=== PATIENT | male | born 1965 | race Hispanic/Latino ===

== ENCOUNTER 2017-04-18 15:31 | Emergency (ER) | payer MEDICAID, MEDICARE ==
[2017-04-18 16:16] LABS: Basophils % (Auto) 1.8 % (0.0-1.8); Eosinophils % (Auto) 8.4 % (0.0-4.3); Hematocrit 47.3 % (35.5-45.6); Hemoglobin 16.2 gm/dl (11.8-15.2); Mean Corpuscular HGB Conc 34 % (32-34); Mean Corpuscular Hemoglobin 32 pg (28-32); Mean Corpuscular Volume 94 fl (84-94); Red Blood Count 5.05 M/mm3 (3.65-5.03); Red Cell Distribution Width 13.5 % (13.2-15.2); White Blood Count 9.5 K/mm3 (4.5-11.0)
[2017-04-18 16:17] LABS: Platelet Count 210 K/mm3 (140-440)
[2017-04-18 16:30] LABS: Anion Gap 18 mmol/L; BUN/Creatinine Ratio 7; Blood Urea Nitrogen 4 mg/dL (9-20); Calcium 8.7 mg/dL (8.4-10.2); Carbon Dioxide 27 mmol/L (22-30); Chloride 97.9 mmol/L (98-107); Glucose 85 mg/dL (75-100); Potassium 4.2 mmol/L (3.6-5.0); Sodium 139 mmol/L (137-145)
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
[2017-04-18] MEDS ORDERED: NORCO 5/325 PO ONE (20:47)
[2017-04-18 22:29] VITALS: BP 140/92
== END 2017-04-18 22:45 | disposition left against medical advice (07) ==
LOC: ED 15:31
DX: R07.89 Other chest pain (principal); I10 Essential (primary) hypertension; R56.9 Unspecified convulsions; F17.200 Nicotine dependence, unspecified, uncomplicated; Z88.8 Allergy status to other drugs, medicaments and biological substances; Y04.8XXA Assault by other bodily force, initial encounter; Y93.89 Activity, other specified; Y92.89 Other specified places as the place of occurrence of the external cause; Y99.8 Other external cause status
CPT/HCPCS: 36415; 71111; 80048; 84484; 85025; 93005; 93010; 99283

== ENCOUNTER 2017-05-14 15:48 | Emergency (ER) | payer MEDICARE ==
[2017-05-14 17:17] LABS: Bilirubin,Urine NEG (Negative); Blood,Urine SM (Negative); Ketones,Urine NEG (Negative); Leukocyte Esterase,Urine NEG (Negative); Nitrite,Urine NEG (Negative); Protein,Urine <15 mg/dL mg/dL (Negative); Urobilinogen,Urine < 2.0 mg/dL (<2.0); WBC,Urine < 1.0 /HPF (0.0-6.0)
[2017-05-14 17:19] LABS: Hematocrit 44.3 % (35.5-45.6); Hemoglobin 15.7 gm/dl (11.8-15.2); Mean Corpuscular HGB Conc 36 % (32-34); Mean Corpuscular Hemoglobin 33 pg (28-32); Mean Corpuscular Volume 92 fl (84-94); Platelet Count 252 K/mm3 (140-440); Red Blood Count 4.79 M/mm3 (3.65-5.03); Red Cell Distribution Width 13.4 % (13.2-15.2); White Blood Count 9.8 K/mm3 (4.5-11.0)
[2017-05-14 17:25] LABS: Alanine Aminotransferase 67 units/L (7-56); Albumin 3.7 g/dL (3.9-5); Albumin/Globulin Ratio 1.4 %; Alkaline Phosphatase 106 units/L (35-129); Anion Gap 18 mmol/L; BUN/Creatinine Ratio 4; Blood Urea Nitrogen 3 mg/dL (9-20); Calcium 8.8 mg/dL (8.4-10.2); Carbon Dioxide 27 mmol/L (22-30); Chloride 99.1 mmol/L (98-107); Glucose 86 mg/dL (75-100); Lipase 38 units/L (13-60); Potassium 3.2 mmol/L (3.6-5.0); Sodium 141 mmol/L (137-145); Total Protein 6.4 g/dL (6.3-8.2)
[2017-05-14] MEDS ORDERED: K-DUR PO ONE (17:32)
[2017-05-14] MEDS ORDERED: BENTYL IM ONE (17:59)
[2017-05-14] MEDS ORDERED: ZOFRAN IV ONE (18:00)
--- NOTE | 2017-05-14 19:33 | Ultrasound Report ---
FINAL REPORT EXAM: US ABDOMEN LIMITED HISTORY: RUQ pain TECHNIQUE: Ultrasound abdomen PRIORS: None. FINDINGS: Liver demonstrates mildly diffuse echogenicity may reflect fatty infiltration No evidence of cholelithiasis or gallbladder wall thickening. No pericholecystic fluid seen. The common bile duct is within normal limits measuring 0.3 centimeters Right kidney demonstrates no evidence of hydronephrosis. It measures 12.5 x 5.7 x 5.3 centimeters cortical thickness is 1.4 centimeters There is some limitations due to patient body habitus IMPRESSION: Mild fatty infiltration of the liver No evidence for cholelithiasis or acute cholecystitis
[2017-05-14 19:40] VITALS: BP 151/101
--- NOTE | 2017-05-14 20:09 | Emergency Department Report ---
ED Abdominal Pain HPI - General Chief Complaint: Abdominal Pain Stated Complaint: ABD PAIN Time Seen by Provider: 05/14/17 17:24 Source: patient Mode of arrival: Stretcher Limitations: No Limitations - History of Present Illness Initial Comments: Patient with RUQ pain for over a month with an US done 2 weeks ago. He saw his PCP today, Dr. Salcedo, who told him he had a bad gallbladder and sent him to outpatient surgery and sent in [facility]. Patient came here instead. He did tell me the US said it was infected. No F/C. MD Complaint: abdominal pain -: Gradual, week(s) (4) Location: RUQ Radiation: none Migration to: no migration Severity scale (0 -10): 8 Quality: cramping, sharp Consistency: constant Improves With: nothing Worsens With: eating Associated Symptoms: nausea, vomiting - Related Data Allergies Allergy/AdvReac Type Severity Reaction Status Date / Time chlorpromazine Allergy Seizure Verified 04/18/17 15:47 [From Thorazine] phenobarbital Allergy Seizure Verified 04/18/17 15:47 phenytoin [From Dilantin] Allergy Seizure Verified 04/18/17 15:47 ED Review of Systems ROS: Stated complaint: ABD PAIN Other details as noted in HPI Constitutional: denies: chills, fever Eyes: denies: eye pain, eye discharge, vision change ENT: denies: ear pain, throat pain Respiratory: denies: cough, shortness of breath, wheezing Cardiovascular: denies: chest pain, palpitations Endocrine: no symptoms reported Gastrointestinal: abdominal pain, nausea. denies: diarrhea Genitourinary: denies: urgency, dysuria Musculoskeletal: denies: back pain, joint swelling, arthralgia Skin: denies: rash, lesions Neurological: denies: headache, weakness, paresthesias Psychiatric: denies: anxiety, depression Hematological/Lymphatic: denies: easy bleeding, easy bruising ED Past Medical Hx - Past Medical History Previous Medical History?: Yes Hx Hypertension: Yes Hx Seizures: Yes Hx Psychiatric Treatment: Yes - Surgical History Past Surgical History?: Yes Additional Surgical History: Lower Back. Right Hip - Social History Smoking Status: Current Every Day Smoker Substance Use Type: None ED Physical Exam - General Limitations: No Limitations General appearance: alert, in no apparent distress - Head Head exam: Present: atraumatic, normocephalic - Eye Eye exam: Present: normal appearance - ENT ENT exam: Present: mucous membranes moist - Neck Neck exam: Present: normal inspection - Respiratory Respiratory exam: Present: normal lung sounds bilaterally. Absent: respiratory distress - Cardiovascular Cardiovascular Exam: Present: regular rate, normal rhythm. Absent: systolic murmur, diastolic murmur, rubs, gallop - GI/Abdominal GI/Abdominal exam: Present: soft, tenderness (RUQ with positive Hinson's sign. No peritonitis or guarding.), normal bowel sounds - Rectal Rectal exam: Present: deferred - Extremities Exam Extremities exam: Present: normal inspection - Back Exam Back exam: Present: normal inspection - Neurological Exam Neurological exam: Present: alert, oriented X3 - Psychiatric Psychiatric exam: Present: normal affect, normal mood - Skin Skin exam: Present: warm, dry, intact, normal color. Absent: rash ED Course Vital Signs 05/14/17 05/14/17 05/14/17 16:00 16:25 16:52 Temperature 98.8 F 98.7 F Pulse Rate 94 H 94 H Respiratory 20 18 15 Rate Blood Pressure 170/90 Blood Pressure 162/102 [Right] O2 Sat by Pulse 99 96 97 Oximetry 05/14/17 05/14/17 05/14/17 17:00 17:16 17:30 Temperature Pulse Rate 98 H 88 93 H Respiratory 12 17 17 Rate Blood Pressure 148/105 157/100 157/100 Blood Pressure [Right] O2 Sat by Pulse 96 97 100 Oximetry 05/14/17 05/14/17 05/14/17 17:46 18:22 18:30 Temperature Pulse Rate 94 H Respiratory 12 Rate Blood Pressure 170/108 170/108 157/104 Blood Pressure [Right] O2 Sat by Pulse 99 99 98 Oximetry 05/14/17 05/14/17 05/14/17 18:46 19:00 19:16 Temperature Pulse Rate 97 H 94 H 94 H Respiratory 15 17 18 Rate Blood Pressure 157/104 157/104 151/101 Blood Pressure [Right] O2 Sat by Pulse 98 97 94 Oximetry 05/14/17 05/14/17 19:30 19:40 Temperature 98.9 F Pulse Rate 97 H Respiratory 17 Rate Blood Pressure 151/101 Blood Pressure [Right] O2 Sat by Pulse 97 Oximetry ED Medical Decision Making - Lab Data Result diagrams: 05/14/17 16:49 05/14/17 16:49 Low potassium but otherwise unremarkable. - EKG Data -: EKG Interpreted by Me EKG shows normal: sinus rhythm, intervals (prolonged LA interval. ), QRS complexes (multiple PVCs), ST-T waves (no changes.) Rate: normal - EKG Data Interpretation: no acute changes - Radiology Data Radiology results: report reviewed No cholecystitis or cholelithiasis. - Medical Decision Making Patient with RUQ pain and told abnormal US and sent to General surgery. I have told him his gallbladder is not infected and he should follow up with the referal given by his PCP. He should get the bentyl from the pharmacy as he was sure that was the medication sent into the pharmacy. Critical care attestation.: If time is entered above; I have spent that time in minutes in the direct care of this critically ill patient, excluding procedure time. ED Disposition Clinical Impression: Abdominal pain, RUQ Disposition: DC-01 TO HOME OR SELFCARE Is pt being admited?: No Does the pt Need Aspirin: No Condition: Good Instructions: Abdominal Pain (ED), Non-Alcoholic Fatty Liver Disease (ED) Referrals: Mary Salcedo [Other] - 3-5 Days Time of Disposition: 20:14
== END 2017-05-14 20:31 | disposition home or self-care (01) ==
LOC: ED 15:48
DX: R10.11 Right upper quadrant pain (principal)
CPT/HCPCS: 36415; 76705; 80053; 81001; 83690; 85025; 93005; 93010; 96372; 96374; 99284; J0500; J2405

== ENCOUNTER 2017-08-13 23:04 | Emergency (ER) | payer MEDICARE ==
[2017-08-13] MEDS ORDERED: ASPIRIN PO ONE (23:34)
[2017-08-13 23:59] LABS: Basophils # (Auto) 0.1 K/mm3 (0.0-0.1); Basophils % (Auto) 1.1 % (0.0-1.8); Eosinophils # (Auto) 0.9 K/mm3 (0.0-0.4); Eosinophils % (Auto) 7.1 % (0.0-4.3); Hematocrit 49.1 % (35.5-45.6); Hemoglobin 17.1 gm/dl (11.8-15.2); Lymphocytes # (Auto) 2.9 K/mm3 (1.2-5.4); Lymphocytes % (Auto) 21.9 % (13.4-35.0); Mean Corpuscular HGB Conc 35 % (32-34); Mean Corpuscular Hemoglobin 33 pg (28-32); Mean Corpuscular Volume 94 fl (84-94); Monocytes % (Auto) 7.3 % (0.0-7.3); Platelet Count 284 K/mm3 (140-440); Red Blood Count 5.24 M/mm3 (3.65-5.03); Red Cell Distribution Width 13.9 % (13.2-15.2)
[2017-08-14 00:14] LABS: BUN/Creatinine Ratio 11; Blood Urea Nitrogen 9 mg/dL (9-20); Calcium 8.7 mg/dL (8.4-10.2); Hemolysis Index 30
--- NOTE | 2017-08-14 07:46 | Emergency Department Report ---
ED Chest Pain HPI - General Chief Complaint: Chest Pain Stated Complaint: CP; WEAKNESS Time Seen by Provider: 08/14/17 07:42 Source: patient Mode of arrival: Stretcher Limitations: No Limitations - Related Data Allergies Allergy/AdvReac Type Severity Reaction Status Date / Time chlorpromazine Allergy Seizure Verified 04/18/17 15:47 [From Thorazine] phenobarbital Allergy Seizure Verified 04/18/17 15:47 phenytoin [From Dilantin] Allergy Seizure Verified 04/18/17 15:47 ED Review of Systems ROS: Stated complaint: CP; WEAKNESS Other details as noted in HPI ED Past Medical Hx - Past Medical History Hx Hypertension: Yes Hx Heart Attack/AMI: Yes (PVC's) Hx Seizures: Yes Hx Psychiatric Treatment: Yes (Bipolar) Additional medical history: Sleep Apnea - Surgical History Additional Surgical History: Lower Back. Right Hip - Social History Smoking Status: Current Every Day Smoker Substance Use Type: None ED Physical Exam - General Limitations: No Limitations ED Course Vital Signs 08/13/17 08/13/17 23:16 23:27 Temperature 98.1 F 98.1 F Pulse Rate 98 H 98 H Respiratory 18 18 Rate Blood Pressure 179/107 179/107 O2 Sat by Pulse 96 96 Oximetry ED Medical Decision Making - Lab Data Result diagrams: 08/13/17 23:48 08/13/17 23:48 Laboratory Results - last 24 hr 08/13/17 08/13/17 08/14/17 23:48 23:48 02:59 WBC 13.1 H RBC 5.24 H Hgb 17.1 H Hct 49.1 H MCV 94 MCH 33 H MCHC 35 H RDW 13.9 Plt Count 284 Lymph % (Auto) 21.9 [place] % (Auto) 7.3 Eos % (Auto) 7.1 H Baso % (Auto) 1.1 Lymph # 2.9 [place] # 1.0 H Eos # 0.9 H Baso # 0.1 Seg Neutrophils % 62.6 Seg Neutrophils # 8.2 H Sodium 137 Potassium 3.4 L Chloride 96.0 L Carbon Dioxide 24 Anion Gap 20 BUN 9 Creatinine 0.8 Estimated GFR > 60 BUN/Creatinine Ratio 11 Glucose 108 H Calcium 8.7 Troponin T < 0.010 < 0.010 08/14/17 05:52 WBC RBC Hgb Hct MCV MCH MCHC RDW Plt Count Lymph % (Auto) [place] % (Auto) Eos % (Auto) Baso % (Auto) Lymph # [place] # Eos # Baso # Seg Neutrophils % Seg Neutrophils # Sodium Potassium Chloride Carbon Dioxide Anion Gap BUN Creatinine Estimated GFR BUN/Creatinine Ratio Glucose Calcium Troponin T < 0.010 Critical care attestation.: If time is entered above; I have spent that time in minutes in the direct care of this critically ill patient, excluding procedure time. ED Disposition Condition: Stable Referrals: RONNIE GABRIEL MD [Primary Care Provider] - 3-5 Days
--- NOTE | 2017-08-14 08:41 | XRay Report ---
AP CHEST: HISTORY: Cough AP view of the chest demonstrates a normal mediastinal and cardiac contour with clear lungs and normal bony and soft tissue structures. IMPRESSION: No acute process. No significant change since 04/18/17.
[2017-08-14 08:50] LABS: INR 0.88 (0.87-1.13)
[2017-08-14 08:51] LABS: Partial Thromboplastin Time 25.3 Sec. (24.2-36.6)
--- NOTE | 2017-08-14 09:34 | Cat Scan Report ---
CT ABDOMEN PELVIS WITH CONTRAST: HISTORY: Right upper quadrant abdominal pain. COMPARISON: none. TECHNIQUE: Helical CT in 1.25mm intervals following IV contrast. Sagittal and coronal reconstructions. FINDINGS: Lung bases: Normal. Liver: There is moderate diffuse fatty infiltration throughout the liver. No focal mass or surface nodularity. The portal venous system is patent. Biliary system: Normal. Pancreas: Normal. Spleen: Normal. Kidneys/ureters/bladder: There are 2 exophytic cysts at the inferior pole the left kidney measuring up to 2.5 cm. The kidneys, ureters and bladder are within normal limits otherwise. Normal prostate gland. Adrenal glands: Normal. Aorta: Normal. Intestines: Normal. Appendix: Appendectomy. Ascites: None. Adenopathy: None. Musculoskeletal: Mild lumbar spondylosis. IMPRESSION: No acute process is identified in the abdomen or pelvis. Fatty change of the liver. Left renal cysts. Appendectomy.
[2017-08-14 09:56] VITALS: BP 161/110
[2017-08-14 16:06] LABS: Alanine Aminotransferase 58 units/L (7-56); Lipase 38 units/L (13-60)
[2017-08-14 16:09] LABS: Bilirubin,Direct < 0.2 mg/dL (0-0.2)
== END 2017-08-14 14:39 | disposition home or self-care (01) ==
LOC: ED 23:04
DX: R07.89 Other chest pain (principal); R53.1 Weakness
CPT/HCPCS: 36415; 71045; 74177; 80048; 80074; 82140; 83690; 83735; 83880; 84484; 85025; 85610; 85730; 87040; 93005; 93010; Q9967

== ENCOUNTER 2018-03-01 13:30 | Emergency (ER) | payer MEDICARE ==
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
[2018-03-01 14:47] LABS: Hematocrit 45.6 % (35.5-45.6); Hemoglobin 15.7 gm/dl (11.8-15.2); Mean Corpuscular HGB Conc 34 % (32-34); Mean Corpuscular Hemoglobin 32 pg (28-32); Mean Corpuscular Volume 94 fl (84-94); Platelet Count 246 K/mm3 (140-440); Red Blood Count 4.85 M/mm3 (3.65-5.03); Red Cell Distribution Width 13.8 % (13.2-15.2)
[2018-03-01 14:48] LABS: INR 0.92 (0.87-1.13)
[2018-03-01 14:49] LABS: Partial Thromboplastin Time 23.9 Sec. (24.2-36.6)
[2018-03-01 14:52] LABS: Alanine Aminotransferase 25 units/L (7-56); Albumin 4.3 g/dL (3.9-5); BUN/Creatinine Ratio 10; Blood Urea Nitrogen 9 mg/dL (9-20); Calcium 9.5 mg/dL (8.4-10.2); Hemolysis Index 4
--- NOTE | 2018-03-01 14:55 | XRay Report ---
FINAL REPORT EXAM: XR CHEST ROUTINE 2V HISTORY: CP TECHNIQUE: Frontal and lateral chest x-ray. PRIORS: None. FINDINGS: Cardiac and mediastinal silhouette within normal limits. Lungs are normally expanded. No significant vascular congestion. No focal consolidation, apparent pleural effusion or pneumothorax. Bony thorax grossly unremarkable. IMPRESSION: 1. No acute findings.
[2018-03-01] MEDS ORDERED: LACTATED RINGERS 1,000 ML IV SCH (15:00)
[2018-03-01 15:44] LABS: Bilirubin,Urine NEG (Negative); Blood,Urine NEG (Negative); Color,Urine Colorless (Yellow); Protein,Urine <15 mg/dL mg/dL (Negative); RBC,Urine < 1.0 /HPF (0.0-6.0); Urobilinogen,Urine < 2.0 mg/dL (<2.0); WBC,Urine < 1.0 /HPF (0.0-6.0)
[2018-03-02 17:24] VITALS: BP 138/84
== END 2018-03-02 17:22 ==
LOC: ED 13:30 → EEVIPCON 13:30 → ED 03-02 17:22
DX: F41.9 Anxiety disorder, unspecified (principal); F31.9 Bipolar disorder, unspecified; I10 Essential (primary) hypertension; I25.2 Old myocardial infarction; F17.200 Nicotine dependence, unspecified, uncomplicated; Z86.73 Personal history of transient ischemic attack (TIA), and cerebral infarction without residual deficits; Z88.8 Allergy status to other drugs, medicaments and biological substances
CPT/HCPCS: 36415; 71046; 80053; 80164; 81001; 84484; 85027; 85610; 85730; 93005; 93010; 99284; J7120

== ENCOUNTER 2019-01-27 20:09 | Observation (INO) | payer MEDICARE ==
[2019-01-27] MEDS ORDERED: NACL 0.9% 1000 ML 1,000 ML ONE (20:40)
[2019-01-27] MEDS ORDERED: ASPIRIN PO ONE (20:43)
[2019-01-27] MEDS ORDERED: NACL 0.9% 1000 ML 1,000 ML IV ONE (20:45)
[2019-01-27 21:09] LABS: Hematocrit 42.8 % (35.5-45.6); Hemoglobin 14.9 gm/dl (11.8-15.2); Mean Corpuscular HGB Conc 35 % (32-34); Mean Corpuscular Volume 92 fl (84-94); Red Blood Count 4.65 M/mm3 (3.65-5.03)
[2019-01-27 21:10] LABS: Platelet Count 244 K/mm3 (140-440)
[2019-01-27 21:54] LABS: Calcium 9.2 mg/dL (8.4-10.2)
[2019-01-27] MEDS ORDERED: ZOFRAN IV PRN (22:26)
[2019-01-27] MEDS ORDERED: SODIUM CHLORIDE FLUSH SYRINGE 10 ML IV PRN (22:26)
[2019-01-27] MEDS ORDERED: TYLENOL PO PRN (22:26)
--- NOTE | 2019-01-27 22:27 | XRay Report ---
CHEST 1 VIEW INDICATION / CLINICAL INFORMATION: Chest Pain. COMPARISON: 01/21/2019 FINDINGS: SUPPORT DEVICES: None. HEART / MEDIASTINUM: No significant abnormality. LUNGS / PLEURA: No significant pulmonary or pleural abnormality. No pneumothorax. ADDITIONAL FINDINGS: Nodular density in the previous examination projecting over the right lower tino thorax is not reproduced. IMPRESSION: 1. No acute findings. Signer Name: Toby Shultz MD Signed: 01/27/2019 10:22 PM Workstation Name: [id number]
--- NOTE | 2019-01-27 22:29 | History and Physical Report ---
History of Present Illness Date of examination: 01/27/19 History of present illness: 53 -year-old with history of hypertension, bipolar, coronary artery disease, Bipolar, hyperlipidemia,. CHF comes emergency room with complaints of chest pain in the epigastric. The patient was just discharged from the hospital this morn ing, s/p stent to the LAD. He described pain as stabbing, intermittent every 30 minutes, intensity 5/10, relieved with nitroglycerin, associated with shortness breath, diaphoresis, no nausea, vomiting, palpitations eview Of Systems: Constitutional: no weight loss, fever, chills Ears, eyes, nose, mouth and throat: no nasal congestion, no nasal discharge, no sinus pressure, blurry vision, diplopia Neck: No neck pain or rigidity. Cardiovascular: No palpitations Respiratory: No cough Gastrointestinal: No hematochezia, abdominal pain Genitourinary : no dysuria, frequency , hematuria Musculoskeletal: no muscle ache , joint pain Integumentary: no rash, no pruritis Neurological: no parathesias, focal weakness Endocrine: no cold or heat intolerance, no polyuria or polydipsia Hematologic/Lymphatic: no easy bruising, no easy bleeding, no gland swelling Allergic/Immunologic: no urticaria, no angioedema. PAST MEDICAL HISTORY:hypertension, bipolar, coronary artery disease, Bipolar, hyperlipidemia,. CHF PAST SURGICAL HISTORY: Cyst removal from back FAMILY HISTORY:hypertension, diabetes SOCIAL HISTORY: Denies tobacco, drugs, alcohol Medications and Allergies Allergies Allergy/AdvReac Type Severity Reaction Status Date / Time chlorpromazine Allergy Seizure Verified 04/18/17 15:47 [From Thorazine] phenobarbital Allergy Seizure Verified 04/18/17 15:47 phenytoin [From Dilantin] Allergy Seizure Verified 04/18/17 15:47 Home Medications Medication Instructions Recorded Confirmed Last Taken Type Lansoprazole [Prevacid] 15 mg PO BID #30 cap 06/05/18 01/23/19 Unknown Rx Quetiapine Fumarate [Seroquel] 400 mg PO QHS 01/24/19 01/23/19 Unknown History Aspirin EC [Halfprin EC] 81 mg PO QDAY #30 tablet. 01/27/19 Unknown Rx AtorvaSTATin [Lipitor] 40 mg PO QHS #30 tablet 01/27/19 Unknown Rx Carvedilol [Coreg] 6.25 mg PO BID #60 tablet 01/27/19 Unknown Rx Clopidogrel [Plavix] 75 mg PO QDAY #30 tablet 01/27/19 Unknown Rx Furosemide [Lasix TAB] 20 mg PO QDAY #30 tablet 01/27/19 Unknown Rx Lisinopril [Zestril TAB] 10 mg PO QDAY #30 tablet 01/27/19 Unknown Rx Exam - Physical Exam Narrative exam: General Apperance: The patient sitting in bed no acute distress HEENT: Normocephalic, atraumatic. Pupils equally round and reactive to light, e xtraocular movement intact, and no sclericterus or JVD or thyromegaly or nodule. Neck supple, no carotid bruit, mucous membranes moist, no exudate or erythema Heart: S1-S2, regular is rhythm Lungs: Clear to auscultation bilaterally, breathing comfortable Abdomen: Positive bowel sounds, soft, nontender, nondistended, no organomegaly Extremities: No edema cyanosis clubbing Skin: no rash, nodule, warm and dry Neuro:CN 2 -12 intact, motor/sensory intact, speech is fluent - Constitutional Vitals: Temp Pulse Resp BP Pulse Ox 76 15 107/70 95 01/27/19 22:00 01/27/19 22:00 01/27/19 22:00 01/27/19 20:46 Results - Labs CBC & Chem 7: 01/27/19 20:51 01/27/19 20:51 Labs: Abnormal lab results 01/27/19 01/27/19 Range/Units 20:51 20:51 WBC 13.8 H (4.5-11.0) K/mm3 MCHC 35 H (32-34) % RDW 13.0 L (13.2-15.2) % Creatinine 1.7 H D (0.8-1.5) mg/dL Troponin T 0.169 H* (0.00-0.029) ng/mL - Imaging and Cardiology EKG: image reviewed Chest x-ray: report reviewed Assessment and Plan Assessment Chest pain Recent stent to LAD coronary artery disease hypertension Bipolar hyperlipidemia . Chronic kidney disease Plan Admit to medicine Check cardiac enzymes, consult cardiology Continue appropiate medications, start gentle IV fluids DVT medications
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
[2019-01-28 00:03] LABS: Basophils % (Manual) 0 % (0.0-1.8); Platelet Estimate Consistent w Auto; RBC Morphology Normal; Total Cells Counted 100
[2019-01-28 01:14] LABS: Basophils # (Auto) 0.1 K/mm3 (0.0-0.1); Basophils % (Auto) 1.1 % (0.0-1.8); Eosinophils # (Auto) 0.8 K/mm3 (0.0-0.4); Eosinophils % (Auto) 6.2 % (0.0-4.3); Lymphocytes # (Auto) 2.9 K/mm3 (1.2-5.4); Monocytes # (Auto) 1.2 K/mm3 (0.0-0.8); Monocytes % (Auto) 8.6 % (0.0-7.3)
[2019-01-28 02:17] LABS: Creatine Kinase MB 3.8 ng/mL (0.0-4.0)
[2019-01-28 04:51] LABS: Basophils # (Auto) 0.1 K/mm3 (0.0-0.1); Basophils % (Auto) 0.8 % (0.0-1.8); Eosinophils # (Auto) 0.9 K/mm3 (0.0-0.4); Eosinophils % (Auto) 8.5 % (0.0-4.3); Hemoglobin 15.2 gm/dl (11.8-15.2); Lymphocytes # (Auto) 2.6 K/mm3 (1.2-5.4); Lymphocytes % (Auto) 25.6 % (13.4-35.0); Mean Corpuscular HGB Conc 35 % (32-34); Mean Corpuscular Volume 93 fl (84-94); Monocytes # (Auto) 0.8 K/mm3 (0.0-0.8); Monocytes % (Auto) 8.1 % (0.0-7.3); Platelet Count 207 K/mm3 (140-440); Red Blood Count 4.75 M/mm3 (3.65-5.03); Red Cell Distribution Width 13.3 % (13.2-15.2)
[2019-01-28 04:59] LABS: BUN/Creatinine Ratio 13; Blood Urea Nitrogen 15 mg/dL (9-20); Hemolysis Index 2
[2019-01-28 05:08] LABS: Creatine Kinase MB 3.3 ng/mL (0.0-4.0)
[2019-01-28] MEDS: NACL 0.9% 1000 ML 1,000 ML IV SCH ×3 (09:41→20:15)
[2019-01-28] MEDS: LOVENOX SUB-Q SCH (09:41)
[2019-01-28] MEDS: PLAVIX PO SCH (09:42)
[2019-01-28] MEDS: HALFPRIN EC PO SCH (09:42)
[2019-01-28] MEDS: SODIUM CHLORIDE FLUSH SYRINGE 10 ML IV SCH ×2 (09:42→20:18)
[2019-01-28] MEDS: PROTONIX PO SCH ×2 (09:42→20:18)
[2019-01-28] MEDS ORDERED: LOVENOX SUB-Q SCH (10:00)
--- NOTE | 2019-01-28 13:49 | Consultation ---
History of Present Illness Consult date: 01/28/19 Consult reason: chest pain History of present illness: The patient is a 53-year-old man with coronary artery disease, who underwent coronary stent placement to the LAD 2 days ago, with a 5.0 mm bare-metal stent. Diffuse moderate to severe disease of a small nondominant right coronary was recommended for medical therapy. There was a moderately severe ischemic cardiomyopathy with ejection fraction 30-35%. He was just discharged yesterday, and after a few hours readmitted with atypical chest pain. Today, he looks and feels better, no further chest pain. ECG was normal sinus rhythm, normal ECG with no ST or T-wave abnormalities. The measured troponin levels indicate a continuing downward trend from his post intervention levels. Past History Past Medical History: CAD, hypertension Medications and Allergies Allergies Allergy/AdvReac Type Severity Reaction Status Date / Time chlorpromazine Allergy Seizure Verified 04/18/17 15:47 [From Thorazine] phenobarbital Allergy Seizure Verified 04/18/17 15:47 phenytoin [From Dilantin] Allergy Seizure Verified 04/18/17 15:47 Home Medications Medication Instructions Recorded Confirmed Last Taken Type Lansoprazole [Prevacid] 15 mg PO BID #30 cap 06/05/18 01/23/19 Unknown Rx Quetiapine Fumarate [Seroquel] 400 mg PO QHS 01/24/19 01/23/19 Unknown History Aspirin EC [Halfprin EC] 81 mg PO QDAY #30 tablet. 01/27/19 Unknown Rx AtorvaSTATin [Lipitor] 40 mg PO QHS #30 tablet 01/27/19 Unknown Rx Carvedilol [Coreg] 6.25 mg PO BID #60 tablet 01/27/19 Unknown Rx Clopidogrel [Plavix] 75 mg PO QDAY #30 tablet 01/27/19 Unknown Rx Furosemide [Lasix TAB] 20 mg PO QDAY #30 tablet 01/27/19 Unknown Rx Lisinopril [Zestril TAB] 10 mg PO QDAY #30 tablet 01/27/19 Unknown Rx Active Meds: Active Medications Acetaminophen (Tylenol) 650 mg PO Q4H PRN PRN Reason: Pain MILD(1-3)/Fever >100.5/CEJA Last Admin: 01/28/19 09:49 Dose: 650 mg Documented by: Aspirin (Halfprin Ec) 81 mg PO QDAY [facility] Last Admin: 01/28/19 09:42 Dose: 81 mg Documented by: Atorvastatin Calcium (Lipitor) 40 mg PO QHS [facility] Clopidogrel Bisulfate (Plavix) 75 mg PO QDAY [facility] Last Admin: 01/28/19 09:42 Dose: 75 mg Documented by: Enoxaparin Sodium (Lovenox) 40 mg SUB-Q QDAY [facility] Last Admin: 01/28/19 09:41 Dose: 40 mg Documented by: Sodium Chloride (Nacl 0.9% 1000 Ml) 1,000 mls @ 50 mls/hr IV DIRECT [facility] Last Admin: 01/28/19 09:41 Dose: 50 mls/hr Documented by: Ondansetron HCl (Zofran) 4 mg IV Q8H PRN PRN Reason: Nausea And Vomiting Pantoprazole Sodium (Protonix) 20 mg PO BID [facility] Last Admin: 01/28/19 09:42 Dose: 20 mg Documented by: Quetiapine Fumarate (Seroquel) 400 mg PO QHS [facility] Sodium Chloride (Sodium Chloride Flush Syringe 10 Ml) 10 ml IV BID [facility] Last Admin: 01/28/19 09:42 Dose: 10 ml Documented by: Sodium Chloride (Sodium Chloride Flush Syringe 10 Ml) 10 ml IV PRN PRN PRN Reason: LINE FLUSH Review of Systems Cardiovascular: chest pain, no orthopnea, no palpitations, no rapid/irregular heart beat, no edema, no syncope, no lightheadedness, no shortness of breath Physical Examination Vital Signs Pulse Resp BP 79 26 H 89/48 01/27/19 20:34 01/27/19 20:34 01/27/19 20:34 General appearance: no acute distress HEENT: Positive: PERRL Neck: Positive: neck supple Cardiac: Positive: Reg Rate and Rhythm Lungs: Positive: Decreased Breath Sounds Neuro: Positive: Grossly Intact Abdomen: Positive: Soft Male genitourinary: Positive: deferred Skin: Positive: Clear Extremities: Absent: edema Results 01/28/19 03:55 01/28/19 03:55 Cardiac Enzymes 01/27/19 01/28/19 Range/Units 22:52 03:55 CK-MB (CK-2) 3.8 3.3 (0.0-4.0) ng/mL CBC 01/27/19 01/28/19 Range/Units 20:51 03:55 WBC 13.8 H 10.2 (4.5-11.0) K/mm3 RBC 4.65 4.75 (3.65-5.03) M/mm3 Hgb 14.9 15.2 (11.8-15.2) gm/dl Hct 42.8 44.0 (35.5-45.6) % Plt Count 244 207 (140-440) K/mm3 Lymph # 2.9 2.6 (1.2-5.4) K/mm3 Taliaferro # 1.2 H 0.8 (0.0-0.8) K/mm3 Eos # 0.8 H 0.9 H (0.0-0.4) K/mm3 Baso # 0.1 0.1 (0.0-0.1) K/mm3 Comprehensive Metabolic Panel 01/27/19 01/28/19 Range/Units 20:51 03:55 Sodium 142 142 (137-145) mmol/L Potassium 3.9 3.7 (3.6-5.0) mmol/L Chloride 104.1 106.3 (98-107) mmol/L Carbon Dioxide 23 25 (22-30) mmol/L BUN 13 15 (9-20) mg/dL Creatinine 1.7 H D 1.2 (0.8-1.5) mg/dL Glucose 83 103 H (75-100) mg/dL Calcium 9.2 9.0 (8.4-10.2) mg/dL EKG interpretations - Telemetry EKG Rhythm: Sinus Rhythm Assessment and Plan - Patient Problems (1) Chest pain Current Visit: No Status: Acute Qualifiers: Chest pain type: unspecified Qualified Code(s): R07.9 - Chest pain, unspecified Plan to address problem: Patient has coronary artery disease status post stenting to the mid LAD, no further ischemic workup is indicated, continue medical therapy including dual antiplatelet therapy.
--- NOTE | 2019-01-28 14:37 | Progress Note ---
History Interval history: chest pain Hospitalist Physical - Constitutional Vitals: Temp Pulse Resp BP Pulse Ox 97.6 F 55 L 18 117/69 97 01/28/19 07:35 01/28/19 07:35 01/28/19 07:35 01/28/19 07:35 01/28/19 08:42 General appearance: Present: no acute distress Results - Labs CBC & Chem 7: 01/28/19 03:55 01/28/19 03:55 Labs: Laboratory Last Values WBC 10.2 K/mm3 (4.5-11.0) 01/28/19 03:55 RBC 4.75 M/mm3 (3.65-5.03) 01/28/19 03:55 Hgb 15.2 gm/dl (11.8-15.2) 01/28/19 03:55 Hct 44.0 % (35.5-45.6) 01/28/19 03:55 MCV 93 fl (84-94) 01/28/19 03:55 MCH 32 pg (28-32) 01/28/19 03:55 MCHC 35 % (32-34) H 01/28/19 03:55 RDW 13.3 % (13.2-15.2) 01/28/19 03:55 Plt Count 207 K/mm3 (140-440) 01/28/19 03:55 Lymph % (Auto) 25.6 % (13.4-35.0) 01/28/19 03:55 Mckenzie % (Auto) 8.1 % (0.0-7.3) H 01/28/19 03:55 Eos % (Auto) 8.5 % (0.0-4.3) H 01/28/19 03:55 Baso % (Auto) 0.8 % (0.0-1.8) 01/28/19 03:55 Lymph # 2.6 K/mm3 (1.2-5.4) 01/28/19 03:55 Mckenzie # 0.8 K/mm3 (0.0-0.8) 01/28/19 03:55 Eos # 0.9 K/mm3 (0.0-0.4) H 01/28/19 03:55 Baso # 0.1 K/mm3 (0.0-0.1) 01/28/19 03:55 Add Manual Diff Complete 01/27/19 20:51 Total Counted 100 01/27/19 20:51 Seg Neutrophils % 57.0 % (40.0-70.0) 01/28/19 03:55 Seg Neuts % (Manual) 65.0 % (40.0-70.0) 01/27/19 20:51 0 % 01/27/19 20:51 21.0 % (13.4-35.0) 01/27/19 20:51 Reactive Lymphs % (Man) 0 % 01/27/19 20:51 7.0 % (0.0-7.3) 01/27/19 20:51 7.0 % (0.0-4.3) H 01/27/19 20:51 0 % (0.0-1.8) 01/27/19 20:51 0 % 01/27/19 20:51 0 % 01/27/19 20:51 0 % 01/27/19 20:51 0 % 01/27/19 20:51 Nucleated RBC % Not Reportable 01/27/19 20:51 Seg Neutrophils # 5.8 K/mm3 (1.8-7.7) 01/28/19 03:55 Seg Neutrophils # Man 9.0 K/mm3 (1.8-7.7) H 01/27/19 20:51 Band Neutrophils # 0.0 K/mm3 01/27/19 20:51 2.9 K/mm3 (1.2-5.4) 01/27/19 20:51 Abs React Lymphs (Man) 0.0 K/mm3 01/27/19 20:51 1.0 K/mm3 (0.0-0.8) H 01/27/19 20:51 1.0 K/mm3 (0.0-0.4) H 01/27/19 20:51 0.0 K/mm3 (0.0-0.1) 01/27/19 20:51 0.0 K/mm3 01/27/19 20:51 0.0 K/mm3 01/27/19 20:51 0.0 K/mm3 01/27/19 20:51 Blast Cells # 0.0 K/mm3 01/27/19 20:51 WBC Morphology Not Reportable 01/27/19 20:51 Hypersegmented Neuts Not Reportable 01/27/19 20:51 Hyposegmented Neuts Not Reportable 01/27/19 20:51 Hypogranular Neuts Not Reportable 01/27/19 20:51 Not Reportable 01/27/19 20:51 Not Reportable 01/27/19 20:51 Not Reportable 01/27/19 20:51 Not Reportable 01/27/19 20:51 Not Reportable 01/27/19 20:51 Not Reportable 01/27/19 20:51 Consistent w auto 01/27/19 20:51 Not Reportable 01/27/19 20:51 Plt Clumps, EDTA Not Reportable 01/27/19 20:51 Not Reportable 01/27/19 20:51 Not Reportable 01/27/19 20:51 Not Reportable 01/27/19 20:51 Plt Morphology Comment Not Reportable 01/27/19 20:51 RBC Morphology Normal 01/27/19 20:51 Dimorphic RBCs Not Reportable 01/27/19 20:51 Not Reportable 01/27/19 20:51 Not Reportable 01/27/19 20:51 Not Reportable 01/27/19 20:51 Not Reportable 01/27/19 20:51 Not Reportable 01/27/19 20:51 Not Reportable 01/27/19 20:51 Not Reportable 01/27/19 20:51 Not Reportable 01/27/19 20:51 Not Reportable 01/27/19 20:51 Not Reportable 01/27/19 20:51 Not Reportable 01/27/19 20:51 Not Reportable 01/27/19 20:51 Not Reportable 01/27/19 20:51 Not Reportable 01/27/19 20:51 Not Reportable 01/27/19 20:51 Not Reportable 01/27/19 20:51 Not Reportable 01/27/19 20:51 Not Reportable 01/27/19 20:51 Not Reportable 01/27/19 20:51 Acanthocytes (Spur) Not Reportable 01/27/19 20:51 Rouleaux Not Reportable 01/27/19 20:51 Not Reportable 01/27/19 20:51 Not Reportable 01/27/19 20:51 Not Reportable 01/27/19 20:51 Not Reportable 01/27/19 20:51 Hem Pathologist Commnt No 01/27/19 20:51 Sodium 142 mmol/L (137-145) 01/28/19 03:55 Potassium 3.7 mmol/L (3.6-5.0) 01/28/19 03:55 Chloride 106.3 mmol/L (98-107) 01/28/19 03:55 Carbon Dioxide 25 mmol/L (22-30) 01/28/19 03:55 14 mmol/L 01/28/19 03:55 BUN 15 mg/dL (9-20) 01/28/19 03:55 1.2 mg/dL (0.8-1.5) 01/28/19 03:55 Estimated GFR > 60 ml/min 01/28/19 03:55 13 % 01/28/19 03:55 Glucose 103 mg/dL (75-100) H 01/28/19 03:55 Calcium 9.0 mg/dL (8.4-10.2) 01/28/19 03:55 76 units/L (55-170) 01/28/19 03:55 CK-MB (CK-2) 3.3 ng/mL (0.0-4.0) 01/28/19 03:55 CK-MB (CK-2) Rel Index 4.3 (0-4) H 01/28/19 03:55 0.085 ng/mL (0.00-0.029) H 01/28/19 03:55 0.088 ng/mL (0.00-0.029) H 01/28/19 03:55 Active Medications - Current Medications Current Medications: Generic Name Dose Route Start Last Admin Trade Name Freq PRN Reason Stop Dose Admin Acetaminophen 650 mg 01/27/19 22:26 01/28/19 09:49 Tylenol PO 650 mg Q4H PRN Administration Pain MILD(1-3)/Fever >100.5/CEJA Aspirin 81 mg 01/28/19 10:00 01/28/19 09:42 Halfprin Ec PO 81 mg QDAY SONJA Administration Atorvastatin Calcium 40 mg 01/28/19 22:00 Lipitor PO QHS [facility] Carvedilol 3.125 mg 01/28/19 15:00 Coreg PO BID [facility] Clopidogrel Bisulfate 75 mg 01/28/19 10:00 01/28/19 09:42 Plavix PO 75 mg QDAY SONJA Administration Enoxaparin Sodium 40 mg 01/28/19 10:00 01/28/19 09:41 Lovenox SUB-Q 40 mg QDAY SONJA Administration Sodium Chloride 1,000 mls @ 50 mls/hr 01/27/19 23:00 01/28/19 09:41 Nacl 0.9% 1000 Ml IV 50 mls/hr DIRECT SONJA Administration Isosorbide Mononitrate 30 mg 01/28/19 15:00 Imdur PO QDAY SONJA Lisinopril 5 mg 01/28/19 15:00 Zestril PO QDAY [facility] Ondansetron HCl 4 mg 01/27/19 22:26 Zofran IV Q8H PRN Nausea And Vomiting Pantoprazole Sodium 20 mg 01/28/19 10:00 01/28/19 09:42 Protonix PO 20 mg BID SONJA Administration Quetiapine Fumarate 400 mg 01/28/19 22:00 Seroquel PO QHS SONJA Sodium Chloride 10 ml 01/28/19 10:00 01/28/19 09:42 Sodium Chloride Flush Syringe 10 Ml IV 10 ml BID SONJA Administration Sodium Chloride 10 ml 01/27/19 22:26 Sodium Chloride Flush Syringe 10 Ml IV PRN PRN LINE FLUSH
[2019-01-28] MEDS: ZESTRIL PO SCH (15:41)
[2019-01-28] MEDS: IMDUR PO SCH (15:41)
[2019-01-28] MEDS: COREG PO SCH ×3 (15:42→22:32)
[2019-01-29 04:41] VITALS: BP 98/50
[2019-01-29] MEDS: PROTONIX PO SCH ×2 (07:33→10:05)
[2019-01-29] MEDS: SODIUM CHLORIDE FLUSH SYRINGE 10 ML IV SCH ×2 (07:33→10:05)
[2019-01-29] MEDS: COREG PO SCH (10:04)
[2019-01-29] MEDS: IMDUR PO SCH (10:05)
[2019-01-29] MEDS: PLAVIX PO SCH (10:05)
[2019-01-29] MEDS: LOVENOX SUB-Q SCH (10:05)
[2019-01-29] MEDS: ZESTRIL PO SCH (10:05)
[2019-01-29] MEDS: HALFPRIN EC PO SCH (10:05)
--- NOTE | 2019-01-29 10:14 | Progress Note ---
Assessment and Plan Chest pain, atypical ECG was normal sinus rhythm, normal ECG with no ST or T-wave abnormalities. The measured troponin levels indicate a continuing downward trend from his post intervention levels. Hx of coronary artery disease s/p coronary stent placement to the LAD 3 days ago, with a 5.0 mm bare-metal stent. Ischemic cardiomyopathy ejection fraction 30-35%. No further ischemic workup is indicated Continue medical therapy for coronary artery disease including dual antiplatelet therapy. Stable for cardiac discharge. Follow up with [facility] on Feb.03 at 3p. Subjective Date of service: 01/29/19 Interval history: Patient is resting in bed comfortably, no chest pain or shortness of breath. Objective Vital Signs Temp Pulse Resp BP BP Pulse Ox 01/29/19 04:41 56 L 94 01/29/19 04:40 98.3 F 19 98/50 01/29/19 02:00 56 L 01/28/19 23:39 97.6 F 60 18 108/44 96 01/28/19 20:17 66 139/96 01/28/19 19:09 98.3 F 62 18 133/84 99 01/28/19 18:30 66 01/28/19 15:41 98.9 F 66 18 139/96 - Physical Examination General: No Apparent Distress HEENT: Positive: PERRL Neck: Positive: neck supple Cardiac: Positive: Reg Rate and Rhythm Lungs: Positive: Decreased Breath Sounds Neuro: Positive: Grossly Intact Abdomen: Positive: Soft Extremities: Absent: edema
--- NOTE | 2019-01-29 11:12 | Discharge Summary ---
Providers - Providers Date of Admission: 01/27/19 22:26 Date of discharge: 01/29/19 Attending physician: RONNIE MOORE 01/27/19 22:26 Consult to Physician [CONS] Routine Comment: Consulting Provider: REGGIE SOTO Physician Instructions: Reason For Exam: cp Hospitalization Condition: Fair Disposition: DC-01 TO HOME OR SELFCARE Exam - Constitutional Vitals: Temp Pulse Resp BP Pulse Ox 98.3 F 56 L 19 98/50 94 01/29/19 04:40 01/29/19 04:41 01/29/19 04:40 01/29/19 04:40 01/29/19 04:41 Plan Diet: low fat, low cholesterol, low salt Plan of Treatment: 1.Follow up with PCP in 1 week. 2.Follow up with [facility] on 02/03/19. 3.No strenous activity until cleared by Physician Assessment: 1.Unstable angina Follow up with: EMIL BRUNNER [Other] - 7 Days Forms: AMA Form Prescriptions: Carvedilol [Coreg] 3.125 mg PO BID #60 tablet ISOSORBIDE MONOnitrate [Imdur ER] 30 mg PO QDAY #30 tablet Lisinopril [Zestril TAB] 5 mg PO QDAY #30 tablet
== END 2019-01-29 12:30 | disposition home or self-care (01) ==
LOC: ED 20:09 → 4A 22:26
PROVIDERS: ADMIT Internal Medicine; ATTEND Internal Medicine
DX: R07.89 Other chest pain (principal); I13.0 Hypertensive heart and chronic kidney disease with heart failure and stage 1 through stage 4 chronic kidney disease, or unspecified chronic kidney disease; I50.9 Heart failure, unspecified; N18.9 Chronic kidney disease, unspecified; R56.9 Unspecified convulsions; I25.10 Atherosclerotic heart disease of native coronary artery without angina pectoris; F31.9 Bipolar disorder, unspecified; E78.5 Hyperlipidemia, unspecified; Z95.1 Presence of aortocoronary bypass graft; Z79.82 Long term (current) use of aspirin; Z87.891 Personal history of nicotine dependence
CPT/HCPCS: 36415; 71045; 80048; 82550; 82553; 84484; 85007; 85025; 93005; 93010; 96372; 99291; A9270; G0378; J1650; J7030

== ENCOUNTER 2019-02-10 02:15 | Observation (INO) | payer MEDICARE ==
--- NOTE | 2019-02-10 03:05 | Emergency Department Report ---
ED Chest Pain HPI - General Stated Complaint: CHEST PAIN Time Seen by Provider: 02/10/19 03:01 Source: patient, EMS - History of Present Illness Initial Comments: 53-year-old male with history of bipolar disorder, hypertension, CAD presents to ED from [facility] with complaint of chest pain. Patient states pain began a few hours ago. States pain is substernal, unable to characterize the pain. Reports associated nausea and mild shortness of breath. Patient had a LAD stent placed 2 weeks ago at this facility. Patient presented to [facility] for suicidal ideations, patient has no plan. States he is depressed because he has no money and has been homeless for the last 4 months. Patient reports tobacco use, denies drugs and alcohol. MD Complaint: chest pain -: hour(s) (3) Onset: during rest Pain Location: substernal Pain Radiation: none Severity: moderate Quality: other (unable to characterize) Consistency: intermittent Improves With: nothing Worsens With: nothing re: nausea, dyspnea. denies: vomting Other Symptoms: cough - Related Data Home Medications Medication Instructions Recorded Confirmed Last Taken Quetiapine Fumarate [Seroquel] 400 mg PO QHS 01/24/19 01/23/19 Unknown Previous Rx's Medication Instructions Recorded Last Taken Type Lansoprazole [Prevacid] 15 mg PO BID #30 cap 06/05/18 Unknown Rx Aspirin EC [Halfprin EC] 81 mg PO QDAY #30 tablet.dr 01/27/19 Unknown Rx AtorvaSTATin [Lipitor] 40 mg PO QHS #30 tablet 01/27/19 Unknown Rx Clopidogrel [Plavix] 75 mg PO QDAY #30 tablet 01/27/19 Unknown Rx Furosemide [Lasix TAB] 20 mg PO QDAY #30 tablet 01/27/19 Unknown Rx Carvedilol [Coreg] 3.125 mg PO BID #60 tablet 01/29/19 Unknown Rx ISOSORBIDE MONOnitrate [Imdur ER] 30 mg PO QDAY #30 tablet 01/29/19 Unknown Rx Lisinopril [Zestril TAB] 5 mg PO QDAY #30 tablet 01/29/19 Unknown Rx Allergies Allergy/AdvReac Type Severity Reaction Status Date / Time chlorpromazine Allergy Seizure Verified 04/18/17 15:47 [From Thorazine] phenobarbital Allergy Seizure Verified 04/18/17 15:47 phenytoin [From Dilantin] Allergy Seizure Verified 04/18/17 15:47 Heart Score - HEART Score History: Slightly suspicious EKG: Normal Age: 45-65 Risk factors: > 3 risk factors or hx of atherosclerotic disease Troponin: < normal limit HEART Score: 3 - Critical Actions Critical Actions: 0-3 pts:0.9-1.7%risk of adverse cardiac event.Candidate for discharge ED Review of Systems ROS: Stated complaint: CHEST PAIN Other details as noted in HPI Comment: All other systems reviewed and negative Respiratory: cough, shortness of breath Cardiovascular: chest pain Gastrointestinal: nausea. denies: vomiting Psychiatric: depression, suicidal thoughts. 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) Hx Congestive Heart Failure: Yes Hx Diabetes: No Hx Deep Vein Thrombosis: No Hx Pulmonary Embolism: No Hx GERD: No Hx Liver Disease: No Hx Renal Disease: No Hx Sickle Cell Disease: No Hx Arthritis: No Hx Headaches / Migraines: No Hx Seizures: Yes Hx Kidney Stones: No Hx Psychiatric Treatment: Yes (BIPOLAR AND ANXIETY) Hx Asthma: No Hx COPD: No Hx Tuberculosis: No Hx Dementia: No Hx HIV: No Additional medical history: Sleep Apnea,facial droop r/t jaw surgery 11/2017, PVC'S - Surgical History Hx Coronary Stent: No Hx Open Heart Surgery: No Hx Pacemaker: No Hx Internal Defibrillator: No Hx Cholecystectomy: No Hx Appendectomy: No Hx Breast Surgery: No Additional Surgical History: Lower Back, jaw 2017. Right Hip - Social History Smoking Status: Never Smoker - Medications Home Medications: Home Medications Medication Instructions Recorded Confirmed Last Taken Type Lansoprazole [Prevacid] 15 mg PO BID #30 cap 06/05/18 01/23/19 Unknown Rx Quetiapine Fumarate [Seroquel] 400 mg PO QHS 01/24/19 01/23/19 Unknown History Aspirin EC [Halfprin EC] 81 mg PO QDAY #30 tablet. 01/27/19 Unknown Rx AtorvaSTATin [Lipitor] 40 mg PO QHS #30 tablet 01/27/19 Unknown Rx Clopidogrel [Plavix] 75 mg PO QDAY #30 tablet 01/27/19 Unknown Rx Furosemide [Lasix TAB] 20 mg PO QDAY #30 tablet 01/27/19 Unknown Rx Carvedilol [Coreg] 3.125 mg PO BID #60 tablet 01/29/19 Unknown Rx ISOSORBIDE MONOnitrate [Imdur ER] 30 mg PO QDAY #30 tablet 01/29/19 Unknown Rx Lisinopril [Zestril TAB] 5 mg PO QDAY #30 tablet 01/29/19 Unknown Rx ED Physical Exam - General General appearance: alert, in no apparent distress, other (appears unkempt) - Head Head exam: Present: atraumatic, normocephalic - Eye Eye exam: Present: normal appearance, PERRL, EOMI - ENT ENT exam: Present: mucous membranes moist - Neck Neck exam: Present: normal inspection - Respiratory Respiratory exam: Present: normal lung sounds bilaterally. Absent: respiratory distress - Cardiovascular Cardiovascular Exam: Present: regular rate, normal rhythm - GI/Abdominal GI/Abdominal exam: Present: soft. Absent: distended, tenderness - Extremities Exam Extremities exam: Present: normal inspection. Absent: pedal edema, calf te nderness - Neurological Exam Neurological exam: Present: alert, oriented X3 - Psychiatric Psychiatric exam: Present: normal affect, normal mood - Skin Skin exam: Present: warm, dry, intact, normal color ED Course Vital Signs 02/10/19 02/10/19 02/10/19 02:30 03:06 03:11 Temperature 98.6 F Pulse Rate 58 L 59 L Respiratory 17 22 Rate Blood Pressure 104/77 [Left] O2 Sat by Pulse 96 97 Oximetry 02/10/19 02/10/19 03:15 04:06 Temperature Pulse Rate 60 58 L Respiratory 19 22 Rate Blood Pressure 123/81 [Left] O2 Sat by Pulse 97 Oximetry SHILOH score - Shiloh Score Age > 65: (0) No Aspirin use within the Past 7 Days: (1) Yes 3 or more CAD Risk Factors: (1) Yes 2 or more Angina events in past 24 hrs: (1) Yes Known CAD with more than 50% Stenosis: (1) Yes Elevated Cardiac Markers: (1) Yes ST Deviation Greater than 0.5mm: (0) No SHILOH Score: 5 ED Medical Decision Making - Lab Data Result diagrams: 02/10/19 03:54 02/10/19 03:54 - Radiology Data Radiology results: report reviewed, image reviewed - Medical Decision Making 53 yo M w/ recent LAD stent placement 2 weeks ago, presents to ED w/ chest pain onset 2-3 hours ago. Vitals, EKG, troponin normal at this time. Pt appears comfortable. Due to cardiac history and recent procedure, will admit to hospitalist, Dr Perea, for further management. - Differential Diagnosis ACS, pulm edema, pneumonia Critical care attestation.: If time is entered above; I have spent that time in minutes in the direct care of this critically ill patient, excluding procedure time. ED Disposition Clinical Impression: Acute chest pain, Hypokalemia Disposition: OP ADMIT IP TO THIS HOSP Is pt being admited?: Yes Condition: Stable Instructions: Chest Pain (ED) Referrals: MONTANA DE LEON MD [Primary Care Provider] - 3-5 Days Time of Disposition: 04:34
[2019-02-10] MEDS ORDERED: ASPIRIN PO ONE (03:30)
--- NOTE | 2019-02-10 04:05 | XRay Report ---
CHEST 1 VIEW [id number] INDICATION / CLINICAL INFORMATION: Chest Pain. COMPARISON: 01/27/2019 FINDINGS: SUPPORT DEVICES: None HEART / MEDIASTINUM: No significant abnormality. LUNGS / PLEURA: Mild increase in interstitial markings is again seen. No areas of consolidation are n oted. No pneumothorax. ADDITIONAL FINDINGS: No significant additional findings. IMPRESSION: No significant acute abnormality Signer Name: Andres Cameron MD Signed: 02/10/2019 4:00 AM Workstation Name: [id number]
[2019-02-10 04:06] LABS: Basophils # (Auto) 0.1 K/mm3 (0.0-0.1); Basophils % (Auto) 1.3 % (0.0-1.8); Eosinophils # (Auto) 0.9 K/mm3 (0.0-0.4); Eosinophils % (Auto) 10.8 % (0.0-4.3); Hematocrit 38.6 % (35.5-45.6); Hemoglobin 13.6 gm/dl (11.8-15.2); Lymphocytes # (Auto) 2.8 K/mm3 (1.2-5.4); Lymphocytes % (Auto) 34.4 % (13.4-35.0); Mean Corpuscular HGB Conc 35 % (32-34); Mean Corpuscular Volume 93 fl (84-94); Monocytes # (Auto) 0.6 K/mm3 (0.0-0.8); Monocytes % (Auto) 7.6 % (0.0-7.3); Platelet Count 203 K/mm3 (140-440); Red Blood Count 4.17 M/mm3 (3.65-5.03); Red Cell Distribution Width 13.8 % (13.2-15.2)
[2019-02-10 04:28] LABS: BUN/Creatinine Ratio 18; Blood Urea Nitrogen 18 mg/dL (9-20); Calcium 8.6 mg/dL (8.4-10.2); Hemolysis Index 8
[2019-02-10] MEDS ORDERED: K-DUR PO ONE (04:32)
[2019-02-10] MEDS ORDERED: SODIUM CHLORIDE FLUSH SYRINGE 10 ML IV PRN ×2 (04:59)
[2019-02-10] MEDS ORDERED: PERCOCET 5/325 PO PRN (04:59)
[2019-02-10] MEDS ORDERED: ZOFRAN IV PRN (04:59)
[2019-02-10] MEDS ORDERED: TYLENOL PO PRN (04:59)
--- NOTE | 2019-02-10 05:10 | History and Physical Report ---
History of Present Illness Date of examination: 02/10/19 Date of admission: 02/10/2019 Chief complaint: Chest Pain History of present illness: 53-year-old male who is a resident at [facility] with history of bipolar disorder, depression, anxiety, coronary artery disease, hypertension s/p stent, CHF, and hyperlipidemia who presents to [facility] ED with c/o substernal non-radiating chest pain. Pt states that having intermittent chest pain for the past few weeks. This particular episode of chest pain began a few hours ago. He is unable to describe the pain but admits that he's had intermittent chest pain , since undergoing LHC with stent placed in LAD approximately 2 weeks ago. Pt states that his chest pain was accompanied by nausea and mild dyspnea with exertion. He denies emesis. Pt also c/o of depression d/t homelessness and lack of funds. Pt states that he has suicidal ideation, but when asked about his plan he states that he doesn't have one. Past History Past Medical History: CAD, GERD, heart failure, hypertension, hyperlipidemia, stroke (rt arm weakness), other (anxiety, bipolar; Sleep Apnea; facial droop r/t jaw surgery 11/2017; PVC'S) Past Surgical History: Other (s/p stent LAD 12/2018; Lower Back, jaw 2017; Right Hip) Social history: other (resident at [facility]) Family history: no significant family history Medications and Allergies Allergies Allergy/AdvReac Type Severity Reaction Status Date / Time chlorpromazine Allergy Seizure Verified 04/18/17 15:47 [From Thorazine] phenobarbital Allergy Seizure Verified 04/18/17 15:47 phenytoin [From Dilantin] Allergy Seizure Verified 04/18/17 15:47 Home Medications Medication Instructions Recorded Confirmed Last Taken Type Lansoprazole [Prevacid] 15 mg PO BID #30 cap 06/05/18 01/23/19 Unknown Rx Quetiapine Fumarate [Seroquel] 400 mg PO QHS 01/24/19 01/23/19 Unknown History Aspirin EC [Halfprin EC] 81 mg PO QDAY #30 tablet. 01/27/19 Unknown Rx AtorvaSTATin [Lipitor] 40 mg PO QHS #30 tablet 01/27/19 Unknown Rx Clopidogrel [Plavix] 75 mg PO QDAY #30 tablet 01/27/19 Unknown Rx Furosemide [Lasix TAB] 20 mg PO QDAY #30 tablet 01/27/19 Unknown Rx Carvedilol [Coreg] 3.125 mg PO BID #60 tablet 01/29/19 Unknown Rx ISOSORBIDE MONOnitrate [Imdur ER] 30 mg PO QDAY #30 tablet 01/29/19 Unknown Rx Lisinopril [Zestril TAB] 5 mg PO QDAY #30 tablet 01/29/19 Unknown Rx Active Meds: Active Medications Acetaminophen (Tylenol) 650 mg PO Q4H PRN PRN Reason: Pain MILD(1-3)/Fever >100.5/CEJA Aspirin (Halfprin Ec) 81 mg PO QDAY SONJA Atorvastatin Calcium (Lipitor) 40 mg PO QHS SONJA Carvedilol (Coreg) 3.125 mg PO BID SONJA Clopidogrel Bisulfate (Plavix) 75 mg PO QDAY SONJA Docusate Sodium (Colace) 100 mg PO BID SONJA Enoxaparin Sodium (Lovenox) 40 mg SUB-Q QDAY SONJA Furosemide (Lasix) 20 mg PO QDAY SONJA Hydromorphone HCl (Dilaudid) 0.5 mg IV Q3H PRN PRN Reason: Pain , Severe (7-10) Isosorbide Mononitrate (Imdur) 30 mg PO QDAY SONJA Lisinopril (Zestril) 5 mg PO QDAY [facility] Miscellaneous Medication (Lansoprazole [Prevacid]) 15 mg PO BID SONJA Ondansetron HCl (Zofran) 4 mg IV Q8H PRN PRN Reason: Nausea And Vomiting Oxycodone/Acetaminophen (Percocet 5/325) 1 tab PO Q6H PRN PRN Reason: Pain, Moderate (4-6) Sodium Chloride (Sodium Chloride Flush Syringe 10 Ml) 10 ml IV BID SONJA Sodium Chloride (Sodium Chloride Flush Syringe 10 Ml) 10 ml IV PRN PRN PRN Reason: LINE FLUSH Sodium Chloride (Sodium Chloride Flush Syringe 10 Ml) 10 ml IV PRN PRN PRN Reason: LINE FLUSH Review of Systems All systems: negative Cardiovascular: chest pain, shortness of breath Respiratory: cough, shortness of breath Psychiatric: suicidal ideation, depression Exam - Physical Exam Narrative exam: Physical exam General appearance: Present: No acute distress, alert and oriented 3, well- developed, well-nourished, adult male - EENT Eyes: Present: PERRL, EOM intact, abrasion/ bruising to the right thigh ENT: hearing intact, missing teeth - Neck Neck: Present: supple, normal ROM - Respiratory Respiratory effort: Non-labored Respiratory: CTA bilaterally - Cardiovascular Heart rate: 60(bpm) Rhythm: SR Heart Sounds: Present: S1 & S2. Absent: rub, click - Extremities Extremities: no ischemia, pulses intact, - Peripheral Assessment Peripheral Pulses: within normal limits - Abdominal General gastrointestinal: soft, non-tender, normal bowel sounds - Integumentary Integumentary: Present: warm, dry, - Musculoskeletal Musculoskeletal: able to move all extremities -Neurological Neurological: CN II-XII grossly intact - Psychiatric Psychiatric: cooperative - Constitutional Vitals: Temp Pulse Resp BP Pulse Ox 98.6 F 58 L 22 123/81 97 02/10/19 02:30 02/10/19 04:06 02/10/19 04:06 02/10/19 04:06 02/10/19 04:06 Results - Labs CBC & Chem 7: 02/10/19 03:54 02/10/19 03:54 Labs: Laboratory Last Values WBC 8.2 K/mm3 (4.5-11.0) 02/10/19 03:54 RBC 4.17 M/mm3 (3.65-5.03) 02/10/19 03:54 Hgb 13.6 gm/dl (11.8-15.2) 02/10/19 03:54 Hct 38.6 % (35.5-45.6) 02/10/19 03:54 MCV 93 fl (84-94) 02/10/19 03:54 MCH 33 pg (28-32) H 02/10/19 03:54 MCHC 35 % (32-34) H 02/10/19 03:54 RDW 13.8 % (13.2-15.2) 02/10/19 03:54 Plt Count 203 K/mm3 (140-440) 02/10/19 03:54 Lymph % (Auto) 34.4 % (13.4-35.0) 02/10/19 03:54 [place] % (Auto) 7.6 % (0.0-7.3) H 02/10/19 03:54 Eos % (Auto) 10.8 % (0.0-4.3) H 02/10/19 03:54 Baso % (Auto) 1.3 % (0.0-1.8) 02/10/19 03:54 Lymph # 2.8 K/mm3 (1.2-5.4) 02/10/19 03:54 [place] # 0.6 K/mm3 (0.0-0.8) 02/10/19 03:54 Eos # 0.9 K/mm3 (0.0-0.4) H 02/10/19 03:54 Baso # 0.1 K/mm3 (0.0-0.1) 02/10/19 03:54 Seg Neutrophils % 45.9 % (40.0-70.0) 02/10/19 03:54 Seg Neutrophils # 3.8 K/mm3 (1.8-7.7) 02/10/19 03:54 Sodium 142 mmol/L (137-145) 02/10/19 03:54 Potassium 3.1 mmol/L (3.6-5.0) L 02/10/19 03:54 Chloride 105.9 mmol/L (98-107) 02/10/19 03:54 Carbon Dioxide 23 mmol/L (22-30) 02/10/19 03:54 16 mmol/L 02/10/19 03:54 BUN 18 mg/dL (9-20) 02/10/19 03:54 1.0 mg/dL (0.8-1.5) 02/10/19 03:54 Estimated GFR > 60 ml/min 02/10/19 03:54 18 % 02/10/19 03:54 Glucose 87 mg/dL (75-100) 02/10/19 03:54 Calcium 8.6 mg/dL (8.4-10.2) 02/10/19 03:54 < 0.010 ng/mL (0.00-0.029) 02/10/19 03:54 - Imaging and Cardiology Imaging and Cardiology: CXR: FINDINGS: SUPPORT DEVICES: None HEART / MEDIASTINUM: No significant abnormality. LUNGS / PLEURA: Mild increase in interstitial markings is again seen. No areas of consolidation are noted. No pneumothorax. ADDITIONAL FINDINGS: No significant additional findings. IMPRESSION: No significant acute abnormality Assessment and Plan Assessment and plan: 53-year-old male who is a resident at [facility] with history of bipolar disorder, depression, anxiety, coronary artery disease, hypertension s/p stent, CHF, and hyperlipidemia who presents to [facility] ED with c/o substernal non-radiating chest pain. Acute atypical Chest Pain -Initiate chest pain protocol -Continuous telemetry monitoring -Continue supportive care -Pain mgmt -Ischemic cardiomyopathy with EF 30-35% seen on [facility] 12/2018 -S/P LAD stent 12/2018 -Troponin negative x 1, will continue to trend -Cardiology Consulted Hypokalemia -3.1 on admission -Repleted -Continue to monitor electrolytes, replete prn Coronary artery disease -Continue aspirin, Plavix, statin Hypertension -Continue to monitor BP -Resume home antihypertensive meds to optimize BP Suicidal ideation -Voluntary Admission to [facility] -Mental Health consult pending Tobacco Abuse -Current every day smokes -Counseled for cessation -Nicotine patch PRN History of Bipolar disorder History of Depression History of anxiety DVT PPX -on Lovenox Advance Directives: No VTE prophylaxis?: Chemical Plan of care discussed with patient/family: Yes
[2019-02-10 08:27] VITALS: BP 133/90
[2019-02-10] MEDS: DILAUDID IV PRN ×2 (08:32→13:50)
[2019-02-10] MEDS ORDERED: HABITROL TD SCH (10:00)
[2019-02-10] MEDS ORDERED: SODIUM CHLORIDE FLUSH SYRINGE 10 ML IV SCH (10:00)
[2019-02-10] MEDS ORDERED: HALFPRIN EC PO SCH (10:00)
[2019-02-10] MEDS ORDERED: PROTONIX PO SCH (10:00)
[2019-02-10] MEDS ORDERED: ZESTRIL PO SCH (10:00)
[2019-02-10] MEDS ORDERED: IMDUR PO SCH (10:00)
[2019-02-10] MEDS ORDERED: COREG PO SCH (10:00)
[2019-02-10] MEDS ORDERED: LOVENOX SUB-Q SCH (10:00)
[2019-02-10] MEDS ORDERED: COLACE PO SCH (10:00)
[2019-02-10] MEDS ORDERED: PLAVIX PO SCH (10:00)
[2019-02-10] MEDS ORDERED: LASIX PO SCH (10:00)
--- NOTE | 2019-02-10 11:52 | Event Note ---
Date: 02/10/19
--- NOTE | 2019-02-10 12:22 | Discharge Summary ---
Providers - Providers Date of Admission: 02/10/19 06:38 Date of discharge: 02/10/19 Attending physician: DIETER SIDDIQI 02/10/19 04:56 Consult to Physician [CONS] Routine Comment: Consulting Provider: REGGIE SOTO Physician Instructions: Reason For Exam: chest pain , s/p stent LAD est pt 02/10/19 04:58 Consult to Mental Health [CONS] Routine Reason For Exam: hx bipolar & anxiety Place consult to:: Mental Health Notified:: Bradford RN Phone number called:: [phone] Was contact made?: Yes If yes, spoke with:: [facility] Time called:: 08:53 02/10/19 04:59 Consult to Case Management [CONS] Routine 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:: case management Primary care physician: [facility] MD JOAQUIN Hospitalization Condition: Stable Disposition: [id number]/TX-65 PSY HOSP/PSY UNIT Time spent for discharge: 32 min Core Measure Documentation - Palliative Care Palliative Care/ Comfort Measures: Not Applicable - Core Measures Any of the following diagnoses?: none Exam - Constitutional Vitals: Temp Pulse Resp BP Pulse Ox 97.8 F 64 18 133/90 98 02/10/19 08:26 02/10/19 08:26 02/10/19 08:26 02/10/19 08:26 02/10/19 08:26 General appearance: Present: no acute distress, well-nourished - EENT Eyes: Present: PERRL, EOM intact - Neck Neck: Present: supple, normal ROM - Respiratory Respiratory effort: normal Respiratory: bilateral: diminished, negative: rales, rhonchi, wheezing - Cardiovascular Rhythm: regular Heart Sounds: Present: S1 & S2 - Extremities Extremities: no ischemia, No edema - Abdominal General gastrointestinal: Present: soft, non-tender, non-distended, normal bowel sounds - Integumentary Integumentary: Present: clear, warm - Musculoskeletal Musculoskeletal: strength equal bilaterally - Psychiatric Psychiatric: appropriate mood/affect, cooperative - Neurologic Neurologic: CNII-XII intact, moves all extremities Plan Activity: no restrictions Diet: other (cardiac diet) Additional Instructions: Advised to go to [place] for further management Follow up with: [facility] [Outside] - 7 Days [place] DE LEON MD [Primary Care Provider] - 3-5 Days REGGIE SOTO MD [Staff Physician] - 7 Days Forms: AMA Form Prescriptions: Nicotine [Habitrol] 14 mg TD QDAY #30 patch Ranolazine ER [Ranexa ER] 500 mg PO BID #60 tablet
--- NOTE | 2019-02-10 12:39 | Consultation ---
<ROBIN LACEY - Last Filed: 02/10/19 12:39> History of Present Illness Consult date: 02/10/19 Consult reason: chest pain History of present illness: Patient is a 53-year-old man with coronary artery disease, who underwent coronary stent placement to the LAD one month ago, with a 5.0 mm bare-metal stent. Diffuse moderate to severe disease of a small nondominant right coronary was recommended for medical therapy. There was a moderately severe ischemic cardiomyopathy with ejection fraction 30-35%. Patient returns and admitted with atypical chest pain. In addition, patient reports social issues and is homeless. ECG was normal sinus rhythm. No ST or T- wave abnormalities. Cycled troponin levels are normal. Cardiac consultation was requested for further evaluation. Past History Past Medical History: CAD, GERD, heart failure, hypertension, hyperlipidemia, other (anxiety, bipolar; Sleep Apnea; facial droop r/t jaw surgery 11/2017; PVC'S) Past Surgical History: Other (s/p stent LAD 12/2018; Lower Back, jaw 2017; Right Hip) Social history: other (resident at [place]) Family history: no significant family history Medications and Allergies Allergies Allergy/AdvReac Type Severity Reaction Status Date / Time chlorpromazine Allergy Seizure Verified 04/18/17 15:47 [From Thorazine] phenobarbital Allergy Seizure Verified 04/18/17 15:47 phenytoin [From Dilantin] Allergy Seizure Verified 04/18/17 15:47 Home Medications Medication Instructions Recorded Confirmed Last Taken Type Lansoprazole [Prevacid] 15 mg PO BID #30 cap 06/05/18 02/10/19 Unknown Rx Quetiapine Fumarate [Seroquel] 400 mg PO QHS 01/24/19 02/10/19 Unknown History Aspirin EC [Halfprin EC] 81 mg PO QDAY #30 tablet. 01/27/19 02/10/19 Unknown Rx AtorvaSTATin [Lipitor] 40 mg PO QHS #30 tablet 01/27/19 02/10/19 Unknown Rx Clopidogrel [Plavix] 75 mg PO QDAY #30 tablet 01/27/19 02/10/19 Unknown Rx Furosemide [Lasix TAB] 20 mg PO QDAY #30 tablet 01/27/19 02/10/19 Unknown Rx Carvedilol [Coreg] 3.125 mg PO BID #60 tablet 01/29/19 02/10/19 Unknown Rx ISOSORBIDE MONOnitrate [Imdur ER] 30 mg PO QDAY #30 tablet 01/29/19 02/10/19 Unknown Rx Lisinopril [Zestril TAB] 5 mg PO QDAY #30 tablet 01/29/19 02/10/19 Unknown Rx Nicotine [Habitrol] 14 mg TD QDAY #30 patch 02/10/19 Unknown Rx Ranolazine ER [Ranexa ER] 500 mg PO BID #60 tablet 02/10/19 Unknown Rx Active Meds: Active Medications Acetaminophen (Tylenol) 650 mg PO Q4H PRN PRN Reason: Pain MILD(1-3)/Fever >100.5/CEJA Aspirin (Halfprin Ec) 81 mg PO QDAY [facility] Last Admin: 02/10/19 11:30 Dose: Not Given Documented by: Atorvastatin Calcium (Lipitor) 40 mg PO QHS [facility] Carvedilol (Coreg) 3.125 mg PO BID [facility] Last Admin: 02/10/19 11:30 Dose: Not Given Documented by: Clopidogrel Bisulfate (Plavix) 75 mg PO QDAY [facility] Last Admin: 02/10/19 11:30 Dose: Not Given Documented by: Docusate Sodium (Colace) 100 mg PO BID [facility] Last Admin: 02/10/19 11:28 Dose: Not Given Documented by: Enoxaparin Sodium (Lovenox) 40 mg SUB-Q QDAY [facility] Last Admin: 02/10/19 11:30 Dose: Not Given Documented by: Furosemide (Lasix) 20 mg PO QDAY [facility] Last Admin: 02/10/19 11:30 Dose: Not Given Documented by: Hydromorphone HCl (Dilaudid) 0.5 mg IV Q3H PRN PRN Reason: Pain , Severe (7-10) Last Admin: 02/10/19 08:32 Dose: 0.5 mg Documented by: Isosorbide Mononitrate (Imdur) 30 mg PO QDAY [facility] Last Admin: 02/10/19 11:30 Dose: Not Given Documented by: Lisinopril (Zestril) 5 mg PO QDAY [facility] Last Admin: 02/10/19 11:31 Dose: Not Given Documented by: Nicotine (Habitrol) 14 mg TD QDAY [facility] Last Admin: 02/10/19 11:30 Dose: Not Given Documented by: Ondansetron HCl (Zofran) 4 mg IV Q8H PRN PRN Reason: Nausea And Vomiting Oxycodone/Acetaminophen (Percocet 5/325) 1 tab PO Q6H PRN PRN Reason: Pain, Moderate (4-6) Pantoprazole Sodium (Protonix) 20 mg PO BID [facility] Last Admin: 02/10/19 11:30 Dose: Not Given Documented by: Ranolazine (Ranexa Er) 500 mg PO BID [facility] Sodium Chloride (Sodium Chloride Flush Syringe 10 Ml) 10 ml IV BID [facility] Last Admin: 02/10/19 11:31 Dose: Not Given Documented by: Sodium Chloride (Sodium Chloride Flush Syringe 10 Ml) 10 ml IV PRN PRN PRN Reason: LINE FLUSH Physical Examination Vital Signs Temp Pulse Resp BP Pulse Ox 98.6 F 58 L 17 104/77 96 02/10/19 02:30 02/10/19 02:30 02/10/19 02:30 02/10/19 02:30 02/10/19 02:30 General appearance: no acute distress HEENT: Positive: PERRL Neck: Positive: trachea midline Cardiac: Positive: Reg Rate and Rhythm Lungs: Positive: Decreased Breath Sounds Neuro: Positive: Grossly Intact Results 02/10/19 03:54 02/10/19 03:54 CBC 02/10/19 Range/Units 03:54 WBC 8.2 (4.5-11.0) K/mm3 RBC 4.17 (3.65-5.03) M/mm3 Hgb 13.6 (11.8-15.2) gm/dl Hct 38.6 (35.5-45.6) % Plt Count 203 (140-440) K/mm3 Lymph # 2.8 (1.2-5.4) K/mm3 [place] # 0.6 (0.0-0.8) K/mm3 Eos # 0.9 H (0.0-0.4) K/mm3 Baso # 0.1 (0.0-0.1) K/mm3 Comprehensive Metabolic Panel 02/10/19 Range/Units 03:54 Sodium 142 (137-145) mmol/L Potassium 3.1 L (3.6-5.0) mmol/L Chloride 105.9 (98-107) mmol/L Carbon Dioxide 23 (22-30) mmol/L BUN 18 (9-20) mg/dL Creatinine 1.0 (0.8-1.5) mg/dL Glucose 87 (75-100) mg/dL Calcium 8.6 (8.4-10.2) mg/dL Assessment and Plan Chest pain, atypical ECG was normal sinus rhythm, with no ST or T-wave abnormalities. Troponin are normal Hx of coronary artery disease s/p coronary stent placement to the LAD 12/2018, with a 5.0 mm bare-metal stent. Ischemic cardiomyopathy ejection fraction 30-35%. Hypertension No further ischemic workup is indicated. Continue medical therapy for coronary artery disease including dual antiplatelet therapy. In addition, we will add ranexa 500mg twice a day for small vessel coronary disease. <RONNIE UP - Last Filed: 02/10/19 13:43> Medications and Allergies Active Meds: Active Medications Acetaminophen (Tylenol) 650 mg PO Q4H PRN PRN Reason: Pain MILD(1-3)/Fever >100.5/CEJA Aspirin (Halfprin Ec) 81 mg PO QDAY [facility] Last Admin: 02/10/19 11:30 Dose: Not Given Documented by: Atorvastatin Calcium (Lipitor) 40 mg PO QHS [facility] Carvedilol (Coreg) 3.125 mg PO BID [facility] Last Admin: 02/10/19 11:30 Dose: Not Given Documented by: Clopidogrel Bisulfate (Plavix) 75 mg PO QDAY [facility] Last Admin: 02/10/19 11:30 Dose: Not Given Documented by: Docusate Sodium (Colace) 100 mg PO BID [facility] Last Admin: 02/10/19 11:28 Dose: Not Given Documented by: Enoxaparin Sodium (Lovenox) 40 mg SUB-Q QDAY [facility] Last Admin: 02/10/19 11:30 Dose: Not Given Documented by: Furosemide (Lasix) 20 mg PO QDAY [facility] Last Admin: 02/10/19 11:30 Dose: Not Given Documented by: Hydromorphone HCl (Dilaudid) 0.5 mg IV Q3H PRN PRN Reason: Pain , Severe (7-10) Last Admin: 02/10/19 08:32 Dose: 0.5 mg Documented by: Isosorbide Mononitrate (Imdur) 30 mg PO QDAY [facility] Last Admin: 02/10/19 11:30 Dose: Not Given Documented by: Lisinopril (Zestril) 5 mg PO QDAY [facility] Last Admin: 02/10/19 11:31 Dose: Not Given Documented by: Nicotine (Habitrol) 14 mg TD QDAY [facility] Last Admin: 02/10/19 11:30 Dose: Not Given Documented by: Ondansetron HCl (Zofran) 4 mg IV Q8H PRN PRN Reason: Nausea And Vomiting Oxycodone/Acetaminophen (Percocet 5/325) 1 tab PO Q6H PRN PRN Reason: Pain, Moderate (4-6) Pantoprazole Sodium (Protonix) 20 mg PO BID [facility] Last Admin: 02/10/19 11:30 Dose: Not Given Documented by: Ranolazine (Ranexa Er) 500 mg PO BID [facility] Sodium Chloride (Sodium Chloride Flush Syringe 10 Ml) 10 ml IV BID [facility] Last Admin: 02/10/19 11:31 Dose: Not Given Documented by: Sodium Chloride (Sodium Chloride Flush Syringe 10 Ml) 10 ml IV PRN PRN PRN Reason: LINE FLUSH Physical Examination Vital Signs Temp Pulse Resp BP Pulse Ox 98.6 F 58 L 17 104/77 96 02/10/19 02:30 02/10/19 02:30 02/10/19 02:30 02/10/19 02:30 02/10/19 02:30 Results 02/10/19 03:54 02/10/19 03:54 CBC 02/10/19 Range/Units 03:54 WBC 8.2 (4.5-11.0) K/mm3 RBC 4.17 (3.65-5.03) M/mm3 Hgb 13.6 (11.8-15.2) gm/dl Hct 38.6 (35.5-45.6) % Plt Count 203 (140-440) K/mm3 Lymph # 2.8 (1.2-5.4) K/mm3 [place] # 0.6 (0.0-0.8) K/mm3 Eos # 0.9 H (0.0-0.4) K/mm3 Baso # 0.1 (0.0-0.1) K/mm3 Comprehensive Metabolic Panel 02/10/19 Range/Units 03:54 Sodium 142 (137-145) mmol/L Potassium 3.1 L (3.6-5.0) mmol/L Chloride 105.9 (98-107) mmol/L Carbon Dioxide 23 (22-30) mmol/L BUN 18 (9-20) mg/dL Creatinine 1.0 (0.8-1.5) mg/dL Glucose 87 (75-100) mg/dL Calcium 8.6 (8.4-10.2) mg/dL Assessment and Plan I have seen and evaluated the patient and agree with the assessment and plan. Patient had a recent cardiac cath with placement of a bare metal stent. Patient comes to the hospital with recurrent chest pain. Notably patient is not taking any of his medications due to cost. Troponins are negative. Continue to follow. EKG shows sinus rhythm with nonspeciifc STTW changes. No invasive management required at this time. Recommend patient be restarted on goal directed medical therapy. criminal justice social worker to help with medications funding.
[2019-02-10] MEDS ORDERED: RANEXA ER PO SCH (22:00)
== END 2019-02-10 19:30 ==
LOC: ED 02:15 → 4A 06:38
PROVIDERS: ADMIT Internal Medicine; ATTEND Internal Medicine
DX: R07.89 Other chest pain (principal); E87.6 Hypokalemia; I25.10 Atherosclerotic heart disease of native coronary artery without angina pectoris; I11.0 Hypertensive heart disease with heart failure; I50.9 Heart failure, unspecified; R45.851 Suicidal ideations; F17.210 Nicotine dependence, cigarettes, uncomplicated; F31.9 Bipolar disorder, unspecified; E78.5 Hyperlipidemia, unspecified; F41.9 Anxiety disorder, unspecified; K21.9 Gastro-esophageal reflux disease without esophagitis; G47.30 Sleep apnea, unspecified; Z95.1 Presence of aortocoronary bypass graft; Z86.73 Personal history of transient ischemic attack (TIA), and cerebral infarction without residual deficits; Z79.82 Long term (current) use of aspirin; Z79.02 Long term (current) use of antithrombotics/antiplatelets
CPT/HCPCS: 36415; 71045; 80048; 84484; 85025; 93005; 93010; 96374; 96376; 99284; G0378; J1170

== ENCOUNTER 2019-03-21 00:43 | Observation (INO) | payer MEDICARE ==
[2019-03-21] MEDS ORDERED: MORPHINE IV ONE (01:00)
[2019-03-21] MEDS ORDERED: NITROSTAT SL ONE (01:00)
--- NOTE | 2019-03-21 01:19 | Emergency Department Report ---
ED Chest Pain HPI - General Chief Complaint: Chest Pain Stated Complaint: CHEST PAIN Time Seen by Provider: 03/21/19 00:53 Source: patient, EMS Mode of arrival: Stretcher Limitations: No Limitations - History of Present Illness Initial Comments: 53-year-old male presents to the emergency department via EMS from home with complaint of some midsternal to left-sided chest pain that started about 30 minutes prior to presentation. It is associated with some shortness of breath. He denies any nausea, vomiting, back pain, fever or diaphoresis. He did not take anything for her symptoms prior to presentation and was given a baby aspirin in route. He is a tobacco smoker but denies any illicit drug use. He has a past medical history that includes coronary artery disease with previous IL, dilated cardiomyopathy, bipolar disorder, hypertension. The patient had a heart catheterization done here on 01/26/19 that showed 2 vessel disease and the patient had angioplasty and stenting of the mid LAD and was also found to have an EF of 30-35%. He has a primary care physician, Dr. Salcedo, but does not have a backhaul driver. No recent travel or sick contacts at home. Severity scale (0 -10): 7 - Related Data Home Medications Medication Instructions Recorded Confirmed Last Taken Quetiapine Fumarate [Seroquel] 400 mg PO QHS 01/24/19 03/21/19 Unknown Previous Rx's Medication Instructions Recorded Last Taken Type Lansoprazole [Prevacid] 15 mg PO BID #30 cap 06/05/18 Unknown Rx Aspirin EC [Halfprin EC] 81 mg PO QDAY #30 tablet. 01/27/19 Unknown Rx AtorvaSTATin [Lipitor] 40 mg PO QHS #30 tablet 01/27/19 Unknown Rx Clopidogrel [Plavix] 75 mg PO QDAY #30 tablet 01/27/19 Unknown Rx Furosemide [Lasix TAB] 20 mg PO QDAY #30 tablet 01/27/19 Unknown Rx Carvedilol [Coreg] 3.125 mg PO BID #60 tablet 01/29/19 Unknown Rx ISOSORBIDE MONOnitrate [Imdur ER] 30 mg PO QDAY #30 tablet 01/29/19 Unknown Rx Lisinopril [Zestril TAB] 5 mg PO QDAY #30 tablet 01/29/19 Unknown Rx Nicotine [Habitrol] 14 mg TD QDAY #30 patch 02/10/19 Unknown Rx Ranolazine ER [Ranexa ER] 500 mg PO BID #60 tablet 02/10/19 Unknown Rx Allergies Allergy/AdvReac Type Severity Reaction Status Date / Time chlorpromazine Allergy Seizure Verified 04/18/17 15:47 [From Thorazine] phenobarbital Allergy Seizure Verified 04/18/17 15:47 phenytoin [From Dilantin] Allergy Seizure Verified 04/18/17 15:47 Heart Score - HEART Score History: Moderately suspicious EKG: Non-specific Age: 45-65 Risk factors: > 3 risk factors or hx of atherosclerotic disease Troponin: < normal limit HEART Score: 5 - Critical Actions Critical Actions: 4-6 pts:12-16.6% risk of adverse cardiac event. Should be ad mitted ED Review of Systems ROS: Stated complaint: CHEST PAIN Other details as noted in HPI Comment: All other systems reviewed and negative Constitutional: denies: chills, fever Eyes: denies: eye pain, vision change ENT: denies: ear pain, throat pain Respiratory: shortness of breath. denies: cough Cardiovascular: chest pain. denies: palpitations Gastrointestinal: denies: abdominal pain, vomiting Genitourinary: denies: dysuria, discharge Musculoskeletal: denies: back pain, arthralgia Skin: denies: rash, lesions Neurological: denies: headache, weakness ED Past Medical Hx - Past Medical History Previous Medical History?: Yes Hx Hypertension: Yes Hx CVA: Yes (right arm weakness) Hx Heart Attack/AMI: Yes (PVC's) Hx Congestive Heart Failure: Yes Hx Diabetes: No Hx Deep Vein Thrombosis: No Hx Pulmonary Embolism: No Hx GERD: No Hx Liver Disease: No Hx Renal Disease: No Hx Sickle Cell Disease: No Hx Arthritis: No Hx Headaches / Migraines: No Hx Seizures: Yes Hx Kidney Stones: No Hx Psychiatric Treatment: Yes (BIPOLAR AND ANXIETY) Hx Asthma: No Hx COPD: No Hx Tuberculosis: No Hx Dementia: No Hx HIV: No Additional medical history: Sleep Apnea,facial droop r/t jaw surgery 11/2017, PVC'S - Surgical History Past Surgical History?: Yes Hx Coronary Stent: No Hx Open Heart Surgery: No Hx Pacemaker: No Hx Internal Defibrillator: No Hx Cholecystectomy: No Hx Appendectomy: No Hx Breast Surgery: No Additional Surgical History: Lower Back, jaw 2017. Right Hip, stent placed - Social History Smoking Status: Current Every Day Smoker Substance Use Type: None - Medications Home Medications: Home Medications Medication Instructions Recorded Confirmed Last Taken Type Lansoprazole [Prevacid] 15 mg PO BID #30 cap 06/05/18 03/21/19 Unknown Rx Quetiapine Fumarate [Seroquel] 400 mg PO QHS 01/24/19 03/21/19 Unknown History Aspirin EC [Halfprin EC] 81 mg PO QDAY #30 tablet. 01/27/19 03/21/19 Unknown Rx AtorvaSTATin [Lipitor] 40 mg PO QHS #30 tablet 01/27/19 03/21/19 Unknown Rx Clopidogrel [Plavix] 75 mg PO QDAY #30 tablet 01/27/19 03/21/19 Unknown Rx Furosemide [Lasix TAB] 20 mg PO QDAY #30 tablet 01/27/19 03/21/19 Unknown Rx Carvedilol [Coreg] 3.125 mg PO BID #60 tablet 01/29/19 03/21/19 Unknown Rx ISOSORBIDE MONOnitrate [Imdur ER] 30 mg PO QDAY #30 tablet 01/29/19 03/21/19 Unknown Rx Lisinopril [Zestril TAB] 5 mg PO QDAY #30 tablet 01/29/19 03/21/19 Unknown Rx Nicotine [Habitrol] 14 mg TD QDAY #30 patch 02/10/19 03/21/19 Unknown Rx Ranolazine ER [Ranexa ER] 500 mg PO BID #60 tablet 02/10/19 03/21/19 Unknown Rx ED Physical Exam - General Limitations: No Limitations - Other Other exam information: GENERAL: The patient is well-developed well-nourished. HENT: Normocephalic. Atraumatic. Patient has moist mucous membranes. EYES: Extraocular motions are intact. NECK: Supple. Trachea is midline. CHEST/LUNGS: Clear to auscultation. There is no respiratory distress noted. HEART/CARDIOVASCULAR: Regular. There is no tachycardia. There is no murmur. ABDOMEN: Abdomen is soft, nontender. Patient has normal bowel sounds. There is no abdominal distention. SKIN: Skin is warm and dry. NEURO: The patient is awake, alert, and oriented. The patient is cooperative. The patient has no focal neurologic deficits. Normal speech. MUSCULOSKELETAL: There is no tenderness or deformity. There is no evidence of acute injury. ED Course Vital Signs 03/21/19 03/21/19 03/21/19 00:52 00:58 01:01 Temperature 99 F Pulse Rate 100 H 96 H Respiratory 22 19 Rate Blood Pressure 166/91 161/91 O2 Sat by Pulse 97 97 96 Oximetry 03/21/19 03/21/19 03/21/19 01:11 01:31 02:00 Temperature Pulse Rate 100 H 93 H 81 Respiratory 13 17 Rate Blood Pressure 161/91 140/82 131/88 O2 Sat by Pulse 94 94 Oximetry 03/21/19 03/21/19 02:30 03:00 Temperature Pulse Rate 82 81 Respiratory 15 17 Rate Blood Pressure 133/83 131/85 O2 Sat by Pulse 95 95 Oximetry SHILOH score - Shiloh Score Age > 65: (0) No Aspirin use within the Past 7 Days: (1) Yes 3 or more CAD Risk Factors: (1) Yes 2 or more Angina events in past 24 hrs: (1) Yes Known CAD with more than 50% Stenosis: (1) Yes Elevated Cardiac Markers: (0) No ST Deviation Greater than 0.5mm: (0) No SHILOH Score: 4 ED Medical Decision Making - Lab Data Result diagrams: 03/21/19 01:14 03/21/19 01:14 - EKG Data -: EKG Interpreted by Me EKG shows normal: sinus rhythm (with ventricular trigeminy), axis, intervals, QRS complexes, ST-T waves Rate: normal - EKG Data When compared to previous EKG there are: no significant change Interpretation: unchanged when compared t (02/10/19) - Radiology Data Radiology results: image reviewed interpreted by me: Chest x-ray does not show any acute process. There are no pleural effusions, obvious pneumonia and there is no pneumothorax. - Medical Decision Making This patient presents with some acute midsternal to left-sided chest pain that started about 30 minutes prior to arrival. He has a history of coronary artery disease with previous IL, hypertension, dilated cardiomyopathy. The patient did have a heart catheterization done about 2 months ago but didn't require angioplasty and stent placement for the mid LAD at that time. He was given some morphine and sublingual nitroglycerin here and still continues to have chest discomfort. EKG did not show any signs of ST elevation IL and is unchanged from previous. Chest x-ray did not show any acute process. First troponin negative, as is the d-dimer level. He has a moderate heart score and SHILOH score. The patient will be admitted to the hospital for further evaluation and treatment and was accepted for admission by the hospitalist, Dr. Taylor. - Differential Diagnosis IL, PE, Costochondritis, CHF, Pneumonia Critical Care Time: No Critical care attestation.: If time is entered above; I have spent that time in minutes in the direct care of this critically ill patient, excluding procedure time. ED Disposition Clinical Impression: Acute chest pain, Dilated cardiomyopathy, Tobacco abuse disorder CAD (coronary artery disease) Qualifiers: Coronary Disease-Associated Artery/Lesion type: unspecified vessel or lesion t ype [place] vs. transplanted heart: [place] heart Associated angina: with stable angina Qualified Code(s): I25.118 - Atherosclerotic heart disease of [place] coronary artery with other forms of angina pectoris Hypertension Qualifiers: Hypertension type: essential hypertension Qualified Code(s): I10 - Essential (primary) hypertension Disposition: 09 OP ADMIT IP TO THIS HOSP Is pt being admited?: Yes Condition: Fair Instructions: Chest Pain (ED), Hypertension (ED) Referrals: PRIMARY CARE, [Referring] - 3-5 Days Time of Disposition: 02:30
--- NOTE | 2019-03-21 01:23 | XRay Report ---
CHEST 1 VIEW INDICATION / CLINICAL INFORMATION: CP. COMPARISON: None available. FINDINGS: SUPPORT DEVICES: None. HEART / MEDIASTINUM: No significant abnormality. LUNGS / PLEURA: No significant pulmonary or pleural abnormality. No pneumothorax. ADDITIONAL FINDINGS: No significant additional findings. IMPRESSION: 1. No acute findings. Signer Name: Rambo Sosa MD Signed: 03/21/2019 1:18 AM Workstation Name: [id number]
[2019-03-21 01:29] LABS: Basophils # (Auto) 0.1 K/mm3 (0.0-0.1); Eosinophils % (Auto) 10.3 % (0.0-4.3); Hematocrit 43.3 % (35.5-45.6); Lymphocytes # (Auto) 2.4 K/mm3 (1.2-5.4); Lymphocytes % (Auto) 25.8 % (13.4-35.0); Mean Corpuscular HGB Conc 35 % (32-34); Mean Corpuscular Volume 94 fl (84-94); Monocytes # (Auto) 0.8 K/mm3 (0.0-0.8); Monocytes % (Auto) 8.3 % (0.0-7.3); Platelet Count 198 K/mm3 (140-440); Red Cell Distribution Width 14.3 % (13.2-15.2)
[2019-03-21 01:56] LABS: Alanine Aminotransferase 24 units/L (7-56); Albumin 4.3 g/dL (3.9-5); BUN/Creatinine Ratio 11; Blood Urea Nitrogen 9 mg/dL (9-20); Calcium 8.8 mg/dL (8.4-10.2); Hemolysis Index 13
[2019-03-21] MEDS ORDERED: ZOFRAN IV PRN (02:56)
[2019-03-21] MEDS ORDERED: DILAUDID IV PRN (02:56)
[2019-03-21] MEDS ORDERED: TYLENOL PO PRN (02:57)
[2019-03-21] MEDS ORDERED: NITROSTAT SL PRN (03:00)
[2019-03-21] MEDS: NITRO-BID 2% TP SCH ×2 (06:09→10:19)
--- NOTE | 2019-03-21 06:57 | History and Physical Report ---
CHIEF COMPLAINT: Chest pain. HISTORY OF PRESENT ILLNESS: The patient is a 53-year-old male, who was complaining about mid sternal chest pain, also extending to the precordial area. He said pain started about 30 minutes prior to presentation. The patient's chest pain is associated with shortness of breath, but there was no history of nausea, vomiting, diaphoresis, fever, or cough. Also, patient denied history of dizziness and patient had cardiac catheterization done in December that showed 2-vessel disease and patient had stent placed during the visit and was subsequently found to have low ejection fraction of about 30-35%. The patient's chest pain is relieved with pain medication. PAST MEDICAL HISTORY: Pertinent for hypertension, cerebrovascular accident with right arm weakness, coronary artery disease, congestive heart failure. Also, patient has past medical history of seizure disorder, bipolar disorder; anxiety disorder, sleep apnea. PAST SURGICAL HISTORY: Pertinent for lower back surgery, jaw area of surgery, right hip surgery and coronary artery stent placement. FAMILY HISTORY: Noncontributory. SOCIAL HISTORY: The patient smokes cigarette, does not drink alcohol and does not use illicit drugs. MEDICATIONS: The patient is on Prevacid 50 mg by mouth twice daily, Seroquel 400 mg by mouth at bedtime, enteric-coated aspirin 81 mg by mouth daily, Lipitor 40 mg at bedtime, Plavix 75 mg by mouth daily, Lasix 20 mg by mouth daily, carvedilol 3.125 mg by mouth twice daily, isosorbide mononitrate 30 mg by mouth daily, lisinopril 5 mg by mouth daily, nicotine patch 15 mg transdermally daily, ranolazine 500 mg by mouth twice daily. ALLERGIES: THE PATIENT IS ALLERGIC TO CHLORPROMAZINE, PHENOBARBITAL, PHENYTOIN. REVIEW OF SYSTEMS: CONSTITUTIONAL: There is no fever, no chills, no diaphoresis. HEENT: There is no headache or sore throat. CARDIOVASCULAR SYSTEM: Chest pain is present. No orthopnea. RESPIRATORY SYSTEM: Shortness of breath is present. No cough. GASTROINTESTINAL SYSTEM: There is no nausea, no vomiting, no abdominal pain, diarrhea or constipation. NEUROLOGICAL SYSTEM: There is no numbness, no dizziness, no altered mental status. MUSCULOSKELETAL SYSTEM: There is no joint pain or swelling. DERMATOLOGICAL SYSTEM: There is no skin rash or itching. GENITOURINARY SYSTEM: There is no dysuria, hematuria, or flank pain. Rest of system review is normal. PHYSICAL EXAMINATION: GENERAL: At the time of exam, patient was found to be alert, oriented x 3 and in mild distress due to chest pain. VITAL SIGNS: At the initial time of presentation showed temperature of 99 degrees Fahrenheit, pulse of 100, respirations 22, blood pressure 166/91, O2 sat of 97% on room air. HEENT: Showed pupils to be equal, round, reactive to light and accommodating. Extraocular muscles are intact. NECK: Supple with no JVD or carotid bruit. CARDIOVASCULAR SYSTEM: Showed normal first and second heart sounds with no gallops or murmurs. RESPIRATORY SYSTEM: Showed good air entry on both sides of the lungs with no abnormal breath sounds. GASTROINTESTINAL SYSTEM: Show abdomen to be full, soft, nontender with no organomegaly or rigidity. NEUROLOGIC: Shows no focal deficit. MUSCULOSKELETAL SYSTEM: Show no joint swelling or tenderness. DERMATOLOGICAL SYSTEM: Show no skin rash. GENITOURINARY SYSTEM: Showing no costovertebral angle tenderness. PERTINENT LABORATORY AND IMAGING STUDIES: The patient has CBC done with normal white count, normal hemoglobin and normal hematocrit with CBC differential showing high eosinophil count of 10.3% and high monocyte count of 8.3%. The patient's coagulation studies were unremarkable and chemistry was unremarkable. The patient's troponin level came back normal. DIAGNOSIS: Chest pain. PLAN OF CARE: 1. The patient will be placed on observation on telemetry. 2. The patient will have serial cardiac enzymes checked every 6 hours x 2 more levels and this involves troponin, total CK, and CK-MB. 3. The patient will have Cardiology consult with [facility] surgeon with Dr. Savannah Galvan mention because of chest pain with cardiomyopathy and recent history of cardiac catheterization and stent placement. 4. The patient will be on p.r.n. medications like Tylenol 650 mg by mouth every 4 hours for fever and headache and IV Zofran 4 mg every 8 hours as needed for nausea and vomiting. 5. The patient will be on aspirin 325 mg by mouth daily and will be on nitro paste half inch to anterior chest wall q.i.d. as well as Nitrostat 0.4 mg sublingual every 5 minutes as needed for breakthrough chest pain. 6. The patient will be on IV Dilaudid 0.5 mg every 4 hours as needed for chest pain. 7. The patient will be on his home medication as shown in the medication reconciliation section. 8. The patient will be on oxygen by nasal cannula at 2 liters per minute. 9. The patient will be n.p.o. until seen by the machine load clerk. 10. The patient will be on heparin 5000 units q. 12 subcutaneous for DVT prophylaxis. JOB# [id number] OCN/NTS
--- NOTE | 2019-03-21 09:24 | Consultation ---
History of Present Illness Consult date: 03/21/19 Consult reason: chest pain History of present illness: 53 year old male presenting with substernal chest pain. Patient has a history of coronary artery disease and he is status post a bare metal stent inserted to the LAD approximately one to 2 months ago with a residual ischemic cardiomyopathy. His chest pain felt to be atypical troponin so far negative cardiac consultation obtained Past History Past Medical History: CAD, hypertension, hyperlipidemia Past Surgical History: PTCA Social history: smoking, alcohol abuse Medications and Allergies Allergies Allergy/AdvReac Type Severity Reaction Status Date / Time chlorpromazine Allergy Seizure Verified 04/18/17 15:47 [From Thorazine] phenobarbital Allergy Seizure Verified 04/18/17 15:47 phenytoin [From Dilantin] Allergy Seizure Verified 04/18/17 15:47 Home Medications Medication Instructions Recorded Confirmed Last Taken Type Lansoprazole [Prevacid] 15 mg PO BID #30 cap 06/05/18 03/21/19 Unknown Rx Quetiapine Fumarate [Seroquel] 400 mg PO QHS 01/24/19 03/21/19 Unknown History Aspirin EC [Halfprin EC] 81 mg PO QDAY #30 tablet. 01/27/19 03/21/19 Unknown Rx AtorvaSTATin [Lipitor] 40 mg PO QHS #30 tablet 01/27/19 03/21/19 Unknown Rx Clopidogrel [Plavix] 75 mg PO QDAY #30 tablet 01/27/19 03/21/19 Unknown Rx Furosemide [Lasix TAB] 20 mg PO QDAY #30 tablet 01/27/19 03/21/19 Unknown Rx Carvedilol [Coreg] 3.125 mg PO BID #60 tablet 01/29/19 03/21/19 Unknown Rx ISOSORBIDE MONOnitrate [Imdur ER] 30 mg PO QDAY #30 tablet 01/29/19 03/21/19 Unknown Rx Lisinopril [Zestril TAB] 5 mg PO QDAY #30 tablet 01/29/19 03/21/19 Unknown Rx Nicotine [Habitrol] 14 mg TD QDAY #30 patch 02/10/19 03/21/19 Unknown Rx Ranolazine ER [Ranexa ER] 500 mg PO BID #60 tablet 02/10/19 03/21/19 Unknown Rx Active Meds: Active Medications Acetaminophen (Tylenol) 650 mg PO Q4H PRN PRN Reason: Headache Aspirin (Aspirin) 325 mg PO QDAY [facility] Atorvastatin Calcium (Lipitor) 40 mg PO QHS [facility] Carvedilol (Coreg) 3.125 mg PO BID [facility] Clopidogrel Bisulfate (Plavix) 75 mg PO QDAY [facility] Furosemide (Lasix) 20 mg PO QDAY [facility] Hydromorphone HCl (Dilaudid) 0.5 mg IV Q4H PRN PRN Reason: Pain , Severe (7-10) Last Admin: 03/21/19 05:24 Dose: 0.5 mg Documented by: Lisinopril (Zestril) 5 mg PO QDAY [facility] Nicotine (Habitrol) 14 mg TD QDAY [facility] Nitroglycerin (Nitro-Bid 2%) 0.5 inch TP QIDNTG [facility]; Protocol Last Admin: 03/21/19 06:09 Dose: 0.5 inch Documented by: Nitroglycerin (Nitrostat) 0.4 mg SL .Q5MIN PRN PRN Reason: Chest Pain Ondansetron HCl (Zofran) 4 mg IV Q8H PRN PRN Reason: Nausea And Vomiting Pantoprazole Sodium (Protonix) 20 mg PO QDAY [facility] Quetiapine Fumarate (Seroquel) 400 mg PO QHS [facility] Ranolazine (Ranexa Er) 500 mg PO BID [facility] Review of Systems All systems: negative Cardiovascular: chest pain Physical Examination Vital Signs Temp Pulse Resp BP Pulse Ox 99 F 100 H 22 166/91 97 03/21/19 00:52 03/21/19 00:52 03/21/19 00:52 03/21/19 00:52 03/21/19 00:52 General appearance: no acute distress, well-nourished HEENT: Positive: PERRL, Mucus Membranes Moist Neck: Positive: neck supple, trachea midline Cardiac: Positive: Reg Rate and Rhythm, S1/S2. Negative: Audible Murmur Lungs: Positive: clear to auscultation, Normal Breath Sounds Neuro: Positive: Grossly Intact Abdomen: Positive: Soft, Active Bowel Sounds. Negative: Tender, Distended Male genitourinary: Positive: normal Skin: Positive: Clear Incision: Cardiac Cath Site Musculoskeletal: No Pain, Normal Range of Motion Extremities: Present: normal. Absent: edema Results 03/21/19 01:14 10/20/19 01:14 Cardiac Enzymes 03/21/19 03/21/19 Range/Units 01:14 06:35 AST 15 (5-40) units/L CK-MB (CK-2) 2.0 (0.0-4.0) ng/mL CBC 03/21/19 Range/Units 01:14 WBC 9.5 (4.5-11.0) K/mm3 RBC 4.60 (3.65-5.03) M/mm3 Hgb 15.0 (11.8-15.2) gm/dl Hct 43.3 (35.5-45.6) % Plt Count 198 (140-440) K/mm3 Lymph # 2.4 (1.2-5.4) K/mm3 Jones # 0.8 (0.0-0.8) K/mm3 Eos # 1.0 H (0.0-0.4) K/mm3 Baso # 0.1 (0.0-0.1) K/mm3 Comprehensive Metabolic Panel 03/21/19 Range/Units 01:14 Sodium 141 (137-145) mmol/L Potassium 3.8 (3.6-5.0) mmol/L Chloride 103.1 (98-107) mmol/L Carbon Dioxide 23 (22-30) mmol/L BUN 9 (9-20) mg/dL Creatinine 0.8 (0.8-1.5) mg/dL Glucose 98 (75-100) mg/dL Calcium 8.8 (8.4-10.2) mg/dL AST 15 (5-40) units/L ALT 24 (7-56) units/L Alkaline Phosphatase 95 (35-129) units/L Total Protein 6.6 (6.3-8.2) g/dL Albumin 4.3 (3.9-5) g/dL EKG interpretations - EKG Sinus rhythms and dysrhythmias: sinus rhythm Assessment and Plan 1. Atypical chest pain 2. Coronary artery disease status post PCI with bare metal stent to the left anterior descending artery. 3. Essential hypertension 4. Hyperlipidemia 5. Bipolar disorder 6. Ischemic cardiomyopathy left ventricular ejection fraction 30-35% Plan. Currently stable chest pain felt to be atypical troponin levels so far negative. Recommend conservative management I just anti-ischemic medication and maximize anti-ischemic medication.
--- NOTE | 2019-03-21 09:48 | Discharge Summary ---
Providers - Providers Date of Admission: 03/21/19 03:17 Date of discharge: 03/21/19 Attending physician: SARBJIT LI 03/21/19 06:00 Consult to Physician [CONS] Routine Comment: Consulting Provider: REGGIE SOTO Physician Instructions: Reason For Exam: CHEST PAIN WITH CARDIOMYOPATHY & RECENT CACATH. Hospitalization Condition: Fair Hospital course: 53-year-old male presents to the emergency department via EMS from home with complaint of some midsternal to left-sided chest pain that started about 30 minutes prior to presentation. It is associated with some shortness of breath. He denies any nausea, vomiting, back pain, fever or diaphoresis. He did not take anything for her symptoms prior to presentation and was given a baby aspirin in route. He is a tobacco smoker but denies any illicit drug use. He has a past medical history that includes coronary artery disease with previous [place], dilated cardiomyopathy, bipolar disorder, hypertension. The patient had a heart catheterization done here on 01/26/19 that showed 2 vessel disease and the patient had angioplasty and stenting of the mid LAD and was also found to have an EF of 30-35%. He has a primary care physician, Dr. Salcedo, but does not have a drafter patent. No recent travel or sick contacts at home. Some chest pain presint now. D/w Cardiolgy Dr Grider ==No further work up. If Troponins are negative patient to be discharged. 1. Atypical chest pain 2. Coronary artery disease status post PCI with bare metal stent to the left anterior descending artery. 3. Essential hypertension 4. Hyperlipidemia 5. Bipolar disorder 6. Ischemic cardiomyopathy left ventricular ejection fraction 30-35 7. Nicotine Dependence- 8.Ventricular bigeminy and Trigeminy.D/w Cardiolgy Dr Grider--no intervention.To follow up with Dr Grider as out patient.- Plan. Currently stable chest pain felt to be atypical troponin levels so far negative. Recommend conservative management and maximize anti-ischemic medication. patient advised to [place] regulary atleast 2 miles a day everyday and loose his weight and stop smoking. Patient has multiple risk factors on which he can work and improve. Disposition: - TO HOME OR SELFCARE Core Measure Documentation - Palliative Care Palliative Care/ Comfort Measures: Not Applicable - Core Measures Any of the following diagnoses?: none Exam - Constitutional Vitals: Temp Pulse Resp BP Pulse Ox 98.6 F 74 18 129/62 97 03/21/19 07:35 03/21/19 07:35 03/21/19 07:35 03/21/19 07:35 03/21/19 08:17 General appearance: Present: no acute distress, well-nourished - EENT Eyes: Present: PERRL ENT: hearing intact, clear oral mucosa - Neck Neck: Present: supple, normal ROM - Respiratory Respiratory effort: normal Respiratory: bilateral: CTA - Cardiovascular Heart rate: 78 Rhythm: regular Heart Sounds: Present: S1 & S2. Absent: rub, click - Extremities Extremities: pulses symmetrical, No edema Peripheral Pulses: within normal limits - Abdominal General gastrointestinal: Present: soft, non-tender, non-distended, normal bowel sounds Male genitourinary: Present: normal - Integumentary Integumentary: Present: clear, warm, dry - Musculoskeletal Musculoskeletal: gait normal, strength equal bilaterally - Psychiatric Psychiatric: appropriate mood/affect, intact judgment & insight - Neurologic Neurologic: CNII-XII intact, moves all extremities Plan Activity: no restrictions Diet: low fat, low cholesterol, low salt, diabetic Special Instructions: smoking cessation, other (Walking every day for 2 miles) Follow up with: PRIMARY CAREMD [Referring] - 3-5 Days REGGIE SOTO MD [Staff Physician] - 7 Days
[2019-03-21] MEDS ORDERED: COREG PO SCH (10:00)
[2019-03-21] MEDS ORDERED: ASPIRIN PO SCH (10:00)
[2019-03-21] MEDS ORDERED: LASIX PO SCH (10:00)
[2019-03-21] MEDS ORDERED: RANEXA ER PO SCH (10:00)
[2019-03-21] MEDS ORDERED: PROTONIX PO SCH (10:00)
[2019-03-21] MEDS ORDERED: PLAVIX PO SCH (10:00)
[2019-03-21] MEDS ORDERED: ZESTRIL PO SCH (10:00)
[2019-03-21] MEDS: HABITROL TD SCH ×2 (10:19→10:26)
[2019-03-21 11:22] VITALS: BP 141/99
== END 2019-03-21 13:54 | disposition home or self-care (01) ==
LOC: ED 00:43 → 4A 03:17
PROVIDERS: ADMIT Internal Medicine; ATTEND Internal Medicine
DX: R07.89 Other chest pain (principal); I42.0 Dilated cardiomyopathy; I25.10 Atherosclerotic heart disease of native coronary artery without angina pectoris; I11.0 Hypertensive heart disease with heart failure; I50.9 Heart failure, unspecified; F31.9 Bipolar disorder, unspecified; F41.9 Anxiety disorder, unspecified; F17.200 Nicotine dependence, unspecified, uncomplicated; Z88.8 Allergy status to other drugs, medicaments and biological substances; Z79.2 Long term (current) use of antibiotics; Z79.899 Other long term (current) drug therapy
CPT/HCPCS: 36415; 71045; 80053; 82550; 82553; 84484; 85025; 85379; 87116; 93005; 93010; 96374; 96375; 99284; G0378; J1170; J2270

== ENCOUNTER 2019-03-21 21:46 | Observation (INO) | payer MEDICARE ==
--- NOTE | 2019-03-21 22:20 | Event Note ---
ED Screening Note Date of service: 03/21/19 Time: 22:19 ED Screening Note: This is a 53 y.o. M. that presents to the ER with chest pain after smoking in the parking lot. Patient states he was discharged this morning and told to sit in the lobby until tomorrow morning to wait for social service coordinator. States he went outside and walked the parking lot. He smoked one cigarette and started having chest pain. This initial assessment/diagnostic orders/clinical plan/treatment(s) is/are subject to change based on patients health status, clinical progression and re- assessment by fellow clinical providers in the ED. Further treatment and workup at subsequent clinical providers discretion. Patient/guardian urged not to elope from the ED as their condition may be serious if not clinically assessed and managed. Initial orders include: EKG
[2019-03-21] MEDS ORDERED: ASPIRIN 81 MG TAB CHEW PO ONE (23:14)
[2019-03-21] MEDS ORDERED: NITROGLYCERIN 0.4 MG TAB SUBL SL ONE (23:15)
--- NOTE | 2019-03-21 23:20 | Emergency Department Report ---
ED Chest Pain HPI - General Chief Complaint: Chest Pain Stated Complaint: CHEST PAIN Time Seen by Provider: 03/21/19 22:19 Source: patient Mode of arrival: Ambulatory Limitations: No Limitations - History of Present Illness Initial Comments: Patient is 53 years old male with history of coronary artery disease, status post stent and a 2019. Patient presented to the ER complaining of left-sided chest pain started one hour ago. Patient was discharged from the hospital today. Patient stated that when he left the hospital his pain was completely resolved that pain and retention back and is similar to what he had for the last 3 days. Patient had a cardiac cath in December 2018. Complaint: chest pain -: This evening Onset: during rest Pain Location: substernal Pain Radiation: none Quality: tightness, heaviness Consistency: constant Worsens With: nothing - Related Data Previous Rx's Medication Instructions Recorded Last Taken Type Aspirin EC [Halfprin EC] 81 mg PO QDAY #30 tablet. 01/27/19 Unknown Rx ISOSORBIDE MONOnitrate [Imdur ER] 30 mg PO QDAY #30 tablet 01/29/19 Unknown Rx Aspirin 325 mg PO QDAY #100 tablet 03/21/19 Unknown Rx AtorvaSTATin [Lipitor] 40 mg PO QHS #30 tablet 03/21/19 Unknown Rx Carvedilol [Coreg] 3.125 mg PO BID #60 tablet 03/21/19 Unknown Rx Clopidogrel [Plavix] 75 mg PO QDAY #30 tablet 03/21/19 Unknown Rx Furosemide [Lasix TAB] 20 mg PO QDAY #30 tablet 03/21/19 Unknown Rx Lansoprazole [Prevacid] 15 mg PO BID #30 cap 03/21/19 Unknown Rx Lisinopril [Zestril TAB] 5 mg PO QDAY #30 tablet 03/21/19 Unknown Rx Nicotine [Habitrol] 14 mg TD QDAY #14 patch 03/21/19 Unknown Rx Oxycodone HCl/Acetaminophen 1 each PO Q12H PRN #14 tablet 03/21/19 Unknown Rx [Percocet 7.5/325 mg] Pantoprazole [Protonix TAB] 20 mg PO QDAY #30 tablet. 03/21/19 Unknown Rx QUEtiapine [SEROquel] 400 mg PO QHS #30 tablet 03/21/19 Unknown Rx Ranolazine ER [Ranexa ER] 500 mg PO BID #60 tablet 03/21/19 Unknown Rx Allergies Allergy/AdvReac Type Severity Reaction Status Date / Time chlorpromazine Allergy Seizure Verified 04/18/17 15:47 [From Thorazine] phenobarbital Allergy Seizure Verified 04/18/17 15:47 phenytoin [From Dilantin] Allergy Seizure Verified 04/18/17 15:47 Heart Score - HEART Score History: Moderately suspicious EKG: Non-specific Age: 45-65 Risk factors: > 3 risk factors or hx of atherosclerotic disease Troponin: < normal limit HEART Score: 5 - Critical Actions Critical Actions: 4-6 pts:12-16.6% risk of adverse cardiac event. Should be admitted ED Review of Systems ROS: Stated complaint: CHEST PAIN Other details as noted in HPI Comment: All other systems reviewed and negative Constitutional: denies: chills, fever Respiratory: denies: cough, shortness of breath, SOB with exertion, wheezing Cardiovascular: chest pain Gastrointestinal: denies: abdominal pain, nausea, vomiting, diarrhea, constipation, hematemesis, hematochezia Musculoskeletal: denies: back pain Neurological: denies: headache, weakness, numbness, paresthesias, confusion, abnormal gait ED Past Medical Hx - Past Medical History Hx Hypertension: Yes Hx CVA: Yes (right arm weakness) Hx Heart Attack/AMI: Yes Hx Congestive Heart Failure: Yes Hx Diabetes: No Hx Deep Vein Thrombosis: No Hx Pulmonary Embolism: No Hx GERD: No Hx Liver Disease: No Hx Renal Disease: No Hx Sickle Cell Disease: No Hx Arthritis: No Hx Headaches / Migraines: No Hx Seizures: Yes Hx Kidney Stones: No Hx Psychiatric Treatment: Yes (BIPOLAR AND ANXIETY) Hx Asthma: No Hx COPD: No Hx Tuberculosis: No Hx Dementia: No Hx HIV: No Additional medical history: Sleep Apnea,facial droop r/t jaw surgery 11/2017, P VC'S - Surgical History Hx Coronary Stent: No Hx Open Heart Surgery: No Hx Pacemaker: No Hx Internal Defibrillator: No Hx Cholecystectomy: No Hx Appendectomy: No Hx Breast Surgery: No Additional Surgical History: Lower Back, jaw 2018. Right Hip, stent placed - Social History Smoking Status: Current Every Day Smoker - Medications Home Medications: Home Medications Medication Instructions Recorded Confirmed Last Taken Type Aspirin EC [Halfprin EC] 81 mg PO QDAY #30 tablet. 01/27/19 03/21/19 Unknown Rx ISOSORBIDE MONOnitrate [Imdur ER] 30 mg PO QDAY #30 tablet 01/29/19 03/21/19 Unknown Rx Aspirin 325 mg PO QDAY #100 tablet 03/21/19 Unknown Rx AtorvaSTATin [Lipitor] 40 mg PO QHS #30 tablet 03/21/19 Unknown Rx Carvedilol [Coreg] 3.125 mg PO BID #60 tablet 03/21/19 Unknown Rx Clopidogrel [Plavix] 75 mg PO QDAY #30 tablet 03/21/19 Unknown Rx Furosemide [Lasix TAB] 20 mg PO QDAY #30 tablet 03/21/19 Unknown Rx Lansoprazole [Prevacid] 15 mg PO BID #30 cap 03/21/19 Unknown Rx Lisinopril [Zestril TAB] 5 mg PO QDAY #30 tablet 03/21/19 Unknown Rx Nicotine [Habitrol] 14 mg TD QDAY #14 patch 03/21/19 Unknown Rx Oxycodone HCl/Acetaminophen 1 each PO Q12H PRN #14 tablet 03/21/19 Unknown Rx [Percocet 7.5/325 mg] Pantoprazole [Protonix TAB] 20 mg PO QDAY #30 tablet.dr 03/21/19 Unknown Rx QUEtiapine [SEROquel] 400 mg PO QHS #30 tablet 03/21/19 Unknown Rx Ranolazine ER [Ranexa ER] 500 mg PO BID #60 tablet 03/21/19 Unknown Rx ED Physical Exam - General Limitations: No Limitations General appearance: alert, in no apparent distress - Head Head exam: Present: atraumatic, normocephalic, normal inspection - Eye Eye exam: Present: normal appearance - ENT ENT exam: Present: normal exam, normal orophraynx, mucous membranes moist - Neck Neck exam: Present: normal inspection, full ROM. Absent: tenderness, meningismus, lymphadenopathy, thyromegaly - Respiratory Respiratory exam: Present: normal lung sounds bilaterally - Cardiovascular Cardiovascular Exam: Present: regular rate, normal rhythm, normal heart sounds - GI/Abdominal GI/Abdominal exam: Present: soft, normal bowel sounds. Absent: distended, tenderness, guarding, rebound, rigid, organomegaly, mass, bruit, pulsatile mass - Extremities Exam Extremities exam: Present: normal inspection, full ROM, normal capillary refill. Absent: tenderness, pedal edema, joint swelling, calf tenderness - Back Exam Back exam: Present: normal inspection, full ROM. Absent: CVA tenderness (R), CVA tenderness (L), muscle spasm, paraspinal tenderness, vertebral tenderness - Neurological Exam Neurological exam: Present: alert, oriented X3, CN II-XII intact, normal gait, reflexes normal - Psychiatric Psychiatric exam: Present: normal mood - Skin Skin exam: Present: warm, intact, normal color ED Course Vital Signs 03/21/19 03/21/19 03/21/19 22:40 23:01 23:39 Temperature 98.2 F Pulse Rate 83 90 79 Respiratory 14 17 Rate Blood Pressure 126/81 114/87 Blood Pressure 126/81 [Left] O2 Sat by Pulse 96 96 Oximetry 03/22/19 03/22/19 03/22/19 00:01 01:01 02:01 Temperature Pulse Rate 87 90 84 Respiratory 14 19 17 Rate Blood Pressure 115/65 134/78 137/72 Blood Pressure [Left] O2 Sat by Pulse 95 92 94 Oximetry 03/22/19 03/22/19 03:01 04:01 Temperature Pulse Rate 77 77 Respiratory 15 21 Rate Blood Pressure 137/72 126/72 Blood Pressure [Left] O2 Sat by Pulse 94 94 Oximetry SHILOH score - Shiloh Score Age > 65: (0) No Aspirin use within the Past 7 Days: (1) Yes 3 or more CAD Risk Factors: (1) Yes 2 or more Angina events in past 24 hrs: (1) Yes Known CAD with more than 50% Stenosis: (1) Yes Elevated Cardiac Markers: (0) No ST Deviation Greater than 0.5mm: (0) No SHILOH Score: 4 ED Medical Decision Making - Lab Data Result diagrams: 03/21/19 23:42 03/21/19 23:42 - EKG Data -: EKG Interpreted by [place] EKG shows normal: sinus rhythm Rate: normal - EKG Data 03/21/19 23:21 EKG show multiple PVCs. - Medical Decision Making Patient is 53 years old male with history of coronary artery disease, status post stent and a 2019. Patient presented to the ER complaining of left-sided chest pain started one hour ago. Patient was discharged from the hospital today. Patient stated that when he left the hospital his pain was completely resolved that pain and retention back and is similar to what he had for the last 3 days. Patient had a cardiac cath in December 2018 Patient EKG showed no ST elevation. Chest x-ray is unremarkable. D-dimer is negative. First set of troponin is negative. I discussed the patient was Dr. Grider, isn't machine etcher will advised to admit the patient continue cardiac enzyme and he will lab with the patient in the hospital. I discussed the patient with Dr. Taylor, he agreed to admit the patient to medical service. Critical Care Time: Yes Critical care time in (mins) excluding proc time.: 30 Critical care attestation.: If time is entered above; I have spent that time in minutes in the direct care of this critically ill patient, excluding procedure time. ED Disposition Clinical Impression: Unstable angina, Chest pain Disposition: 09 OP ADMIT IP TO THIS HOSP Is pt being admited?: Yes Condition: Stable
--- NOTE | 2019-03-21 23:48 | XRay Report ---
CHEST 2 VIEWS INDICATION / CLINICAL INFORMATION: Chest Pain. COMPARISON: None available. FINDINGS: SUPPORT DEVICES: None. HEART / MEDIASTINUM: No significant abnormality. LUNGS / PLEURA: No significant pulmonary or pleural abnormality. No pneumothorax. ADDITIONAL FINDINGS: No significant additional findings. IMPRESSION: 1. No acute findings. Signer Name: Rambo Sosa MD Signed: 03/21/2019 11:44 PM Workstation Name: [id number]
[2019-03-21 23:54] LABS: Basophils # (Auto) 0.1 K/mm3 (0.0-0.1); Eosinophils # (Auto) 1.1 K/mm3 (0.0-0.4); Eosinophils % (Auto) 10.8 % (0.0-4.3); Hematocrit 43.3 % (35.5-45.6); Hemoglobin 14.9 gm/dl (11.8-15.2); Lymphocytes # (Auto) 2.8 K/mm3 (1.2-5.4); Mean Corpuscular HGB Conc 34 % (32-34); Mean Corpuscular Volume 95 fl (84-94); Monocytes # (Auto) 0.6 K/mm3 (0.0-0.8); Monocytes % (Auto) 6.1 % (0.0-7.3); Platelet Count 195 K/mm3 (140-440); Red Blood Count 4.57 M/mm3 (3.65-5.03); Red Cell Distribution Width 14.7 % (13.2-15.2)
[2019-03-22 00:04] LABS: INR 0.99 (0.87-1.13); Partial Thromboplastin Time 26.1 Sec. (24.2-36.6)
[2019-03-22 00:39] LABS: Bilirubin,Urine NEG (Negative); Blood,Urine NEG (Negative); Color,Urine Straw (Yellow); Protein,Urine <15 mg/dL mg/dL (Negative); RBC,Urine < 1.0 /HPF (0.0-6.0); Urobilinogen,Urine < 2.0 mg/dL (<2.0)
[2019-03-22 00:44] LABS: BUN/Creatinine Ratio 14; Blood Urea Nitrogen 11 mg/dL (9-20); Calcium 8.6 mg/dL (8.4-10.2); Hemolysis Index 7
[2019-03-22 00:52] LABS: Amphetamine Screen,Urine PRESUMPTIVE NEGATIVE; Benzodiazepines Screen,Urine PRESUMPTIVE NEGATIVE; Cannabinoid Screen,Urine PRESUMPTIVE NEGATIVE; Cocaine Screen,Urine PRESUMPTIVE NEGATIVE; Methadone Screen,Urine PRESUMPTIVE NEGATIVE; Opiate Screen,Urine PRESUMPTIVE NEGATIVE
[2019-03-22] MEDS ORDERED: ONDANSETRON 4 MG/2 ML INJ IV PRN (03:27)
[2019-03-22] MEDS ORDERED: NITROGLYCERIN 0.4 MG TAB SUBL SL PRN (03:28)
[2019-03-22] MEDS ORDERED: ACETAMINOPHEN 325 MG TAB PO PRN (03:40)
[2019-03-22] MEDS: HEPARIN 5,000 UNIT/1 ML VIAL SUB-Q SCH ×2 (03:47→10:40)
--- NOTE | 2019-03-22 04:17 | History and Physical Report ---
CHIEF COMPLAINT: Chest pain. HISTORY OF PRESENT ILLNESS: The patient is a 53-year-old male who was recently discharged from the hospital less than 24 hours ago after he initially presented with chest pain. He was evaluated and was ruled out fo [place] based on cardiac enzymes. The patient had Cardiology evaluation prior to discharge and then went home and said he then started feeling bad with chest pain again and he decided to come back to the Emergency Room. There was no history of shortness of breath and no history of nausea, vomiting, diaphoresis, fever, or chills. PAST MEDICAL HISTORY: Pertinent for cerebrovascular accident with right arm weakness. Also, the patient has past history of coronary artery disease, status post myocardial infarction, congestive heart failure, seizure disorder, bipolar disorder and anxiety disorder. Also, the patient has past medical history of sleep apnea. PAST SURGICAL HISTORY: Pertinent for lower back surgery, jaw surgery, right hip surgery and coronary artery stent placement. FAMILY HISTORY: Noncontributory. SOCIAL HISTORY: The patient smokes cigarette, does not use illicit drugs and it is not clear whether the patient drinks alcohol. MEDICATIONS: The patient is on aspirin 81 mg by mouth daily, isosorbide mononitrate 30 mg by mouth daily, Lipitor 40 mg daily, carvedilol 3.125 mg by mouth twice daily, Plavix 75 mg by mouth daily, Lasix 20 mg by mouth daily, Prevacid 50 mg by mouth twice daily, lisinopril 5 mg by mouth daily, nicotine patch 15 mg transdermally daily, Percocet 7.5/325 mg 1 by mouth every 12 hours, Protonix 20 mg by mouth daily, Seroquel 400 mg by mouth at bedtime and ranolazine 500 mg by mouth twice daily. ALLERGIES: THE PATIENT IS ALLERGIC TO CHLORPROMAZINE, PHENOBARBITAL, PHENYTOIN. REVIEW OF SYSTEMS: CONSTITUTIONAL: There is no fever, no chills, no diaphoresis. HEENT: There is no headache or sore throat. CARDIOVASCULAR SYSTEM: Chest pain is present. No orthopnea. RESPIRATORY SYSTEM: There is no shortness of breath or cough. GASTROINTESTINAL SYSTEM: There is no nausea, no vomiting, no abdominal pain, diarrhea or constipation. NEUROLOGICAL SYSTEM: There is no numbness, no dizziness, no altered mental status. MUSCULOSKELETAL SYSTEM: There is no joint pain or swelling. DERMATOLOGICAL SYSTEM: There is no skin rash or itching. GENITOURINARY SYSTEM: There is no dysuria, hematuria, or flank pain. Rest of system review is normal. PHYSICAL EXAMINATION: GENERAL: At the time of exam, the patient was found to be alert, oriented x 3 and not in acute distress. VITAL SIGNS: At the initial time of presentation showed temperature of 98.2 degrees Fahrenheit, pulse of 83, respiration 14, blood pressure 126/81, O2 sat of 96% on room air. HEENT: Showed pupils to be equal, round, reactive to light and accommodating. Extraocular muscles are intact. NECK: Supple with no JVD. CARDIOVASCULAR SYSTEM: Showed normal first and second heart sounds with no gallops or murmurs. RESPIRATORY SYSTEM: Showed good air entry on both sides of the lungs with no abnormal breath sounds. GASTROINTESTINAL SYSTEM: Showed abdomen to be full, soft, nontender with no organomegaly or rigidity. NEUROLOGIC: Shows no focal deficit. MUSCULOSKELETAL SYSTEM: Showed no joint swelling. DERMATOLOGICAL SYSTEM: Showed no skin rash or itching. GENITOURINARY SYSTEM: Showed no costovertebral angle tenderness. PERTINENT LABORATORY AND IMAGING STUDIES: The patient had a chest x-ray done that shows no acute cardiopulmonary findings. Lab results: The patient had CBC done with normal white count, normal hemoglobin and normal hematocrit with CBC differential showing elevated eosinophile count of 10.8%. Coagulation studies were unremarkable. The patient's chemistry showed low sodium level of 3.5 with rest of chemistry being unremarkable. Urinalysis was unremarkable. Toxicology screen came back unremarkable. DIAGNOSIS: Chest pain. PLAN OF CARE: 1. The patient will be placed on observation on telemetry. 2. The patient will have serial cardiac enzymes involving troponin, total CK, and CK-MB checked q. 6 hours x 2 more levels. 3. The patient will continue Cardiology consult with Dr. Rick Grider, requested by the Emergency Room physician. 4. The patient will be on aspirin 325 mg by mouth daily and will be on heparin 5000 units subcutaneous q. 12 hours for DVT prophylaxis. 5. The patient will be on IV morphine 2 mg every 3 hours as needed for pain and IV Zofran 4 mg every 8 hours for nausea and vomiting. 6. The patient will be on nitro paste 0.5 inches topically q.i.d. and will be on Nitrostat 0.4 mg sublingual every 5 minutes as needed for breakthrough chest pain. 7. The patient will be on Tylenol 650 mg by mouth every 4 hours for fever and headache. 8. The patient will be on oxygen by nasal cannula at the rate of 2 liters per minute. JOB# [id number] OCN/NTS MTDD
[2019-03-22] MEDS: NITROGLYCERIN 2% OINT 1 GM TP SCH ×4 (06:46→18:41)
[2019-03-22 08:47] LABS: Creatine Kinase MB 1.7 ng/mL (0.0-4.0)
[2019-03-22] MEDS ORDERED: ASPIRIN 325 MG TAB PO SCH (10:00)
[2019-03-22] MEDS ORDERED: CLOPIDOGREL 75 MG TAB PO SCH (10:00)
[2019-03-22] MEDS ORDERED: PANTOPRAZOLE 20 MG TAB PO SCH (10:00)
[2019-03-22] MEDS ORDERED: RANOLAZINE ER 500 MG TAB 12HR PO SCH (10:00)
[2019-03-22] MEDS ORDERED: FUROSEMIDE 20 MG TAB PO SCH (10:00)
[2019-03-22] MEDS ORDERED: CARVEDILOL 3.125 MG TAB PO SCH (10:00)
[2019-03-22] MEDS ORDERED: LISINOPRIL 5 MG TAB PO SCH (10:00)
--- NOTE | 2019-03-22 10:13 | Event Note ---
Date: 03/22/19 This is a follow-up from an admission earlier this morning. Patient has presented with recurrent chest pain and 2 hospitalizations over the past 4-5 days. Patient with recent heart catheterization and stenting of the LAD in December 2018. Patient seen and examined. We will continue the plan as outlined in H&P. Cardiology consultation pending. Time = 25 minutes with greater than 50% spent in coordination of care and counseling.
[2019-03-22] MEDS: MORPHINE 2 MG/1 ML INJ IV PRN ×2 (10:22→15:26)
--- NOTE | 2019-03-22 12:35 | Consultation ---
History of Present Illness Consult date: 03/22/19 Consult reason: chest pain History of present illness: 53-year old with coronary artery disease and ischemic cardiomyopathy. 2 months ago he underwent coronary stent placement to the LAD using a bare-metal stent. Diffuse moderate to severe disease of a small non-dominant right coronary was recommended for medical therapy. Ejection fraction 30-35%. Patient was just discharged from this hospital but returned less than 24 hours later and readmitted with atypical chest pain. Measurement of troponin level were normal. ECG was normal sinus rhythm,with frequent PVCs. No acute ST or T- wave abnormalities. Cardiology consultation has been requested. Medications and Allergies Allergies Allergy/AdvReac Type Severity Reaction Status Date / Time chlorpromazine Allergy Seizure Verified 04/18/17 15:47 [From Thorazine] phenobarbital Allergy Seizure Verified 04/18/17 15:47 phenytoin [From Dilantin] Allergy Seizure Verified 04/18/17 15:47 Home Medications Medication Instructions Recorded Confirmed Last Taken Type Aspirin EC [Halfprin EC] 81 mg PO QDAY #30 tablet. 01/27/19 03/21/19 Unknown Rx ISOSORBIDE MONOnitrate [Imdur ER] 30 mg PO QDAY #30 tablet 01/29/19 03/21/19 Unknown Rx Aspirin 325 mg PO QDAY #100 tablet 03/21/19 Unknown Rx AtorvaSTATin [Lipitor] 40 mg PO QHS #30 tablet 03/21/19 Unknown Rx Carvedilol [Coreg] 3.125 mg PO BID #60 tablet 03/21/19 Unknown Rx Clopidogrel [Plavix] 75 mg PO QDAY #30 tablet 03/21/19 Unknown Rx Furosemide [Lasix TAB] 20 mg PO QDAY #30 tablet 03/21/19 Unknown Rx Lansoprazole [Prevacid] 15 mg PO BID #30 cap 03/21/19 Unknown Rx Lisinopril [Zestril TAB] 5 mg PO QDAY #30 tablet 03/21/19 Unknown Rx Nicotine [Habitrol] 14 mg TD QDAY #14 patch 03/21/19 Unknown Rx Oxycodone HCl/Acetaminophen 1 each PO Q12H PRN #14 tablet 03/21/19 Unknown Rx [Percocet 7.5/325 mg] Pantoprazole [Protonix TAB] 20 mg PO QDAY #30 tablet. 03/21/19 Unknown Rx QUEtiapine [SEROquel] 400 mg PO QHS #30 tablet 03/21/19 Unknown Rx Ranolazine ER [Ranexa ER] 500 mg PO BID #60 tablet 03/21/19 Unknown Rx Active Meds: Active Medications Acetaminophen (Tylenol) 650 mg PO Q4H PRN PRN Reason: Headache Aspirin (Aspirin) 325 mg PO QDAY [facility] Last Admin: 03/22/19 10:19 Dose: 325 mg Documented by: Atorvastatin Calcium (Lipitor) 40 mg PO QHS [facility] Carvedilol (Coreg) 3.125 mg PO BID [facility] Last Admin: 03/22/19 10:21 Dose: 3.125 mg Documented by: Clopidogrel Bisulfate (Plavix) 75 mg PO QDAY [facility] Last Admin: 03/22/19 10:19 Dose: 75 mg Documented by: Furosemide (Lasix) 20 mg PO QDAY [facility] Last Admin: 03/22/19 10:21 Dose: 20 mg Documented by: Heparin Sodium (Porcine) (Heparin) 5,000 unit SUB-Q Q12HR [facility] Last Admin: 03/22/19 10:40 Dose: 5,000 unit Documented by: Lisinopril (Zestril) 5 mg PO QDAY [facility] Last Admin: 03/22/19 10:22 Dose: 5 mg Documented by: Morphine Sulfate (Morphine) 2 mg IV Q3H PRN PRN Reason: Pain, Moderate (4-6) Last Admin: 03/22/19 10:22 Dose: 2 mg Documented by: Nitroglycerin (Nitro-Bid 2%) 0.5 inch TP QIDNTG [facility]; Protocol Last Admin: 03/22/19 10:38 Dose: Not Given Documented by: Nitroglycerin (Nitrostat) 0.4 mg SL .Q5MIN PRN PRN Reason: Chest Pain Ondansetron HCl (Zofran) 4 mg IV Q8H PRN PRN Reason: Nausea And Vomiting Pantoprazole Sodium (Protonix) 20 mg PO QDAY [facility] Last Admin: 03/22/19 10:22 Dose: 20 mg Documented by: Ranolazine (Ranexa Er) 500 mg PO BID [facility] Last Admin: 03/22/19 10:39 Dose: 500 mg Documented by: Physical Examination Vital Signs Temp Pulse Resp BP Pulse Ox 98.2 F 83 14 126/81 96 03/21/19 22:40 03/21/19 22:40 03/21/19 22:40 03/21/19 22:40 03/21/19 22:40 General appearance: no acute distress HEENT: Positive: PERRL Neck: Positive: trachea midline Cardiac: Positive: Reg Rate and Rhythm Lungs: Positive: Normal Breath Sounds Neuro: Positive: Grossly Intact Extremities: Absent: edema Results 03/21/19 23:42 03/21/19 23:42 Cardiac Enzymes 03/22/19 Range/Units 07:55 CK-MB (CK-2) 1.7 (0.0-4.0) ng/mL Coagulation 03/21/19 Range/Units 23:42 PT 12.8 (12.2-14.9) Sec. INR 0.99 (0.87-1.13) APTT 26.1 (24.2-36.6) Sec. CBC 03/21/19 Range/Units 23:42 WBC 10.6 (4.5-11.0) K/mm3 RBC 4.57 (3.65-5.03) M/mm3 Hgb 14.9 (11.8-15.2) gm/dl Hct 43.3 (35.5-45.6) % Plt Count 195 (140-440) K/mm3 Lymph # 2.8 (1.2-5.4) K/mm3 [place] # 0.6 (0.0-0.8) K/mm3 Eos # 1.1 H (0.0-0.4) K/mm3 Baso # 0.1 (0.0-0.1) K/mm3 Comprehensive Metabolic Panel 03/21/19 Range/Units 23:42 Sodium 139 (137-145) mmol/L Potassium 3.5 L (3.6-5.0) mmol/L Chloride 100.7 (98-107) mmol/L Carbon Dioxide 25 (22-30) mmol/L BUN 11 (9-20) mg/dL Creatinine 0.8 (0.8-1.5) mg/dL Glucose 123 H (75-100) mg/dL Calcium 8.6 (8.4-10.2) mg/dL Assessment and Plan Chest pain, atypical ECG was normal sinus rhythm, with no ST or T-wave abnormalities. Troponin measurements are normal Hx of coronary artery disease s/p coronary stent placement to the LAD 12/2018, with a 5.0 mm bare-metal stent. Ischemic cardiomyopathy ejection fraction 30-35%. Hypertension
[2019-03-22 12:39] LABS: Creatine Kinase MB 1.6 ng/mL (0.0-4.0)
[2019-03-22 17:11] VITALS: BP 126/69
== END 2019-03-22 19:00 | disposition left against medical advice (07) ==
LOC: ED 21:46 → 4A 03-22 03:53
PROVIDERS: ADMIT Internal Medicine; ATTEND Hospitalist
DX: R07.89 Other chest pain (principal); I20.0 Unstable angina; I11.0 Hypertensive heart disease with heart failure; I50.9 Heart failure, unspecified; R56.9 Unspecified convulsions; G47.30 Sleep apnea, unspecified; F17.200 Nicotine dependence, unspecified, uncomplicated; Z95.1 Presence of aortocoronary bypass graft; Z79.82 Long term (current) use of aspirin; Z86.73 Personal history of transient ischemic attack (TIA), and cerebral infarction without residual deficits
CPT/HCPCS: 36415; 71046; 80048; 80307; 81001; 82550; 82553; 83690; 84484; 85025; 85379; 85610; 85730; 93005; 93010; 96372; 96374; 96376; 99291; 99406; G0378; J1644; J2270

== ENCOUNTER 2019-03-22 19:49 | Emergency (ER) | payer MEDICARE ==
--- NOTE | 2019-03-22 20:42 | Emergency Department Report ---
Blank Doc - Documentation Documentation: 53-year-old male that was admitted for chest pains left AMA and came back today for worse CP and SOB. This initial assessment/diagnostic orders/clinical plan/treatment(s) is/are subject to change based on patient's health status, clinical progression and re- assessment by fellow clinical providers in the ED. Further treatment and workup at subsequent clinical providers discretion. Patient/guardians urged not to elope from the ED as their condition may be serious if not clinically assessed and managed. Initial orders include: 1- Patient sent to MAIN ED for further evaluation and treatment 2- labs 3- EKG 4- CXR
[2019-03-22 21:08] LABS: Basophils # (Auto) 0.1 K/mm3 (0.0-0.1); Basophils % (Auto) 1.1 % (0.0-1.8); Hematocrit 44.5 % (35.5-45.6); Hemoglobin 15.5 gm/dl (11.8-15.2); Lymphocytes # (Auto) 2.4 K/mm3 (1.2-5.4); Lymphocytes % (Auto) 26.1 % (13.4-35.0); Mean Corpuscular HGB Conc 35 % (32-34); Mean Corpuscular Volume 94 fl (84-94); Monocytes # (Auto) 0.7 K/mm3 (0.0-0.8); Monocytes % (Auto) 8.1 % (0.0-7.3); Platelet Count 210 K/mm3 (140-440); Red Blood Count 4.72 M/mm3 (3.65-5.03); Red Cell Distribution Width 14.7 % (13.2-15.2)
[2019-03-22 21:19] LABS: INR 0.93 (0.87-1.13); Partial Thromboplastin Time 24.9 Sec. (24.2-36.6)
[2019-03-22 21:36] LABS: Alanine Aminotransferase 22 units/L (7-56); Albumin 4.3 g/dL (3.9-5); BUN/Creatinine Ratio 13; Blood Urea Nitrogen 12 mg/dL (9-20); Calcium 8.7 mg/dL (8.4-10.2); Hemolysis Index 7
[2019-03-22] MEDS ORDERED: BABY ASPIRIN PO ONE (22:06)
[2019-03-22] MEDS ORDERED: NITROSTAT SL ONE (22:06)
[2019-03-22] MEDS ORDERED: ATIVAN PO ONE (22:07)
--- NOTE | 2019-03-22 22:18 | Emergency Department Report ---
ED Chest Pain HPI - General Chief Complaint: Chest Pain Stated Complaint: CHEST PAIN Time Seen by Provider: 03/22/19 20:39 Source: patient Mode of arrival: Ambulatory Limitations: No Limitations - History of Present Illness Initial Comments: Mr. Alvarado is a 53 yo male with hx of CVA, CAD, HTN, Bipolar, Anxiety, sleep apnea who presents with central chest pain with shortness of breath for the past hour. Mr. Alvarado was seen in the ED and admitted to hospital last night. Left the hospitalist service AMA. According to EMR, Mr. Alvarado has been admitted 5 times within the last 2 months for chest pain and shortness of breath. On January 26, cardiac catheterization and anioplasty was performed. Mid LAD stent placed 85% stenosis. Nondominant RCA 80% stenosis. EF 30-35%. Conservative medical management recommended for RCA lesion. According to cardiolgy w/u performed today by Dr. Nuñez, no further cardiac w/u indicated. Recommended to continue aggressivve medical therapy with dual oral antiplatelet therapy with Plavix and optimiaze antianginal therapy for chronic angina pectoris. MD Complaint: chest pain -: Gradual, hour(s) (1) Onset: during rest Pain Location: substernal Pain Radiation: RUE Severity: severe Severity scale (0 -10): 7 Quality: tightness, heaviness Consistency: constant Improves With: nothing Worsens With: nothing Context: other (recent hospitalizations) re: denies: nausea, vomting Other Symptoms: denies: cough, fever, syncope, rash, acid taste in mouth, leg swelling, palpitations, burping - Related Data Previous Rx's Medication Instructions Recorded Last Taken Type Aspirin EC [Halfprin EC] 81 mg PO QDAY #30 tablet. 01/27/19 Unknown Rx ISOSORBIDE MONOnitrate [Imdur ER] 30 mg PO QDAY #30 tablet 01/29/19 Unknown Rx Aspirin 325 mg PO QDAY #100 tablet 03/21/19 Unknown Rx AtorvaSTATin [Lipitor] 40 mg PO QHS #30 tablet 03/21/19 Unknown Rx Carvedilol [Coreg] 3.125 mg PO BID #60 tablet 03/21/19 Unknown Rx Clopidogrel [Plavix] 75 mg PO QDAY #30 tablet 03/21/19 Unknown Rx Furosemide [Lasix TAB] 20 mg PO QDAY #30 tablet 03/21/19 Unknown Rx Lansoprazole [Prevacid] 15 mg PO BID #30 cap 03/21/19 Unknown Rx Lisinopril [Zestril TAB] 5 mg PO QDAY #30 tablet 03/21/19 Unknown Rx Nicotine [Habitrol] 14 mg TD QDAY #14 patch 03/21/19 Unknown Rx Oxycodone HCl/Acetaminophen 1 each PO Q12H PRN #14 tablet 03/21/19 Unknown Rx [Percocet 7.5/325 mg] Pantoprazole [Protonix TAB] 20 mg PO QDAY #30 tablet. 03/21/19 Unknown Rx QUEtiapine [SEROquel] 400 mg PO QHS #30 tablet 03/21/19 Unknown Rx Ranolazine ER [Ranexa ER] 500 mg PO BID #60 tablet 03/21/19 Unknown Rx Allergies Allergy/AdvReac Type Severity Reaction Status Date / Time chlorpromazine Allergy Seizure Verified 04/18/17 15:47 [From Thorazine] phenobarbital Allergy Seizure Verified 04/18/17 15:47 phenytoin [From Dilantin] Allergy Seizure Verified 04/18/17 15:47 Heart Score - HEART Score History: Slightly suspicious EKG: Non-specific Age: 45-65 Risk factors: > 3 risk factors or hx of atherosclerotic disease Troponin: < normal limit HEART Score: 4 ED Review of Systems ROS: Stated complaint: CHEST PAIN Other details as noted in HPI Comment: All other systems reviewed and negative Constitutional: denies: chills, fever, malaise Respiratory: shortness of breath. denies: cough Cardiovascular: chest pain ED Past Medical Hx - Past Medical History Previous Medical History?: Yes Hx Hypertension: Yes Hx CVA: Yes (right arm weakness) Hx Heart Attack/AMI: Yes Hx Congestive Heart Failure: Yes Hx Diabetes: No Hx Deep Vein Thrombosis: No Hx Pulmonary Embolism: No Hx GERD: No Hx Liver Disease: No Hx Renal Disease: No Hx Sickle Cell Disease: No Hx Arthritis: No Hx Headaches / Migraines: No Hx Seizures: Yes Hx Kidney Stones: No Hx Psychiatric Treatment: Yes (BIPOLAR AND ANXIETY) Hx Asthma: No Hx COPD: No Hx Tuberculosis: No Hx Dementia: No Hx HIV: No Additional medical history: Sleep Apnea,facial droop r/t jaw surgery 11/2017, PVC'S - Surgical History Past Surgical History?: Yes Hx Coronary Stent: Yes Hx Open Heart Surgery: No Hx Pacemaker: No Hx Internal Defibrillator: No Hx Cholecystectomy: No Hx Appendectomy: No Hx Breast Surgery: No Additional Surgical History: Lower Back, jaw 2018. Right Hip, stent placed - Social History Smoking Status: Current Some Day Smoker - Medications Home Medications: Home Medications Medication Instructions Recorded Confirmed Last Taken Type Aspirin EC [Halfprin EC] 81 mg PO QDAY #30 tablet. 01/27/19 03/21/19 Unknown Rx ISOSORBIDE MONOnitrate [Imdur ER] 30 mg PO QDAY #30 tablet 01/29/19 03/21/19 Unknown Rx Aspirin 325 mg PO QDAY #100 tablet 03/21/19 Unknown Rx AtorvaSTATin [Lipitor] 40 mg PO QHS #30 tablet 03/21/19 Unknown Rx Carvedilol [Coreg] 3.125 mg PO BID #60 tablet 03/21/19 Unknown Rx Clopidogrel [Plavix] 75 mg PO QDAY #30 tablet 03/21/19 Unknown Rx Furosemide [Lasix TAB] 20 mg PO QDAY #30 tablet 03/21/19 Unknown Rx Lansoprazole [Prevacid] 15 mg PO BID #30 cap 03/21/19 Unknown Rx Lisinopril [Zestril TAB] 5 mg PO QDAY #30 tablet 03/21/19 Unknown Rx Nicotine [Habitrol] 14 mg TD QDAY #14 patch 03/21/19 Unknown Rx Oxycodone HCl/Acetaminophen 1 each PO Q12H PRN #14 tablet 03/21/19 Unknown Rx [Percocet 7.5/325 mg] Pantoprazole [Protonix TAB] 20 mg PO QDAY #30 tablet. 03/21/19 Unknown Rx QUEtiapine [SEROquel] 400 mg PO QHS #30 tablet 03/21/19 Unknown Rx Ranolazine ER [Ranexa ER] 500 mg PO BID #60 tablet 03/21/19 Unknown Rx ED Physical Exam - General Limitations: No Limitations General appearance: alert, in no apparent distress, other (appears comfortable no acute distress) - Head Head exam: Present: atraumatic, normocephalic - Eye Eye exam: Present: normal appearance - ENT ENT exam: Present: mucous membranes moist - Neck Neck exam: Present: normal inspection - Respiratory Respiratory exam: Present: normal lung sounds bilaterally. Absent: respiratory distress, wheezes, rales - Cardiovascular Cardiovascular Exam: Present: regular rate, normal rhythm, normal heart sounds. Absent: systolic murmur, diastolic murmur, rubs, gallop - GI/Abdominal GI/Abdominal exam: Present: soft, normal bowel sounds. Absent: distended, tenderness, guarding, rebound - Rectal Rectal exam: Present: deferred - Extremities Exam Extremities exam: Present: normal inspection - Back Exam Back exam: Present: normal inspection - Neurological Exam Neurological exam: Present: alert, oriented X3 - Psychiatric Psychiatric exam: Present: normal affect, normal mood - Skin Skin exam: Present: warm, dry, intact, normal color. Absent: rash ED Course Vital Signs 03/22/19 03/22/19 03/22/19 20:13 22:18 22:19 Temperature 98.7 F Pulse Rate 51 L 83 76 Respiratory 12 17 Rate Blood Pressure 140/80 129/80 Blood Pressure 129/80 [Left] O2 Sat by Pulse 94 97 Oximetry SHILOH score - Shiloh Score Age > 65: (0) No Aspirin use within the Past 7 Days: (1) Yes 3 or more CAD Risk Factors: (1) Yes 2 or more Angina events in past 24 hrs: (1) Yes Known CAD with more than 50% Stenosis: (1) Yes Elevated Cardiac Markers: (0) No ST Deviation Greater than 0.5mm: (0) No SHILOH Score: 4 ED Medical Decision Making - Lab Data Result diagrams: 03/22/19 20:50 03/22/19 20:50 Laboratory Results - last 24 hr 03/22/19 03/22/19 03/22/19 20:50 20:50 20:50 WBC 9.2 RBC 4.72 Hgb 15.5 H Hct 44.5 MCV 94 MCH 33 H MCHC 35 H RDW 14.7 Plt Count 210 Lymph % (Auto) 26.1 [place] % (Auto) 8.1 H Eos % (Auto) 11.0 H Baso % (Auto) 1.1 Lymph # 2.4 [place] # 0.7 Eos # 1.0 H Baso # 0.1 Seg Neutrophils % 53.7 Seg Neutrophils # 4.9 PT 12.2 INR 0.93 APTT 24.9 Sodium 140 Potassium 3.8 Chloride 102.0 Carbon Dioxide 25 Anion Gap 17 BUN 12 Creatinine 0.9 Estimated GFR > 60 BUN/Creatinine Ratio 13 Glucose 98 Calcium 8.7 Magnesium 2.20 Total Bilirubin 0.40 AST 16 ALT 22 Alkaline Phosphatase 94 Troponin T < 0.010 Total Protein 7.2 Albumin 4.3 Albumin/Globulin Ratio 1.5 Laboratory Results - last 24 hr 03/22/19 03/22/19 03/22/19 20:50 20:50 20:50 WBC 9.2 RBC 4.72 Hgb 15.5 H Hct 44.5 MCV 94 MCH 33 H MCHC 35 H RDW 14.7 Plt Count 210 Lymph % (Auto) 26.1 [place] % (Auto) 8.1 H Eos % (Auto) 11.0 H Baso % (Auto) 1.1 Lymph # 2.4 [place] # 0.7 Eos # 1.0 H Baso # 0.1 Seg Neutrophils % 53.7 Seg Neutrophils # 4.9 PT 12.2 INR 0.93 APTT 24.9 Sodium 140 Potassium 3.8 Chloride 102.0 Carbon Dioxide 25 Anion Gap 17 BUN 12 Creatinine 0.9 Estimated GFR > 60 BUN/Creatinine Ratio 13 Glucose 98 Calcium 8.7 Magnesium 2.20 Total Bilirubin 0.40 AST 16 ALT 22 Alkaline Phosphatase 94 Troponin T < 0.010 Total Protein 7.2 Albumin 4.3 Albumin/Globulin Ratio 1.5 03/22/19 Unknown WBC RBC Hgb Hct MCV MCH MCHC RDW Plt Count Lymph % (Auto) [place] % (Auto) Eos % (Auto) Baso % (Auto) Lymph # [place] # Eos # Baso # Seg Neutrophils % Seg Neutrophils # PT INR APTT Sodium Potassium Chloride Carbon Dioxide Anion Gap BUN Creatinine Estimated GFR BUN/Creatinine Ratio Glucose Calcium Magnesium Total Bilirubin AST ALT Alkaline Phosphatase Troponin T < 0.010 Total Protein Albumin Albumin/Globulin Ratio - EKG Data 03/22/19 22:15 EKG obtained 2020 Normal sinus rhythm rate 90 beats a minute normal axis normal intervals no ST-T signs ischemia positive PVCs EKG unchanged from recent EKG obtained on yesterday 03/21/2019 - Radiology Data Radiology results: report reviewed Chest x-ray no acute findings according to radiology report. - Medical Decision Making Mr. Alvarado presents with chronic anginal pectoris, stable angina. CO has been ruled out with Troponin 2 within normal limits, negative. EKG without ischemic changes. He was referred to record pressman. Mr. Alvarado explained he was given several prescriptions prior to discharge AGAINST MEDICAL ADVICE earlier today. I encouraged him to fill these prescriptions which will address his chest pain. Critical care attestation.: If time is entered above; I have spent that time in minutes in the direct care of this critically ill patient, excluding procedure time. ED Disposition Clinical Impression: Stable angina, Chronic stable angina Disposition: TO HOME OR SELFCARE Is pt being admited?: No Does the pt Need Aspirin: No Condition: Stable Instructions: Angina (ED) Referrals: REGGIE NUÑEZ MD [Staff Physician] - 3-5 Days
[2019-03-22 22:19] VITALS: BP 129/80
--- NOTE | 2019-03-22 22:23 | XRay Report ---
CHEST 1 VIEW INDICATION / CLINICAL INFORMATION: Chest Pain. COMPARISON: 03/21/2019 FINDINGS: SUPPORT DEVICES: None. HEART / MEDIASTINUM: No significant abnormality. 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 No pneumothorax. ADDITIONAL FINDINGS: No significant additional findings. IMPRESSION: 1. 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 Signer Name: Martínez Gonzalez MD Signed: 03/22/2019 10:18 PM Workstation Name: [id number]
== END 2019-03-22 23:54 | disposition home or self-care (01) ==
LOC: ED 19:49
DX: I20.8 Other forms of angina pectoris (principal); I11.0 Hypertensive heart disease with heart failure; I50.9 Heart failure, unspecified; F17.200 Nicotine dependence, unspecified, uncomplicated; I25.2 Old myocardial infarction; F31.9 Bipolar disorder, unspecified; F41.9 Anxiety disorder, unspecified; Z95.5 Presence of coronary angioplasty implant and graft; Z98.890 Other specified postprocedural states; Z88.8 Allergy status to other drugs, medicaments and biological substances
CPT/HCPCS: 36415; 71045; 80053; 83735; 84484; 85025; 85610; 85730; 93005; 93010

== ENCOUNTER 2019-03-23 01:02 | Emergency (ER) | payer MEDICARE ==
--- NOTE | 2019-03-23 01:14 | Emergency Department Report ---
Stated Complaint: CHEST PAIN Time Seen by Provider: 03/23/19 01:09 - HPI History of Present Illness: Mr. Alvarado returns to the ER after contacting EMS from the [facility] pharmacy across the street from the hospital. I discharged home just one hour prior. He has persistent chest pain and desires morphine. He does not have a medical condition which needs further care or treatment. I reviewed recent healthcare social worker note who documented homelessness. He is free to remain in the waiting room. Further care is not indicated at this time. He is discharged after medical screening exam is completed. MSE screening note: Focused history and physical exam performed. Due to findings the following was ordered: ED Disposition for MSE Condition: Stable
== END 2019-03-23 01:59 | disposition left against medical advice (07) ==
LOC: ED 01:02
DX: R07.89 Other chest pain (principal)

== ENCOUNTER 2019-03-23 02:37 | Emergency (ER) | payer MEDICARE ==
--- NOTE | 2019-03-23 03:02 | Emergency Department Report ---
ED Psych HPI - General Stated Complaint: MH EVAL Time Seen by Provider: 03/23/19 02:49 - History of Present Illness Initial Comments: Mr. Alvarado is a 53 yo male with hx of Bipolar disorder, homelessness, CAD s/p angioplasty/stent, dyslipidemia, GERD, tobacc abuse, HTN, chronic stable angina who returns to the ED for the third time within the last 5 hours now for feeling "suicidal". Mr. Alvarado was discharged by this provider twice within the last hour. No plan to harm self. He explains, "you are punishing me for leaving AMA". Complaint: suicidal ideation -: Sudden, This morning Associated Psychiatric Symptoms: suicidal ideation, other (chronic chest pain) History of same: Yes Quality: changing over time, getting worse Improves With: none Worsens With: none Context: significant life stressor (homelessness chronic pain) Associated Symptoms: denies other symptoms Treatments Prior to Arrival: other (several recent hospitalizations for chest pain) If Self Harm: admits thoughts of - Related Data Previous Rx's Medication Instructions Recorded Last Taken Type Aspirin EC [Halfprin EC] 81 mg PO QDAY #30 tablet. 01/27/19 Unknown Rx ISOSORBIDE MONOnitrate [Imdur ER] 30 mg PO QDAY #30 tablet 01/29/19 Unknown Rx Aspirin 325 mg PO QDAY #100 tablet 03/21/19 Unknown Rx AtorvaSTATin [Lipitor] 40 mg PO QHS #30 tablet 03/21/19 Unknown Rx Carvedilol [Coreg] 3.125 mg PO BID #60 tablet 03/21/19 Unknown Rx Clopidogrel [Plavix] 75 mg PO QDAY #30 tablet 03/21/19 Unknown Rx Furosemide [Lasix TAB] 20 mg PO QDAY #30 tablet 03/21/19 Unknown Rx Lansoprazole [Prevacid] 15 mg PO BID #30 cap 03/21/19 Unknown Rx Lisinopril [Zestril TAB] 5 mg PO QDAY #30 tablet 03/21/19 Unknown Rx Nicotine [Habitrol] 14 mg TD QDAY #14 patch 03/21/19 Unknown Rx Oxycodone HCl/Acetaminophen 1 each PO Q12H PRN #14 tablet 03/21/19 Unknown Rx [Percocet 7.5/325 mg] Pantoprazole [Protonix TAB] 20 mg PO QDAY #30 tablet. 03/21/19 Unknown Rx QUEtiapine [SEROquel] 400 mg PO QHS #30 tablet 03/21/19 Unknown Rx Ranolazine ER [Ranexa ER] 500 mg PO BID #60 tablet 03/21/19 Unknown Rx Allergies Allergy/AdvReac Type Severity Reaction Status Date / Time chlorpromazine Allergy Seizure Verified 04/18/17 15:47 [From Thorazine] phenobarbital Allergy Seizure Verified 04/18/17 15:47 phenytoin [From Dilantin] Allergy Seizure Verified 04/18/17 15:47 ED Review of Systems ROS: Stated complaint: MH EVAL Other details as noted in HPI Comment: All other systems reviewed and negative Constitutional: denies: fever, malaise Respiratory: denies: cough, shortness of breath Cardiovascular: chest pain Psychiatric: depression, suicidal thoughts. denies: anxiety ED Past Medical Hx - Past Medical History Previous Medical History?: Yes Hx Hypertension: Yes Hx CVA: Yes (right arm weakness) Hx Heart Attack/AMI: Yes Hx Congestive Heart Failure: Yes Hx Diabetes: No Hx Deep Vein Thrombosis: No Hx Pulmonary Embolism: No Hx GERD: No Hx Liver Disease: No Hx Renal Disease: No Hx Sickle Cell Disease: No Hx Arthritis: No Hx Headaches / Migraines: No Hx Seizures: Yes Hx Kidney Stones: No Hx Psychiatric Treatment: Yes (BIPOLAR AND ANXIETY) Hx Asthma: No Hx COPD: No Hx Tuberculosis: No Hx Dementia: No Hx HIV: No Additional medical history: Sleep Apnea,facial droop r/t jaw surgery 11/2017, PVC'S - Surgical History Hx Coronary Stent: Yes Hx Open Heart Surgery: No Hx Pacemaker: No Hx Internal Defibrillator: No Hx Cholecystectomy: No Hx Appendectomy: No Hx Breast Surgery: No Additional Surgical History: Lower Back, jaw 2017. Right Hip, stent placed - Social History Smoking Status: Never Smoker - Medications Home Medications: Home Medications Medication Instructions Recorded Confirmed Last Taken Type Aspirin EC [Halfprin EC] 81 mg PO QDAY #30 tablet. 01/27/19 03/21/19 Unknown Rx ISOSORBIDE MONOnitrate [Imdur ER] 30 mg PO QDAY #30 tablet 01/29/19 03/21/19 Unknown Rx Aspirin 325 mg PO QDAY #100 tablet 03/21/19 Unknown Rx AtorvaSTATin [Lipitor] 40 mg PO QHS #30 tablet 03/21/19 Unknown Rx Carvedilol [Coreg] 3.125 mg PO BID #60 tablet 03/21/19 Unknown Rx Clopidogrel [Plavix] 75 mg PO QDAY #30 tablet 03/21/19 Unknown Rx Furosemide [Lasix TAB] 20 mg PO QDAY #30 tablet 03/21/19 Unknown Rx Lansoprazole [Prevacid] 15 mg PO BID #30 cap 03/21/19 Unknown Rx Lisinopril [Zestril TAB] 5 mg PO QDAY #30 tablet 03/21/19 Unknown Rx Nicotine [Habitrol] 14 mg TD QDAY #14 patch 03/21/19 Unknown Rx Oxycodone HCl/Acetaminophen 1 each PO Q12H PRN #14 tablet 03/21/19 Unknown Rx [Percocet 7.5/325 mg] Pantoprazole [Protonix TAB] 20 mg PO QDAY #30 tablet.dr 03/21/19 Unknown Rx QUEtiapine [SEROquel] 400 mg PO QHS #30 tablet 03/21/19 Unknown Rx Ranolazine ER [Ranexa ER] 500 mg PO BID #60 tablet 03/21/19 Unknown Rx ED Physical Exam - General General appearance: alert, in no apparent distress - Head Head exam: Present: atraumatic, normocephalic - Eye Eye exam: Present: normal appearance - ENT ENT exam: Present: mucous membranes moist - Neck Neck exam: Present: normal inspection, full ROM - Respiratory Respiratory exam: Present: normal lung sounds bilaterally. Absent: respiratory distress, wheezes, rales, rhonchi - Cardiovascular Cardiovascular Exam: Present: regular rate, normal rhythm, normal heart sounds. Absent: systolic murmur, diastolic murmur, rubs, gallop - GI/Abdominal GI/Abdominal exam: Present: soft, normal bowel sounds. Absent: distended, tenderness, guarding, rebound - Extremities Exam Extremities exam: Present: normal inspection - Back Exam Back exam: Present: normal inspection - Neurological Exam Neurological exam: Present: alert, oriented X3 - Psychiatric Psychiatric exam: Present: depressed, flat affect, suicidal ideation - Skin Skin exam: Present: warm, dry, intact, normal color. Absent: rash ED Course Vital Signs 03/23/19 03:02 Temperature 98.1 F Pulse Rate 50 L Respiratory 18 Rate Blood Pressure 126/64 [Left] O2 Sat by Pulse 96 Oximetry ED Medical Decision Making - Medical Decision Making Mr. Alvarado has presented 3 times to the ED within the last 2 hours. The last 2 instances he has called [address] [facility] pharmacy across the street from the hospital. Mr. Alvarado has stable angina at rest with GERD. Previously requested morphine from EMS for chest pain. This chest pain does not constitute an acute cardiac event. He has had thorough chest pain evaluations with a total of 5 hospital admissions within the last 2 months. He has been cleared by manager ui. Unfortunately, Mr. Alvarado presents with manipulative behavior. His behavior is suspicious for malingering for secondary gain. He left against medical advice after hospital admission on yesterday. He is currently medically clear for psychiatric care. I have ordered his home medications which should address the chronic angina. I have not place Mr. Alvarado on involuntary hold. He does not have a plan to harm himself. His actions reveal a yearning for medical attention. Awaiting psychiatric and case management consultations. Critical care attestation.: If time is entered above; I have spent that time in minutes in the direct care of this critically ill patient, excluding procedure time. ED Disposition Clinical Impression: Chronic stable angina, Suicidal ideation, Bipolar 1 disorder Condition: Stable Instructions: Angina (ED)
[2019-03-23 03:34] LABS: Basophils # (Auto) 0.1 K/mm3 (0.0-0.1); Basophils % (Auto) 1.2 % (0.0-1.8); Eosinophils % (Auto) 10.4 % (0.0-4.3); Hematocrit 45.5 % (35.5-45.6); Hemoglobin 15.8 gm/dl (11.8-15.2); Lymphocytes # (Auto) 2.3 K/mm3 (1.2-5.4); Lymphocytes % (Auto) 24.9 % (13.4-35.0); Mean Corpuscular HGB Conc 35 % (32-34); Mean Corpuscular Volume 94 fl (84-94); Monocytes # (Auto) 0.7 K/mm3 (0.0-0.8); Monocytes % (Auto) 7.1 % (0.0-7.3); Platelet Count 219 K/mm3 (140-440); Red Blood Count 4.85 M/mm3 (3.65-5.03); Red Cell Distribution Width 14.6 % (13.2-15.2)
[2019-03-23 03:43] LABS: Alanine Aminotransferase 23 units/L (7-56); Albumin 4.5 g/dL (3.9-5); BUN/Creatinine Ratio 15; Blood Urea Nitrogen 12 mg/dL (9-20); Calcium 8.8 mg/dL (8.4-10.2); Hemolysis Index 6
[2019-03-23] MEDS ORDERED: ZESTRIL PO ONE (03:52)
[2019-03-23] MEDS ORDERED: HABITROL TD ONE (04:10)
--- NOTE | 2019-03-23 09:35 | Consultation ---
History of Present Illness - Reason for Consult Consult date: 03/23/19 Reason for consult: Mental Health Evaluation Requesting physician: COLT HINES - Chief Complaint Chief complaint: "I am okay" - History of Present Psychiatric Illness 53 y.o. white male who presented to the ER for chest pain and SI's. Today the patient was calm and cooperative during the assessment. The patient came to the ER several times yesterday for chest pain that was ruled out. On his last ER visit, the patient endorsed SI's without a plan. I the provider spoke with the patient, he stated that he wasn't suicidal. He stated, "I need a physical address to receive my debit card in the mail." He stated that he gestured SI's so he could possibly be placed back into a mental facility so he can order his debit card. The patient was successfully discharged form the [facility] recently. Initially the patient ordered his debit card, but it was returned to sender by the [facility] staff. The patient's belongings and prescriptions are still at [facility] per the patient. He was advised that he can have his bank card mailed to [facility], the staff ([facility]) is aware and he can pick it up once the card arrive, he verbalized understanding. The patient denies SI/HI's and AVH's. He denies erratic sleep and alcohol consumption (etoh). Medications and Allergies Allergies Allergy/AdvReac Type Severity Reaction Status Date / Time chlorpromazine Allergy Seizure Verified 04/18/17 15:47 [From Thorazine] phenobarbital Allergy Seizure Verified 04/18/17 15:47 phenytoin [From Dilantin] Allergy Seizure Verified 04/18/17 15:47 Home Medications Medication Instructions Recorded Confirmed Last Taken Type Aspirin EC [Halfprin EC] 81 mg PO QDAY #30 tablet. 01/27/19 03/23/19 Unknown Rx ISOSORBIDE MONOnitrate [Imdur ER] 30 mg PO QDAY #30 tablet 01/29/19 03/23/19 Unknown Rx Aspirin 325 mg PO QDAY #100 tablet 03/21/19 03/23/19 Unknown Rx AtorvaSTATin [Lipitor] 40 mg PO QHS #30 tablet 03/21/19 03/23/19 Unknown Rx Carvedilol [Coreg] 3.125 mg PO BID #60 tablet 03/21/19 03/23/19 Unknown Rx Clopidogrel [Plavix] 75 mg PO QDAY #30 tablet 03/21/19 03/23/19 Unknown Rx Furosemide [Lasix TAB] 20 mg PO QDAY #30 tablet 03/21/19 03/23/19 Unknown Rx Lansoprazole [Prevacid] 15 mg PO BID #30 cap 03/21/19 03/23/19 Unknown Rx Lisinopril [Zestril TAB] 5 mg PO QDAY #30 tablet 03/21/19 03/23/19 Unknown Rx Nicotine [Habitrol] 14 mg TD QDAY #14 patch 03/21/19 03/23/19 Unknown Rx Oxycodone HCl/Acetaminophen 1 each PO Q12H PRN #14 tablet 03/21/19 03/23/19 Unknown Rx [Percocet 7.5/325 mg] Pantoprazole [Protonix TAB] 20 mg PO QDAY #30 tablet. 03/21/19 03/23/19 Unknown Rx QUEtiapine [SEROquel] 400 mg PO QHS #30 tablet 03/21/19 03/23/19 Unknown Rx Ranolazine ER [Ranexa ER] 500 mg PO BID #60 tablet 03/21/19 03/23/19 Unknown Rx Active Meds: Active Medications Aspirin (Aspirin) 325 mg PO QDAY SONJA Atorvastatin Calcium (Lipitor) 40 mg PO QHS SONJA Carvedilol (Coreg) 3.125 mg PO BID SONJA Clopidogrel Bisulfate (Plavix) 75 mg PO DAILY SONJA Furosemide (Lasix) 20 mg PO DAILY SONJA Isosorbide Mononitrate (Imdur) 30 mg PO QDAY SONJA Pantoprazole Sodium (Protonix) 20 mg PO QDAY SONJA Past psychiatric history - Past Medical History Past Medical History: No medical history Past Surgical History: No surgical history - past Psychiatric treatment and history psychiatric treatment history: PHP at [facility] recently. Denies a fam psy hx. - Social History Social history: other (Homeless) Mental Status Exam - Vital signs Last Vital Signs Temp 98.1 F 03/23/19 03:02 Pulse 50 L 03/23/19 03:02 Resp 18 03/23/19 03:02 BP 126/64 03/23/19 03:02 Pulse Ox 96 03/23/19 03:02 - Exam Narrative exam: MSE: Appearance: calm, cooperative Behavior: regular eye contact Speech: regular rate and tone Mood: "okay" Affect: congruent to mood Thought Process: linear Thought Content: denies SI/HI's and AVH's Motor Activity: lying in bed Cognition: A/O x 3 Insight: fair Judgment: fair Results Result Diagrams: 03/23/19 03:05 03/23/19 03:05 Abnormal lab results 03/23/19 03/23/19 03/23/19 Range/Units 03:05 03:05 03:05 Hgb 15.8 H (11.8-15.2) gm/dl MCH 33 H (28-32) pg MCHC 35 H (32-34) % Eos % (Auto) 10.4 H (0.0-4.3) % Eos # 1.0 H (0.0-0.4) K/mm3 Salicylates 0.3 L (2.8-20.0) mg/dL Acetaminophen < 5.0 L (10.0-30.0) ug/mL All other labs normal. Assessment and Plan Assessment and plan: Impression: Today the patient was calm and cooperative during the assessment. The patient is no threat to self. 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, he verbalized understanding. Case Mgmt involvement, the patient may need assistance with placement. Dipso: The patient can follow up with [facility] for outpatient psy services. Staffed with Dr Patrizia Sloan.
[2019-03-23] MEDS ORDERED: ASPIRIN PO SCH (10:00)
[2019-03-23] MEDS ORDERED: IMDUR PO SCH (10:00)
[2019-03-23] MEDS ORDERED: PROTONIX PO SCH (10:00)
[2019-03-23] MEDS ORDERED: LASIX PO SCH (10:00)
[2019-03-23] MEDS ORDERED: COREG PO SCH (10:00)
[2019-03-23] MEDS ORDERED: PLAVIX PO SCH (10:00)
[2019-03-23 10:57] VITALS: BP 133/98
== END 2019-03-23 16:16 | disposition home or self-care (01) ==
LOC: EEVIPCON 02:37 → ED 02:37
DX: I20.8 Other forms of angina pectoris (principal); R45.851 Suicidal ideations; F31.9 Bipolar disorder, unspecified; I11.0 Hypertensive heart disease with heart failure; I50.9 Heart failure, unspecified; I25.2 Old myocardial infarction; F41.9 Anxiety disorder, unspecified; G47.30 Sleep apnea, unspecified; Z98.890 Other specified postprocedural states; Z86.73 Personal history of transient ischemic attack (TIA), and cerebral infarction without residual deficits; Z95.5 Presence of coronary angioplasty implant and graft; Z79.899 Other long term (current) drug therapy; Z88.8 Allergy status to other drugs, medicaments and biological substances
CPT/HCPCS: 36415; 80053; 80320; 85025; G0480

== ENCOUNTER 2019-08-18 10:38 | Emergency (ER) | payer MEDICARE, OTHER ==
[2019-08-18] MEDS ORDERED: LORazepam 2 MG/ML VIAL IM PRN (11:29)
[2019-08-18] MEDS ORDERED: HALOPERIDOL LACTATE 5 MG/1 ML INJ IM PRN (11:29)
[2019-08-18] MEDS ORDERED: NON-FORMULARY EACH (Nitroglycerin 0.4 MG) SUBLINGUAL PRN (11:30)
--- NOTE | 2019-08-18 11:31 | Emergency Department Report ---
ED General Adult HPI - General Chief complaint: Psych Stated complaint: SI IDEATION Time Seen by Provider: 08/18/19 11:19 Source: patient, EMS ( EMS documentation not available at time of chart dictation ), RN notes reviewed, old records reviewed Mode of arrival: Ambulatory Limitations: No Limitations - History of Present Illness Initial comments: Patient is a 53-year-old gentleman. 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 Savannah Gonzalez, and Dr. Grider Both documented medical therapy is a recommendation for chronic angina pectoris, and also get documented "no further cardiac work-up is indicated." It was also recommended that the patient continue aggressive medical therapy, including dual oral antiplatelet therapy with Plavix. Today, the patient presents to the ER with multiple complaints. His first complaint is suicidality. He states that he tried to overdose yesterday on his Seroquel. He states that he took 6 tablets of Seroquel last night, unknown time of ingestion, he reports that these were 100 mg. He reports that he did not have any coingestions. He came to the ER today because "I was scared." There is no complaint of homicidality, And he denies intentional overdose today. He also complains of chronic central chest pressure. The pressure is present for months. It does not radiate to the back, arms or neck. He does not endorse vomiting, diaphoresis or new/different exertional shortness of breath. He does not endorse DVT or pulmonary embolism risk factors. Of note, the patient has presented multiple times after his cardiac catheterization for chronic chest pain. -: Gradual Radiation: other Severity scale (0 -10): 6 Quality: other Consistency: other Improves with: other Worsens with: other Associated Symptoms: other - Related Data Home Medications Medication Instructions Recorded Confirmed Last Taken Aspirin [Aspirin BABY CHEW TAB] 81 mg PO QDAY 08/18/19 08/19/19 08/17/19 Atorvastatin Calcium [Lipitor] 80 mg PO QHS 08/18/19 08/19/19 08/17/19 Clopidogrel [Plavix] 75 mg PO QDAY 08/18/19 08/19/19 08/17/19 Folic Acid 1 mg PO DAILY 08/18/19 08/19/19 08/17/19 Nitroglycerin 0.4 mg SUBLINGUAL PRN PRN 08/18/19 08/19/19 Unknown QUEtiapine [SEROquel] 100 mg PO BID 08/18/19 08/19/19 08/17/19 carvediloL [Coreg] 6.25 mg PO BID 08/18/19 08/19/19 08/17/19 Pepcid 20 mg PO BID 08/19/19 08/19/19 Unknown Allergies Allergy/AdvReac Type Severity Reaction Status Date / Time chlorpromazine Allergy Seizure Verified 08/18/19 11:03 [From Thorazine] phenobarbital Allergy Seizure Verified 08/18/19 11:03 phenytoin [From Dilantin] Allergy Seizure Verified 08/18/19 11:03 ED Review of Systems ROS: Stated complaint: SI IDEATION Other details as noted in HPI Constitutional: denies: fever Eyes: denies: eye discharge ENT: denies: congestion Cardiovascular: chest pain Gastrointestinal: denies: nausea, vomiting Genitourinary: as per HPI Musculoskeletal: as per HPI Skin: as per HPI Neurological: as per HPI Psychiatric: as per HPI, suicidal thoughts ED Past Medical Hx - Past Medical History Hx Hypertension: Yes Hx CVA: Yes (right arm weakness) Hx Heart Attack/AMI: Yes Hx Congestive Heart Failure: Yes Hx Diabetes: No Hx Deep Vein Thrombosis: No Hx Pulmonary Embolism: No Hx GERD: No Hx Liver Disease: No Hx Renal Disease: No Hx Sickle Cell Disease: No Hx Arthritis: No Hx Headaches / Migraines: No Hx Seizures: Yes Hx Kidney Stones: No Hx Psychiatric Treatment: Yes (BIPOLAR AND ANXIETY) Hx Asthma: No Hx COPD: No Hx Tuberculosis: No Hx Dementia: No Hx HIV: No Additional medical history: Sleep Apnea,facial droop r/t jaw surgery 11/2017, PVC'S - Surgical History Hx Coronary Stent: Yes Hx Open Heart Surgery: No Hx Pacemaker: No Hx Internal Defibrillator: No Hx Cholecystectomy: No Hx Appendectomy: No Hx Breast Surgery: No Additional Surgical History: Lower Back, jaw 2017. Right Hip, stent placed - Social History Smoking Status: Current Every Day Smoker - Medications Home Medications: Home Medications Medication Instructions Recorded Confirmed Last Taken Type Aspirin [Aspirin BABY CHEW TAB] 81 mg PO QDAY 08/18/19 08/19/19 08/17/19 History Atorvastatin Calcium [Lipitor] 80 mg PO QHS 08/18/19 08/19/19 08/17/19 History Clopidogrel [Plavix] 75 mg PO QDAY 08/18/19 08/19/19 08/17/19 History Folic Acid 1 mg PO DAILY 08/18/19 08/19/19 08/17/19 History Nitroglycerin 0.4 mg SUBLINGUAL PRN PRN 08/18/19 08/19/19 Unknown History QUEtiapine [SEROquel] 100 mg PO BID 08/18/19 08/19/19 08/17/19 History carvediloL [Coreg] 6.25 mg PO BID 08/18/19 08/19/19 08/17/19 History Pepcid 20 mg PO BID 08/19/19 08/19/19 Unknown History ED Physical Exam - General Limitations: No Limitations General appearance: alert, in no apparent distress - Head Head exam: Present: atraumatic, normocephalic - Eye Eye exam: Present: normal appearance, EOMI. Absent: nystagmus - ENT ENT exam: Present: normal exam, normal orophraynx, mucous membranes moist, normal external ear exam - Neck Neck exam: Present: normal inspection, full ROM. Absent: tenderness, meningismus - Respiratory Respiratory exam: Present: normal lung sounds bilaterally. Absent: respiratory distress - Cardiovascular Cardiovascular Exam: Present: regular rate, normal rhythm, normal heart sounds. Absent: bradycardia, tachycardia, irregular rhythm, systolic murmur, diastolic murmur, rubs, gallop - GI/Abdominal GI/Abdominal exam: Present: soft. Absent: distended, tenderness, guarding, rebound, rigid, pulsatile mass - Rectal Rectal exam: Present: deferred - Extremities Exam Extremities exam: Present: normal inspection, full ROM, other (2+ pulses noted in the bilateral upper and lower extremities. There is no palpable cord. negative Homans sign. Muscular compartments are soft. The pelvis is stable.). Absent: pedal edema, calf tenderness - Back Exam Back exam: Present: normal inspection, full ROM. Absent: tenderness, CVA tenderness (R), CVA tenderness (L), paraspinal tenderness, vertebral tenderness - Neurological Exam Neurological exam: Present: alert, oriented X3, normal gait, other (There is no facial droop. The tongue is midline. Extraocular movements are intact bilaterally. There is 5 out of 5 strength in bilateral upper and lower extremities. Sensation is intact to light touch bilateral upper and lower extremities. There is a normal gait.). Absent: motor sensory deficit - Psychiatric Psychiatric exam: Present: suicidal ideation - Skin Skin exam: Present: warm, dry, intact, normal color. Absent: rash ED Course Vital Signs 08/18/19 08/18/19 08/18/19 11:03 11:52 13:22 Temperature 98.6 F Pulse Rate 87 89 82 Respiratory 20 10 L Rate Blood Pressure 136/91 130/78 Blood Pressure 123/80 [Right] O2 Sat by Pulse 95 95 Oximetry 08/18/19 08/18/19 08/18/19 20:00 23:18 23:19 Temperature 98.0 F Pulse Rate 78 85 79 Respiratory 18 12 Rate Blood Pressure 123/72 Blood Pressure 133/91 123/72 [Right] O2 Sat by Pulse 98 97 Oximetry 08/19/19 08/19/19 01:00 02:32 Temperature 97.9 F Pulse Rate 70 68 Respiratory 17 15 Rate Blood Pressure Blood Pressure 107/62 133/95 [Right] O2 Sat by Pulse 96 97 Oximetry - Reevaluation(s) Reevaluation #1: 08/18/19 12:19 Differential diagnosis, including but not limited to: Suicidality, mood disorder, overdose, chronic chest pain, medical clearance for psychiatric placement, malingering, secondary gain Assessment and plan: 53-year-old gentleman with 2 complaints Complaints #1, suicidality. ER hold ordered. Psychiatric consultation ordered. Screening laboratory studies ordered. Patient will be placed on a surveillance system monitor. We will discuss with Poison Control Center once initial diagnostics have resulted. Anticipate need to monitor patient anywhere from 2 to 4 hours. Complaints #2, chronic chest pain EKG unchanged from prior. Patient has chronic chest pain. Troponin negative x1. Cardiovascular risk factor profile is reviewed and appreciated, however, given his prior assessments, chronicity of symptoms, unchanged EKG, benign clinical appearance, it is unlikely that the patient would benefit from hospitalization for accelerated cardiac re-stratification. We will continue his current outpatient medications. 08/18/19 12:29 Reevaluation #2: 08/18/19 14:03 Contacted [place] poison control center, and discussed the case with the shared services representative, Ms. Alberto. Since we do not know exact time of ingestion, Poison Control Center does recommend 6 to 12 hours of medical observation and monitoring from the time of first medical contact. We will therefore observe the patient for this timeframe. Repeat EKG, repeat troponin pending at this time. Reevaluation #3: 08/18/19 14:37 Care will be transferred to the oncoming physician, Dr. Baljinder Chatman, to follow-up on repeat troponin, EKG, and continue cardiac monitoring for 6 to 12 hours from initial presentation. Do not anticipate medical decompensation at this time. ED Medical Decision Making - Lab Data Result diagrams: 08/18/19 11:40 08/18/19 11:40 Vital Signs 08/18/19 08/18/19 11:03 11:52 Temperature 98.6 F Pulse Rate 87 89 Respiratory 20 Rate Blood Pressure 136/91 130/78 O2 Sat by Pulse 95 Oximetry Lab Results 08/18/19 08/18/19 08/18/19 Range/Units 11:33 11:40 11:40 WBC 7.5 (4.5-11.0) K/mm3 RBC 4.54 (3.65-5.03) M/mm3 Hgb 14.6 (11.8-15.2) gm/dl Hct 41.9 (35.5-45.6) % MCV 93 (84-94) fl MCH 32 (28-32) pg MCHC 35 H (32-34) % RDW 13.8 (13.2-15.2) % Plt Count 206 (140-440) K/mm3 PT 13.2 (12.2-14.9) Sec. INR 0.99 (0.87-1.13) Urine Color Yellow (Yellow) Urine Turbidity Clear (Clear) Urine pH 6.0 (5.0-7.0) Ur Specific [place] 1.019 (1.003-1.030) Urine Protein <15 mg/dl (Negative) mg/dL Urine Glucose (UA) Neg (Negative) mg/dL Urine Ketones 20 (Negative) mg/dL Urine Blood Neg (Negative) Urine Nitrite Neg (Negative) Urine Bilirubin Neg (Negative) Urine Urobilinogen 2.0 (<2.0) mg/dL Ur Leukocyte Esterase Neg (Negative) Urine WBC (Auto) 1.0 (0.0-6.0) /HPF Urine RBC (Auto) 4.0 (0.0-6.0) /HPF Urine Mucus Few /HPF Plasma/Serum Alcohol (0-0.07) % 08/18/19 Range/Units 11:40 WBC (4.5-11.0) K/mm3 RBC (3.65-5.03) M/mm3 Hgb (11.8-15.2) gm/dl Hct (35.5-45.6) % MCV (84-94) fl MCH (28-32) pg MCHC (32-34) % RDW (13.2-15.2) % Plt Count (140-440) K/mm3 PT (12.2-14.9) Sec. INR (0.87-1.13) Urine Color (Yellow) Urine Turbidity (Clear) Urine pH (5.0-7.0) Ur Specific [place] (1.003-1.030) Urine Protein (Negative) mg/dL Urine Glucose (UA) (Negative) mg/dL Urine Ketones (Negative) mg/dL Urine Blood (Negative) Urine Nitrite (Negative) Urine Bilirubin (Negative) Urine Urobilinogen (<2.0) mg/dL Ur Leukocyte Esterase (Negative) Urine WBC (Auto) (0.0-6.0) /HPF Urine RBC (Auto) (0.0-6.0) /HPF Urine Mucus /HPF Plasma/Serum Alcohol < 0.01 (0-0.07) % - EKG Data -: EKG Interpreted by Nh EKG shows normal: sinus rhythm Rate: normal - EKG Data 08/18/19 12:11 Sinus rhythm, 90 bpm, normal axis, QTC 490 ms, premature ventricular contractions, otherwise, unremarkable EKG. Not a STEMI. - Radiology Data Radiology results: report reviewed, image reviewed Print Report Referring Physician: RONNIE MONREAL Patient Name: JORDY ALVAREZ Date of : 1965 Sex: Male Report Date: 2019-08-18 Report Status: Finalized Findings [facility] [address] [place] [address] XRay Report Signed Patient: JORDY ALVAREZ MR#: [id number] : 1965 Acct:[id number] Age/Sex: 53 / M ADM Date: 08/18/19 Loc: ED Attending Dr: Ordering Physician: RONNIE MONREAL MD Date of Service: 08/18/19 Procedure(s): XR chest 1V ap Accession Number(s): [id number] cc: RONNIE MONREAL MD Fluoro Time In Minutes: CHEST 1 VIEW INDICATION: cp. COMPARISON: 03/24/2019 FINDINGS: Support devices: None. Heart: Normal. Lungs/Pleura: No acute pulmonary or pleural findings. IMPRESSION: 1. No acute findings. Signer Name: Raymond Cervantes MD Signed: 08/18/2019 11:58 AM Workstation Name: [id number] Transcribed By: SWATHI Dictated By: Raymond Cervantes MD Electronically Authenticated By: Raymond Cervantes MD Signed Date/Time: 08/18/19 115 DD/ 1158 TD/TT: Critical care attestation.: If time is entered above; I have spent that time in minutes in the direct care of this critically ill patient, excluding procedure time. ED Disposition Clinical Impression: History of drug overdose, Medical clearance for psychiatric admission, Chronic chest pain Disposition: DC/TX-65 PSY HOSP/PSY UNIT Is pt being admited?: No Does the pt Need Aspirin: No Condition: Stable Instructions: Chest Pain (ED) Referrals: MONTANA DE LEON MD [Primary Care Provider] - 3-5 Days
[2019-08-18 11:42] LABS: Bilirubin,Urine NEG (Negative); Blood,Urine NEG (Negative); Color,Urine Yellow (Yellow); Mucus,Urine FEW /HPF; Protein,Urine <15 mg/dL mg/dL (Negative)
[2019-08-18] MEDS: carvediloL 6.25 MG TAB PO SCH ×2 (11:52→23:18)
[2019-08-18 11:53] LABS: Hematocrit 41.9 % (35.5-45.6); Hemoglobin 14.6 gm/dl (11.8-15.2); Mean Corpuscular HGB Conc 35 % (32-34); Mean Corpuscular Volume 93 fl (84-94); Platelet Count 206 K/mm3 (140-440); Red Blood Count 4.54 M/mm3 (3.65-5.03); Red Cell Distribution Width 13.8 % (13.2-15.2)
[2019-08-18] MEDS ORDERED: ASPIRIN 81 MG TAB CHEW PO SCH (12:00)
[2019-08-18] MEDS ORDERED: FOLIC ACID 1 MG TAB PO SCH (12:00)
--- NOTE | 2019-08-18 12:02 | XRay Report ---
CHEST 1 VIEW INDICATION: cp. COMPARISON: 03/24/2019 FINDINGS: Support devices: None. Heart: Normal. Lungs/Pleura: No acute pulmonary or pleural findings. IMPRESSION: 1. No acute findings. Signer Name: Raymond Cervantes MD Signed: 08/18/2019 11:58 AM Workstation Name: [id number]
[2019-08-18 12:03] LABS: INR 0.99 (0.87-1.13)
[2019-08-18 12:13] LABS: Alanine Aminotransferase 41 units/L (7-56); Albumin 4.2 g/dL (3.9-5); BUN/Creatinine Ratio 13; Blood Urea Nitrogen 12 mg/dL (9-20); Calcium 8.9 mg/dL (8.4-10.2); Hemolysis Index 2
[2019-08-18 12:21] LABS: Amphetamine Screen,Urine PRESUMPTIVE NEGATIVE; Benzodiazepines Screen,Urine PRESUMPTIVE NEGATIVE; Cannabinoid Screen,Urine PRESUMPTIVE NEGATIVE; Cocaine Screen,Urine PRESUMPTIVE NEGATIVE; Methadone Screen,Urine PRESUMPTIVE NEGATIVE; Opiate Screen,Urine PRESUMPTIVE NEGATIVE
[2019-08-18] MEDS ORDERED: NON-FORMULARY EACH (Atorvastatin Calcium [Lipitor] 80 MG) PO SCH (22:00)
--- NOTE | 2019-08-18 22:21 | Emergency Department Report ---
Blank Doc - Documentation Documentation: Patient was reexamined by me at 10:21 PM. Upon entering the room the patient is asleep but easily arousable. Patient is alert oriented x3 and able to answer all questions appropriately and states he has no pain and feels well. At this time the patient will be medically cleared and is awaiting mental health evaluation.
[2019-08-19 02:33] VITALS: BP 133/95
[2019-08-19] MEDS ORDERED: CLOPIDOGREL 75 MG TAB PO SCH (10:00)
== END 2019-08-19 02:47 ==
LOC: ED 10:38 → EEVIPCON 10:38 → ED 08-19 02:47
DX: R07.89 Other chest pain (principal); I11.0 Hypertensive heart disease with heart failure; I50.9 Heart failure, unspecified; I25.2 Old myocardial infarction; I25.10 Atherosclerotic heart disease of native coronary artery without angina pectoris; R56.9 Unspecified convulsions; F31.9 Bipolar disorder, unspecified; F41.9 Anxiety disorder, unspecified; F17.200 Nicotine dependence, unspecified, uncomplicated; Z79.899 Other long term (current) drug therapy; Z00.8 Encounter for other general examination; Z98.890 Other specified postprocedural states; Z88.8 Allergy status to other drugs, medicaments and biological substances; Z86.73 Personal history of transient ischemic attack (TIA), and cerebral infarction without residual deficits
CPT/HCPCS: 36415; 71045; 80053; 80307; 81001; 82550; 83735; 84484; 85027; 85610; 93005; 93010; 99285; A9270; J3246; 80320; G0480

== ENCOUNTER 2020-01-18 14:42 | Emergency (ER) | payer MEDICARE ==
[2020-01-18 17:54] LABS: Basophils # (Auto) 0.1 K/mm3 (0.0-0.1); Basophils % (Auto) 1.1 % (0.0-1.8); Eosinophils # (Auto) 0.7 K/mm3 (0.0-0.4); Eosinophils % (Auto) 6.7 % (0.0-4.3); Hematocrit 40.5 % (35.5-45.6); Hemoglobin 13.9 gm/dl (11.8-15.2); Lymphocytes # (Auto) 1.9 K/mm3 (1.2-5.4); Lymphocytes % (Auto) 19.6 % (13.4-35.0); Mean Corpuscular HGB Conc 34 % (32-34); Mean Corpuscular Volume 93 fl (84-94); Monocytes # (Auto) 0.9 K/mm3 (0.0-0.8); Monocytes % (Auto) 9.4 % (0.0-7.3); Platelet Count 265 K/mm3 (140-440); Red Blood Count 4.36 M/mm3 (3.65-5.03); Red Cell Distribution Width 14.4 % (13.2-15.2)
[2020-01-18 18:14] LABS: Alanine Aminotransferase 32 units/L (7-56); Blood Urea Nitrogen 12 mg/dL (9-20); Calcium 9.2 mg/dL (8.4-10.2); Hemolysis Index 15
[2020-01-18 18:16] LABS: BUN/Creatinine Ratio 17
[2020-01-19 00:57] VITALS: BP 153/69
[2020-01-19 03:35] LABS: Bilirubin,Urine NEG (Negative); Blood,Urine NEG (Negative); Color,Urine Straw (Yellow); Protein,Urine <15 mg/dL mg/dL (Negative); Urobilinogen,Urine < 2.0 mg/dL (<2.0); WBC,Urine < 1.0 /HPF (0.0-6.0)
[2020-01-19 03:41] LABS: Amphetamine Screen,Urine PRESUMPTIVE NEGATIVE; Benzodiazepines Screen,Urine PRESUMPTIVE NEGATIVE; Cannabinoid Screen,Urine PRESUMPTIVE NEGATIVE; Cocaine Screen,Urine PRESUMPTIVE NEGATIVE; Methadone Screen,Urine PRESUMPTIVE NEGATIVE; Opiate Screen,Urine PRESUMPTIVE NEGATIVE
== END 2020-01-19 03:12 | disposition left against medical advice (07) ==
LOC: ED 14:42
DX: Z53.21 Procedure and treatment not carried out due to patient leaving prior to being seen by health care provider (principal)
CPT/HCPCS: 36415; 80053; 80307; 80320; 81001; 85025; G0480

== ENCOUNTER 2020-01-19 22:13 | Emergency (ER) | payer MEDICARE ==
--- NOTE | 2020-01-19 22:52 | Emergency Department Report ---
ED Psych HPI - General Chief Complaint: Psych Stated Complaint: SUICIDAL IDEATIONS Time Seen by Provider: 01/19/20 22:31 Source: patient, EMS Mode of arrival: Ambulatory Limitations: No Limitations - History of Present Illness Initial Comments: Patient is a 54-year-old male that presents emergency room with complaints of suicidal ideations and depression. Patient states that he has no specific thoughts but he has thought about killing himself in many different ways to include self-inflicted violence and drinking himself to . Patient denies hallucinations. Patient denies homicidal ideations. Patient states his symptoms and his thoughts are worsening. Patient denies any physical complaints. Patient denies recent travel. Patient denies recent international travel. Patient denies exposure to the novel coronavirus. Patient denies sick contacts. Patient denies fever and chills. Patient denies cough. Patient denies diarrhea. Patient denies coming in contact with anybody with symptoms of the novel coronavirus. MD Complaint: suicidal ideation -: Sudden Associated Psychiatric Symptoms: depression, suicidal ideation History of same: Yes Quality: constant Improves With: none Worsens With: none Context: significant life stressor Associated Symptoms: denies other symptoms If Self Harm: admits thoughts of, has plan - Related Data Home Medications Medication Instructions Recorded Confirmed Last Taken Nitroglycerin 0.4 mg SUBLINGUAL PRN PRN 08/18/19 01/19/20 Unknown QUEtiapine [SEROquel] 200 mg PO QHS 01/19/20 01/19/20 Unknown Previous Rx's Medication Instructions Recorded Last Taken Type Aspirin [Aspirin BABY CHEW TAB] 81 mg PO QDAY #30 tab.chew 01/17/20 Unknown Rx AtorvaSTATin [Lipitor] 40 mg PO QHS #30 tablet 01/17/20 Unknown Rx Clopidogrel [Plavix] 75 mg PO QDAY #30 tablet 01/17/20 Unknown Rx FLUoxetine [PROzac] 40 mg PO QDAY #30 capsule 01/17/20 Unknown Rx Famotidine [Pepcid] 20 mg PO BID #60 tablet 01/17/20 Unknown Rx Folic Acid [Folvite] 1 mg PO DAILY #30 tablet 01/17/20 Unknown Rx ISOSORBIDE MONOnitrate [Imdur ER] 30 mg PO QDAY #30 tablet 01/17/20 Unknown Rx carvediloL [Coreg] 6.25 mg PO BID #60 tablet 01/17/20 Unknown Rx lisinopriL [Zestril TAB] 5 mg PO QDAY #30 tablet 01/17/20 Unknown Rx traZODone [Desyrel] 50 mg PO QHS #30 tablet 01/17/20 Unknown Rx Allergies Allergy/AdvReac Type Severity Reaction Status Date / Time chlorpromazine Allergy Seizure Verified 08/18/19 11:03 [From Thorazine] phenobarbital Allergy Seizure Verified 08/18/19 11:03 phenytoin [From Dilantin] Allergy Seizure Verified 08/18/19 11:03 ED Review of Systems ROS: Stated complaint: SUICIDAL IDEATIONS Other details as noted in HPI Constitutional: denies: chills, fever Eyes: denies: eye pain, eye discharge, vision change ENT: denies: ear pain, throat pain Respiratory: denies: cough, shortness of breath, wheezing Cardiovascular: denies: chest pain, palpitations Endocrine: no symptoms reported Gastrointestinal: denies: abdominal pain, nausea, diarrhea Genitourinary: denies: urgency, dysuria Musculoskeletal: denies: back pain, joint swelling, arthralgia Skin: denies: rash, lesions Neurological: denies: headache, weakness, paresthesias Psychiatric: depression, suicidal thoughts. denies: anxiety Hematological/Lymphatic: denies: easy bleeding, easy bruising ED Past Medical Hx - Past Medical History Previous Medical History?: Yes Hx Hypertension: Yes Hx CVA: Yes (right arm & leg weakness) Hx Heart Attack/AMI: Yes (Aortic stent) Hx Congestive Heart Failure: Yes Hx Diabetes: No Hx Deep Vein Thrombosis: No Hx Pulmonary Embolism: No Hx GERD: No Hx Liver Disease: No Hx Renal Disease: No Hx Sickle Cell Disease: No Hx Arthritis: No Hx Headaches / Migraines: No Hx Seizures: Yes Hx Kidney Stones: No Hx Psychiatric Treatment: Yes (BIPOLAR AND ANXIETY) Hx Asthma: Yes Hx COPD: No Hx Tuberculosis: No Hx Dementia: No Hx HIV: No Additional medical history: Sleep Apnea,facial droop r/t jaw surgery 11/2017, PVC'S - Surgical History Hx Coronary Stent: Yes Hx Open Heart Surgery: No Hx Pacemaker: No Hx Internal Defibrillator: No Hx Cholecystectomy: No Hx Appendectomy: No Hx Breast Surgery: No Additional Surgical History: Lower Back, jaw 2018. Right Hip, stent placed - Family History Family history: no significant - Social History Smoking Status: Current Some Day Smoker Substance Use Type: None - Medications Home Medications: Home Medications Medication Instructions Recorded Confirmed Last Taken Type Nitroglycerin 0.4 mg SUBLINGUAL PRN PRN 08/18/19 01/19/20 Unknown History Aspirin [Aspirin BABY CHEW TAB] 81 mg PO QDAY #30 tab.chew 01/17/20 01/19/20 Unknown Rx AtorvaSTATin [Lipitor] 40 mg PO QHS #30 tablet 01/17/20 01/19/20 Unknown Rx Clopidogrel [Plavix] 75 mg PO QDAY #30 tablet 01/17/20 01/19/20 Unknown Rx FLUoxetine [PROzac] 40 mg PO QDAY #30 capsule 01/17/20 01/19/20 Unknown Rx Famotidine [Pepcid] 20 mg PO BID #60 tablet 01/17/20 01/19/20 Unknown Rx Folic Acid [Folvite] 1 mg PO DAILY #30 tablet 01/17/20 01/19/20 Unknown Rx ISOSORBIDE MONOnitrate [Imdur ER] 30 mg PO QDAY #30 tablet 01/17/20 01/19/20 Unknown Rx carvediloL [Coreg] 6.25 mg PO BID #60 tablet 01/17/20 01/19/20 Unknown Rx lisinopriL [Zestril TAB] 5 mg PO QDAY #30 tablet 01/17/20 01/19/20 Unknown Rx traZODone [Desyrel] 50 mg PO QHS #30 tablet 01/17/20 01/19/20 Unknown Rx QUEtiapine [SEROquel] 200 mg PO QHS 01/19/20 01/19/20 Unknown History ED Physical Exam - General Limitations: No Limitations General appearance: alert, in no apparent distress - Head Head exam: Present: atraumatic, normocephalic - Eye Eye exam: Present: normal appearance - ENT ENT exam: Present: mucous membranes moist - Neck Neck exam: Present: normal inspection - Respiratory Respiratory exam: Present: normal lung sounds bilaterally. Absent: respiratory distress - Cardiovascular Cardiovascular Exam: Present: regular rate, normal rhythm. Absent: systolic murmur, diastolic murmur, rubs, gallop - GI/Abdominal GI/Abdominal exam: Present: soft, normal bowel sounds - Rectal Rectal exam: Present: deferred - Extremities Exam Extremities exam: Present: normal inspection - Back Exam Back exam: Present: normal inspection - Neurological Exam Neurological exam: Present: alert, oriented X3 - Psychiatric Psychiatric exam: Present: depressed, suicidal ideation - Skin Skin exam: Present: warm, dry, intact, normal color. Absent: rash ED Course Vital Signs 01/19/20 22:25 Temperature 98.5 F Pulse Rate 53 L Respiratory 18 Rate Blood Pressure 148/61 Blood Pressure 148/61 [Left] O2 Sat by Pulse 96 Oximetry - Reevaluation(s) Reevaluation #1: Initial evaluation done. Patient placed on a ER hold. 01/19/20 22:44 Reevaluation #2: I discussed all results and clinical findings with patient. I discussed plan of care with patient. Patient agrees with plan of care. Patient is medically cleared. Patient will remain in the ER as an ER hold. Patient's final disposition will come from our mental health and psychiatry team. 01/20/20 00:57 ED Medical Decision Making - Lab Data Result diagrams: 01/19/20 23:04 01/19/20 23:04 - Medical Decision Making Patient is a 54-year-old male who presents emergency room with complaints of suicidal ideations. Patient states she has multiple plans. Patient had labs done. Patient's labs are unremarkable. Patient is medically clear. Patient's final disposition will come from our psychiatry mental health team. - Differential Diagnosis Depression, suicidal ideations. Critical care attestation.: If time is entered above; I have spent that time in minutes in the direct care of this critically ill patient, excluding procedure time. ED Disposition Clinical Impression: Suicidal ideations Is pt being admited?: No Does the pt Need Aspirin: No Condition: Stable Time of Disposition: 00:58
[2020-01-19 23:37] LABS: Basophils # (Auto) 0.1 K/mm3 (0.0-0.1); Basophils % (Auto) 0.6 % (0.0-1.8); Eosinophils # (Auto) 0.4 K/mm3 (0.0-0.4); Eosinophils % (Auto) 2.8 % (0.0-4.3); Hematocrit 38.7 % (35.5-45.6); Lymphocytes # (Auto) 1.8 K/mm3 (1.2-5.4); Lymphocytes % (Auto) 13.5 % (13.4-35.0); Mean Corpuscular HGB Conc 34 % (32-34); Mean Corpuscular Volume 94 fl (84-94); Monocytes # (Auto) 1.2 K/mm3 (0.0-0.8); Monocytes % (Auto) 9.1 % (0.0-7.3); Platelet Count 276 K/mm3 (140-440); Red Blood Count 4.13 M/mm3 (3.65-5.03); Red Cell Distribution Width 14.4 % (13.2-15.2)
[2020-01-19 23:47] LABS: Amphetamine Screen,Urine PRESUMPTIVE NEGATIVE; Benzodiazepines Screen,Urine PRESUMPTIVE NEGATIVE; Cannabinoid Screen,Urine PRESUMPTIVE NEGATIVE; Cocaine Screen,Urine PRESUMPTIVE NEGATIVE; Methadone Screen,Urine PRESUMPTIVE NEGATIVE; Opiate Screen,Urine PRESUMPTIVE NEGATIVE
[2020-01-19 23:51] LABS: Bilirubin,Urine NEG (Negative); Blood,Urine NEG (Negative); Color,Urine Yellow (Yellow); Mucus,Urine FEW /HPF; Protein,Urine <15 mg/dL mg/dL (Negative)
[2020-01-19 23:52] LABS: BUN/Creatinine Ratio 11; Blood Urea Nitrogen 9 mg/dL (9-20); Calcium 8.8 mg/dL (8.4-10.2); Hemolysis Index 8
--- NOTE | 2020-01-20 11:14 | Consultation ---
History of Present Illness - Reason for Consult Consult date: 01/20/20 Reason for consult: SI - History of Present Psychiatric Illness Jaden Alvarado is a 54y/o male patient who presented to the ER for depression and suicidal thoughts. During my interview with the patient today, he is lying down. The patient is asleep, and arouses with slight difficulty. The patient is or iented x 3. He is speaking in a low, barely audible tone. He makes poor eye contact. The patient states he's been "dealing with depression for awhile." He states, "but it seems to be getting worse." The patient says he was "diagnosed with depression in the past but been off my meds. 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 PAST PSYCHIATRIC HISTORY: Diagnoses: Bipolar, schizophrenia and depression Suicide attempts or Self-harm behavior: Yes, but mostly thoughts Prior psychiatric hospitalizations: Yes Substance Abuse history: Denies Previous psychiatric medications tried: Seroquel Outpatient treatment: 6 months PAST MEDICAL HISTORY: None reported Family Psychiatric History: None reported or documented SOCIAL HISTORY Marital Status: Single Living Arrangements: Homeless Employment Status: Disabled Access to guns/weapons: Denies Education: 10th grade History of Abuse: Denies Legal History: Denies REVIEW OF SYSTEMS Constitutional: Negative for weight loss ENT: Negative for stridor Respiratory: Shortness of breath All other systems reviewed and are negative, except respiratory MENTAL STATUS EXAMINATION General Appearance: Dressed appropriately Behavior: calm, cooperative. Poor eye contact Mood: "depressed" Affect and affective range: Flat Thought Process: Goal directed Speech: Normal tone and pace Thought Content: Suicidal Ideation: Yes Homicidal Ideation: Denies Hallucinations: Denies Delusions: Denies Insight and Judgment: Limited Memory/Cognition: Limited Attention: Normal ASSESSMENT Bipolar Disorder, Severe, Current Episode Depressed w/o Psychotic Features RECOMMENDATIONS Restart Seroquel 200mg po qhs Start Zoloft 25mg po daily Sitter: Defer to primary Medical: per primary Disposition: Recommend acute inpatient psychiatric treatment once medically clear Will continue to follow Thank you for this consult. Please call with any questions or concerns. Medications and Allergies Allergies Allergy/AdvReac Type Severity Reaction Status Date / Time chlorpromazine Allergy Seizure Verified 08/18/19 11:03 [From Thorazine] phenobarbital Allergy Seizure Verified 08/18/19 11:03 phenytoin [From Dilantin] Allergy Seizure Verified 08/18/19 11:03 Home Medications Medication Instructions Recorded Confirmed Last Taken Type Nitroglycerin 0.4 mg SUBLINGUAL PRN PRN 08/18/19 01/19/20 Unknown History Aspirin [Aspirin BABY CHEW TAB] 81 mg PO QDAY #30 tab.chew 01/17/20 01/19/20 Unknown Rx AtorvaSTATin [Lipitor] 40 mg PO QHS #30 tablet 01/17/20 01/19/20 Unknown Rx Clopidogrel [Plavix] 75 mg PO QDAY #30 tablet 01/17/20 01/19/20 Unknown Rx FLUoxetine [PROzac] 40 mg PO QDAY #30 capsule 01/17/20 01/19/20 Unknown Rx Famotidine [Pepcid] 20 mg PO BID #60 tablet 01/17/20 01/19/20 Unknown Rx Folic Acid [Folvite] 1 mg PO DAILY #30 tablet 01/17/20 01/19/20 Unknown Rx ISOSORBIDE MONOnitrate [Imdur ER] 30 mg PO QDAY #30 tablet 01/17/20 01/19/20 Unknown Rx carvediloL [Coreg] 6.25 mg PO BID #60 tablet 01/17/20 01/19/20 Unknown Rx lisinopriL [Zestril TAB] 5 mg PO QDAY #30 tablet 01/17/20 01/19/20 Unknown Rx traZODone [Desyrel] 50 mg PO QHS #30 tablet 01/17/20 01/19/20 Unknown Rx QUEtiapine [SEROquel] 200 mg PO QHS 01/19/20 01/19/20 Unknown History Mental Status Exam - Vital signs Last Vital Signs Temp 98.5 F 01/20/20 10:10 Pulse 79 01/20/20 10:10 Resp 20 01/20/20 10:10 BP 138/78 01/20/20 10:10 Pulse Ox 97 01/20/20 10:10 Results Result Diagrams: 01/19/20 23:04 01/19/20 23:04 Abnormal lab results 01/19/20 01/19/20 01/19/20 Range/Units 23:04 23:04 23:04 WBC 13.0 H (4.5-11.0) K/mm3 [place] % (Auto) 9.1 H (0.0-7.3) % [place] # 1.2 H (0.0-0.8) K/mm3 Seg Neutrophils % 74.0 H (40.0-70.0) % Seg Neutrophils # 9.6 H (1.8-7.7) K/mm3 Glucose 115 H (75-100) mg/dL Salicylates < 0.3 L (2.8-20.0) mg/dL Acetaminophen (10.0-30.0) ug/mL 01/19/20 Range/Units 23:04 WBC (4.5-11.0) K/mm3 [place] % (Auto) (0.0-7.3) % [place] # (0.0-0.8) K/mm3 Seg Neutrophils % (40.0-70.0) % Seg Neutrophils # (1.8-7.7) K/mm3 Glucose (75-100) mg/dL Salicylates (2.8-20.0) mg/dL Acetaminophen 5.0 L (10.0-30.0) ug/mL All other labs normal.
[2020-01-20] MEDS: SERTRALINE 25 MG TAB PO SCH (11:55)
[2020-01-20] MEDS: QUEtiapine 200 MG TAB PO SCH (22:30)
[2020-01-21] MEDS: SERTRALINE 25 MG TAB PO SCH (10:19)
--- NOTE | 2020-01-21 12:55 | Progress Note ---
Subjective - Reason for Consult Consult date: 01/21/20 Reason for consult: MHE Requesting physician: NEAL EARLY III - Chief Complaint Chief complaint: Psych Progress Patient seen in ER today reports persistent depressed mood accompanied by SI. Patients says he feels down and mood. He also reports poor sleep pattern. REVIEW OF SYSTEMS Constitutional: Negative for weight loss ENT: Negative for stridor Respiratory: Shortness of breath All other systems reviewed and are negative, except respiratory MENTAL STATUS EXAMINATION General Appearance: Dressed appropriately Behavior: calm, cooperative. Poor eye contact Mood: "depressed" Affect and affective range: Flat Thought Process: Goal directed Speech: Normal tone and pace Thought Content: Suicidal Ideation: Yes Homicidal Ideation: Denies Hallucinations: Denies Delusions: Denies Insight and Judgment: Limited Memory/Cognition: Limited Attention: Normal ASSESSMENT Bipolar Disorder, Severe, Current Episode Depressed w/o Psychotic Features RECOMMENDATIONS continue Seroquel 200mg po qhs Start Zoloft 25mg po daily Sitter: Defer to primary Medical: per primary Disposition: Recommend acute inpatient psychiatric treatment once medically clear Will continue to follow Thank you for this consult. Please call with any questions or concerns. Mental Status Exam - Vital signs Last Vital Signs Temp 98.0 F 01/21/20 08:33 Pulse 53 L 01/21/20 08:33 Resp 20 01/21/20 08:33 BP 133/88 01/21/20 08:33 Pulse Ox 96 01/21/20 08:33
[2020-01-21] MEDS: QUEtiapine 200 MG TAB PO SCH (22:32)
[2020-01-22 08:45] VITALS: BP 120/80
--- NOTE | 2020-01-22 08:55 | Progress Note ---
Subjective - Reason for Consult Consult date: 01/22/20 Reason for consult: MHE Requesting physician: NEAL EARLY III - Chief Complaint Chief complaint: Psych Progress Nurse reports pt being prepared for transport to mental health facility. Patient not seen ASSESSMENT Bipolar Disorder, Severe, Current Episode Depressed w/o Psychotic Features RECOMMENDATIONS continue Seroquel 200mg po qhs Start Zoloft 25mg po daily Sitter: Defer to primary Medical: per primary Disposition: Recommend acute inpatient psychiatric treatment once medically clear Will continue to follow Thank you for this consult. Please call with any questions or concerns. Mental Status Exam - Vital signs Last Vital Signs Temp 97.6 F 01/22/20 08:43 Pulse 63 01/22/20 08:43 Resp 20 01/22/20 08:43 BP 120/80 01/22/20 08:43 Pulse Ox 97 01/22/20 08:43
== END 2020-01-22 13:30 ==
LOC: EEVIPCON 22:13 → ED 22:13
DX: R45.851 Suicidal ideations (principal); F32.9 Major depressive disorder, single episode, unspecified; I50.9 Heart failure, unspecified; I25.2 Old myocardial infarction; I11.0 Hypertensive heart disease with heart failure; R56.9 Unspecified convulsions; J45.909 Unspecified asthma, uncomplicated; F17.200 Nicotine dependence, unspecified, uncomplicated; Z98.890 Other specified postprocedural states; Z79.899 Other long term (current) drug therapy; Z88.8 Allergy status to other drugs, medicaments and biological substances
CPT/HCPCS: 36415; 80048; 80307; 80320; 81001; 85025; G0480; U0003-CS